=== PATIENT | female | born 1955 | race Caucasian/White ===

== ENCOUNTER 2020-09-25 12:38 | Emergency (ER) | payer OTHER, SELFPAY ==
--- NOTE | ~2020-09-25 | XR_ITS ---
EXAMINATION: XR foot LT min 3V DATE: 09/25/2020 13:08 INDICATION: Left foot pain TECHNIQUE: Dorsoplantar, lateral, and 2 oblique views of the left foot were obtained. COMPARISON: None. FINDINGS: There is soft tissue swelling of the foot overlying the distal metatarsals. There is a ques tionable nondisplaced fracture in the distal shaft of the fourth metatarsal. There is mild osteoarthr itis of multiple interphalangeal joints and moderate osteoarthritis at the first metatarsophalangeal joint. IMPRESSION: 1. Possible nondisplaced fracture at the distal shaft of the fourth metatarsal. Recommend correlation for tenderness at this site. Reviewed, dictated and finalized at location B.
[2020-09-25 12:52] VITALS: BP 143/70; PULSE 71; RESP 20; TEMP 36.8; O2SAT 98
--- NOTE | 2020-09-25 14:15 | ED.EXTPRO ---
HPI - Extremity Problem General Chief complaint: Extremity Problem,Nontraumatic Stated complaint: foot pain, non traumatic Time Seen by Provider: 09/25/20 14:01 Source: patient Mode of arrival: ambulatory Limitations: no limitations History of Present Illness HPI Narrative: Patient is a 65 year old female who presents with left foot pain and swelling x 1 day. Patient reports taking a step and feeling stabbing pain . She denies known injury. She denies history of dvt. Swelling noted to dorsal foot. She denies taking otc medication for pain, denies all other complaints at this time. Patient does have a history of gout, however, she takes allopurinol daily and has not had any recent flares. MD Complaint: extremity pain Related Data Allergies Allergy/AdvReac Type Severity Reaction Status Date / Time SHELLFISH Allergy Unknown Uncoded 09/11/18 12:46 Review of Systems Review of Systems: Narrative: CONSTITUTIONAL: Denies fever, chills, or sweats. EYES: Denies visual changes, redness, or discharge. ENT: Denies rhinorrhea, congestion, sore throat, or otalgia. CARDIOVASCULAR: Denies chest pain, palpitations, or edema. RESPIRATORY: Denies cough or dyspnea. GASTROINTESTINAL: Denies abdominal pain, nausea, vomiting, or diarrhea. GENITOURINARY: Denies dysuria or hematuria. SKIN: Denies rash or itching. MUSCULOSKELETAL: Reports left foot pain NEUROLOGIC: Denies headache, numbness, dizziness, or weakness. PSYCHIATRIC: Denies anxiety or depression. [facility] Past Medical History Medical History Diabetes Gout HTN (hypertension) Surgical History Surgical History H/O foot surgery History of hysterectomy Social History Social History (Updated 09/25/20 @ 14:21 by BRAYDON Zee) Smoking status: Never smoker Alcohol intake: never Substance use: never Occupation/Education: occupation Gender identity (if verbalized by the patient): Female Comments At the time of signature, I have reviewed and agree with nursing past medical, surgical, social, and family history unless otherwise noted. Please see nursing chart for further information. There is no relevant family history pertinent to the presenting complaint. Exam Narrative: Exam Narrative: GENERAL: Well-appearing, well-nourished, and in no acute distress. HEAD: Normocephalic, atraumatic. EYES: EOMI. No redness or drainage. Conjunctiva are normal. ENT: Mucous membranes pink and moist. CHEST: No respiratory distress. Clear to auscultation. HEART: Regular rate and rhythm. EXTREMITIES: Normal range of motion. Edema noted to left dorsal foot, tenderness with palpation along third/fourth metatarsal. Distal sensation intact, good capillary refill SKIN: Warm, dry, no rash. NEURO: No focal deficits. Alert and oriented x3. Gait steady. PSYCH: Normal affect. No signs of depression or anxiety. Course Vital Signs Vital signs: Vital Signs Temperature 36.8 C 09/25/20 12:52 Pulse Rate 71 09/25/20 12:52 Respiratory Rate 20 09/25/20 12:52 Blood Pressure 143/70 H 09/25/20 12:52 Pulse Oximetry 98 09/25/20 12:52 Temperature 36.8 C 09/25/20 12:52 Pulse Rate 79 09/25/20 14:29 Respiratory Rate 18 09/25/20 14:29 Blood Pressure 180/103 H 09/25/20 14:29 Pulse Oximetry 99 09/25/20 14:29 Reviewed-patient is informed that they may have pre-hypertension or hypertension based on a blood pressure reading. I recommend the patient call the primary care provider listed on their discharge instructions or a physician of their choice this week to arrange follow-up for further evaluation of possible pre-hypertension or hypertension. Procedures Orthopedic Splinting/Casting Injury #1: Splinting/Casting Date: 09/25/20 Splinting/Casting Time: 16:17 Side: left Lower Extremity Injury Location: foot Splint: customized in ED
[2020-09-25 14:29] VITALS: BP 180/103; PULSE 79; RESP 18; O2SAT 99
[2020-09-25 15:44] LABS: D Dimer 0.29 ug/mL (<0.48)
[2020-09-25 16:30] VITALS: BP 153/73; PULSE 74; RESP 16; O2SAT 98
[2020-09-25 16:59] VITALS: BP 149/70; PULSE 73; RESP 16; O2SAT 97
== END 2020-09-25 17:01 | disposition home or self-care (01) ==
PROVIDERS: Emergency Provider Nurse Practitioner; PCP Internal Medicine
DX: S92.345A Nondisplaced fracture of fourth metatarsal bone, left foot, initial encounter for closed fracture (principal); I10 Essential (primary) hypertension; M10.9 Gout, unspecified; E11.9 Type 2 diabetes mellitus without complications
CPT/HCPCS: 29515; 36415; 73630; 85380; 99284

== ENCOUNTER 2021-06-17 16:05 | Emergency (ER) | payer OTHER, SELFPAY ==
--- NOTE | ~2021-06-17 | XR_ITS ---
XR wrist LT min 3V DATE: 06/17/2021 16:47 INDICATION: Fall. Left wrist injury TECHNIQUE: 4 views COMPARISON: 09/07/2012 left wrist FINDINGS: There is prominent osteoarthritic change at the first carpometacarpal joint. There is osteo arthritis at the first metacarpophalangeal and interphalangeal joints. No fracture or dislocation, periosteal reaction or bone destruction is detected. Osteopenia. IMPRESSION: No recent fracture or dislocation Polyarticular osteoarthritis Osteopenia Reviewed, dictated and finalized at location A.
[2021-06-17 16:09] VITALS: BP 140/74; PULSE 89; RESP 15; O2SAT 98
--- NOTE | 2021-06-17 16:24 | PC.NURSE ---
Dr. Linda at bedside for pt assessment.
--- NOTE | 2021-06-17 16:45 | PC.NURSE ---
xray at bedside.
--- NOTE | 2021-06-17 17:34 | ED.UPPEXIN ---
HPI - Extremity Injury (Upper) General Chief Complaint: Extremity Injury, Upper Stated Complaint: right arm swelling Time Seen by Provider: 06/17/21 16:20 Source: RN notes reviewed History of Present Illness HPI narrative: Patient presents emergency room from home for left wrist pain. Patient states that she has pain in her left wrist that is worse with flexion extension of the wrist with some swelling over the ulnar aspect of the wrist. 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 and that gripping things and pulling the lever the pain worse she has pain is been ongoing for several weeks but is worsened over the past 2 days she also states that she has had numbness and tingling in her fourth and fifth digits of the left hand for approximately 2 months states she has had a cubital tunnel release on that left side but it was not effective she denies any direct trauma or injury states she took naproxen today Related Data Home Medications Medication Instructions Recorded Confirmed allopurinol 100 mg tablet 100 mg PO DAILY 09/30/20 01/11/21 atenolol 25 mg tablet 25 mg PO DAILY 09/30/20 01/11/21 furosemide 20 mg tablet 20 mg PO QAM 09/30/20 01/11/21 metformin 500 mg tablet 500 mg PO DAILY 09/30/20 01/11/21 sitagliptin 25 mg tablet 25 mg PO DAILY 09/30/20 01/11/21 Allergies Allergy/AdvReac Type Severity Reaction Status Date / Time SHELLFISH Allergy Unknown unknown Uncoded 06/17/21 16:20 Review of Systems Review of Systems: Gen.: Denies fevers or chills Musculoskeletal: See HPI Neuro: Reports numbness and tingling of left fourth and fifth digits Skin: Denies rash Endo: Denies DM PMFSH Past Medical History Medical History Diabetes Gout HTN (hypertension) Surgical History Surgical History H/O foot surgery History of hysterectomy Social History Social History Alcohol intake: never Substance use: never Gender identity (if verbalized by the patient): Female Exam Narrative: APPEARANCE: No acute distress, nontoxic, resting in bed Eyes: EOMI HEENT: Normocephalic, atraumatic, RESPIRATORY: No respiratory distress MUSCULOSKELETAl: Tender palpation diffusely over the left wrist mild swelling over the ulnar aspect with pain with flexion and extension of the wrist tenderness palpation over the carpal tunnel full flexion-extension of all 5 MCP and IP joints no tenderness of left elbow full range of motion radial pulse 2+ left extremity is neurovascular intact with five-point tactile discrimination down to 3 mm in the left fourth and fifth digits NEURO: Awake and alert. Following commands, speech normal, no focal deficits SKIN:: Warm, dry. Normal Color no rash or lesions Course Course Emergency Course: Discussed with patient results of workup and diagnosis. Discussed need for follow-up with primary care, proper use of medication, and reasons to return to the emergency department. Patient understands and agrees to current treatment plan discussed with patient wearing a cock-up wrist splint Vital Signs Vital signs: Vital Signs Pulse Rate 89 06/17/21 16:09 Respiratory Rate 15 06/17/21 16:09 Blood Pressure 140/74 06/17/21 16:09 Pulse Oximetry 98 06/17/21 16:09 Pulse Rate 89 06/17/21 16:09 Respiratory Rate 15 06/17/21 16:09 Blood Pressure 140/74 06/17/21 16:09 Pulse Oximetry 98 06/17/21 16:09 MDM - Extremity Injury (Upper) MDM Narrative Medical decision making narrative: Patient?s injury is consistent with muscular skeletal etiology. No signs of neurologic or vascular compromise to exam. Compartments are soft without signs of compartment syndrome. Pain is consistent with exam and injury. Suspect component of carpal tunnel outpatient follow-up with hand surgeon Imaging Data Radiologist's impress
== END 2021-06-17 17:50 | disposition home or self-care (01) ==
PROVIDERS: Emergency Provider Emergency Medicine; PCP Internal Medicine
DX: S63.502A Unspecified sprain of left wrist, initial encounter (principal); E11.9 Type 2 diabetes mellitus without complications; I10 Essential (primary) hypertension; M10.9 Gout, unspecified; M19.032 Primary osteoarthritis, left wrist; M85.832 Other specified disorders of bone density and structure, left forearm; Z79.84 Long term (current) use of oral hypoglycemic drugs; X50.9XXA Other and unspecified overexertion or strenuous movements or postures, initial encounter
CPT/HCPCS: 73110; 99283

== ENCOUNTER 2022-11-05 12:13 | Emergency (ER) | payer OTHER, SELFPAY ==
--- NOTE | ~2022-11-05 | XR_ITS ---
EXAMINATION: XR chest 2V DATE: 11/05/2022 13:30 INDICATION: Left chest pain TECHNIQUE: Frontal and lateral views of the chest are obtained COMPARISON: None available FINDINGS: There is an 8 mm nodule of the left upper lobe. No pleural effusion or pneumothorax. The ca rdiomediastinal silhouette is normal. There is moderate thoracic spondylosis. IMPRESSION: 1. No acute cardiopulmonary abnormality. 2. 8mm nodule of the left upper lobe. Follow-up nonemergent CT of the chest is recommended. Reviewed, dictated and finalized at location A.
--- NOTE | ~2022-11-05 | CT_ITS ---
EXAMINATION: CT abdomen pelvis wo con DATE: 11/05/2022 13:28 INDICATION: Left-sided abdominal pain TECHNIQUE: Computed tomography (CT) of the abdomen and pelvis was performed without intravenous contr ast. The dose-length product (DLP) was 1361.19 mGy-cm. Automated exposure control and iterative recon struction technique were employed. COMPARISON: None FINDINGS: The lung bases are clear. The heart size is normal. The liver, spleen, and right adrenal gl and are normal. There are punctate calcifications of the pancreas which could reflect chronic pancrea titis. There is mild gallbladder distention of unclear etiology or significance. There is a 1.6 cm lo w-density mass of the left adrenal gland, consistent with an adenoma. There is a 7 mm cyst of the rig ht kidney. The left kidney is unremarkable. No stones are identified in the kidneys, ureters, or blad lyndsay. No hydronephrosis or hydroureter. No pathologically enlarged abdominal or pelvic lymph nodes are identified. No free intraperitoneal gas or evidence of bowel obstruction. The appendix is normal. Co lonic diverticulosis is present without evidence of diverticulitis. There is severe lumbar spondylosi s at L4-5 and L5-S1. IMPRESSION: 1. No CT correlate for the patient's symptoms. Reviewed, dictated and finalized at location A.
[2022-11-05 12:17] VITALS: BP 142/63; PULSE 83; RESP 20; TEMP 36.4; O2SAT 99
[2022-11-05 12:36] LABS: Basophils Absolute Auto 0.1 K/mm3 (0.0-0.1); Basophils Percent Auto 0.6 % (0.2-1.2); Eosinophils Absolute Auto 0.3 K/mm3 (0-0.3); Eosinophils Percent Auto 4.2 % (0-4.4); Hematocrit 40.2 % (37.0-47.0); Hemoglobin 12.6 g/dL (12.0-15.0); Immature Granulocyte Absolute 0.01 K/mm3 (0.00-0.031); Immature Granulocyte Percent A 0.1 % (0-0.5); Lymphocytes Absolute Auto 2.81 K/mm3 (0.9-3.2); Lymphocytes Percent Auto 36.1 % (18.3-44.2); Mean Corpuscular HGB Conc 31.3 g/dl (32-36); Mean Corpuscular Volume 92.4 fl (80-100); Mean Platelet Volume 8.3 fl (7.4-10.4); Monocytes Absolute Auto 0.5 K/mm3 (0.1-0.6); Monocytes Percent Auto 6.8 % (2.6-8.5); Neutrophils Absolute Auto 4.1 K/mm3 (1.3-6.7); Neutrophils Percent Auto 52.2 % (45.5-73.1); Platelet Count Result 270 k/mm3 (150-375); Red Blood Count 4.35 M/mm3 (4.2-5.4); Red Cell Distribution Width 15.3 % (11.5-14.5); White Blood Count 7.8 K/mm3 (4.5-10.0)
[2022-11-05 12:46] LABS: Alanine Aminotransferase 26 U/L (6-35); Albumin Level 4.2 g/dL (3.5-5.1); Alkaline Phosphatase 84 U/L (38-126); Anion Gap 5 mmol/L (8-16); Aspartate Amino Transferase 30 U/L (14-36); Bilirubin,Total 0.4 mg/dL (0.2-1.3); Blood Urea Nitrogen 10 mg/dL (7-17); Calcium 9.2 mg/dL (8.4-10.2); Carbon Dioxide 30 mmol/L (22-30); Chloride 101 mmol/L (98-107); Estimated CRCL calculation 89 ml/min; Estimated Glomerular Filt Rate > 60; Glucose 118 mg/dL (65-110); Lipase 100 U/L (23-300); Potassium 4.7 mmol/L (3.4-5.0); Sodium 136 mmol/L (137-145)
--- NOTE | 2022-11-05 12:54 | ED.ABDPAIN ---
HPI - Abdominal Pain General Chief Complaint: Abdominal Pain Stated Complaint: L SIDED INT ABD PAIN X2 WKS Time Seen by Provider: 11/05/22 12:49 History of Present Illness HPI narrative: Patient is a 67-year-old female history of diabetes, hypertension here with multiple complaints including left-sided upper abdominal pain and rash. Patient notes that 2 weeks ago she noted some left flank/ upper abdominal pain. She notes it was sharp, present for several minutes during the middle of the night and self-resolved at that time after taking ibuprofen. She notes it began again last night around 2:00 a.m. in the morning. Pain has been present since that time, sharp in nature and she feels as though she may have a knot in the area that she can feel. The pain is worse with eating or drinking. She denies any associated hematuria, dysuria. She does have chronic urinary frequency issues due to her diabetes. She additionally has chronic nausea associated with her diabetic medication. no shortness of breath or cough. No chest pain. No associated diarrhea or constipation. No blood in her stool. Last colonoscopy was approximately 6 years ago, couple of polyps were seen at that time and she is advised repeat at 10 year daniel. She denies fever, has had some chills. Additionally, patient believes she has a spider bite on her right calf which occurred in August, it has been healing irregularly since that time, when it began she also noted a rash to her right wrist and lower arm. She has been using tea tree oil and coconut oil on the wounds with minimal help. She note a similar lesion present on her left neck which has been present for more than 1 month as well. No drainage from the wounds at this time. She has not seen her PCP or her implementation project coordinator for these skin lesions. Related Data Home Medications Medication Instructions Recorded Confirmed allopurinol 100 mg tablet 100 mg PO DAILY 09/30/20 01/11/21 atenolol 25 mg tablet 25 mg PO DAILY 09/30/20 01/11/21 furosemide 20 mg tablet 20 mg PO QAM 09/30/20 01/11/21 metformin 500 mg tablet 500 mg PO DAILY 09/30/20 01/11/21 sitagliptin phosphate 25 mg tablet 25 mg PO DAILY 09/30/20 01/11/21 (Januvia) Allergies Allergy/AdvReac Type Severity Reaction Status Date / Time SHELLFISH Allergy Unknown unknown Uncoded 06/17/21 16:20 Review of Systems Review of Systems: CONSTITUTIONAL: Has chills, Denies fever, sweats. EYES: Denies visual changes, redness, or discharge. ENT: Denies rhinorrhea, congestion, sore throat, or otalgia. CARDIOVASCULAR: Denies chest pain, palpitations, or edema. RESPIRATORY: Denies cough or dyspnea. GASTROINTESTINAL: abdominal pain, nausea, no vomiting, or diarrhea. GENITOURINARY: Denies dysuria or hematuria. SKIN: Rash MUSCULOSKELETAL: Denies back pain, joint pain, or myalgia. NEUROLOGIC: Denies headache, numbness, or weakness. [facility] Past Medical History Medical History Diabetes Gout HTN (hypertension) Surgical History Surgical History H/O foot surgery History of hysterectomy Social History Social History Alcohol intake: never Substance use: never Occupation/Education: occupation Gender identity (if verbalized by the patient): Female Exam Narrative: GENERAL: Well-appearing, well-nourished, and in no acute distress. HEAD: Normocephalic, atraumatic. EYES: PERRLA and EOMI. ENT: Nares clear. Mucous membranes moist. NECK: Supple. CHEST: Clear to auscultation. No respiratory distress. HEART: Regular rate and rhythm. Normal peripheral pulses. ABDOMEN: Soft, nondistended. Left CVA tenderness. No right CVA tenderness, no abdominal tenderness. EXTREMITIES: Normal range of motion. No edema. SKIN: Warm, dry, 3x3 mm circular lesion present on the right calf, no surrounding evidence of infectio
--- NOTE | 2022-11-05 13:07 | ECG_ITS ---
Measurements Intervals [place] Rate: 65 P: 34 GA: 145 QRS: 51 QRSD: 90 T: 54 QT: 406 QTc: 423 Interpretive Statements SINUS RHYTHM LOW QRS VOLTAGE IN PRECORDIAL LEADS BASELINE ARTIFACT- I, II, AVR BORDERLINE ECG NO PREVIOUS ECG AVAILABLE FOR COMPARISON Electronically Signed On 11-05-2022 15:57:26 CDT by Dawit Lopes D.O.
[2022-11-05 13:20] LABS: Appearance Urine Cloudy (Clear); Bacteria Urine 4+ /hpf; Bilirubin Urine Negative (Negative); Blood Urine Negative (Negative); Color Urine Yellow (Yellow); Glucose Urine UA Negative (Negative); Ketones Urine Negative (Negative); Leukocyte Esterase Ur 2+ LEU/UL (Negative); Nitrate Urine Negative (Negative); Protein Urine Negative (Negative); RBC Urine 0-2 /hpf (0-2); Specific Grav Ur 1.007 (1.001-1.035); Squamous Epithelial Cell Urine Occasional /hpf (Few); Urobilinogen Urine 0.2 mg/dL (<2.0); WBC Urine 21-50 /hpf; pH Urine 5.5 (5.0-9.0)
[2022-11-05 13:23] LABS: Lipase 98 U/L (23-300)
[2022-11-05 13:31] LABS: Add Urine Microscopic? YES
[2022-11-05 13:36] LABS: Troponin I < 0.012 ng/mL (0.000-0.034)
[2022-11-05 14:05] LABS: Glucose Point of Care 131 mg/dl (65-105)
[2022-11-05] MEDS: KETOROLAC 15 MG/ML VIAL (*BKC) IV PUSH (15:08)
[2022-11-05] MEDS: CEPHALEXIN 500 MG CAPSULE PO (15:12)
== END 2022-11-05 15:20 | disposition home or self-care (01) ==
PROVIDERS: Emergency Medicine; Emergency Provider Student in an Organized Health Care Education/Training Program; PCP Internal Medicine
DX: N39.0 Urinary tract infection, site not specified (principal); E11.9 Type 2 diabetes mellitus without complications; I10 Essential (primary) hypertension
CPT/HCPCS: 36415; 71046; 74176; 80053; 81001; 82948; 83690; 83735; 84484; 85025; 87077; 87086; 87186; 93005; 96374; 99284; A9270; J1885

== ENCOUNTER 2023-06-18 11:42 | Emergency (ER) | payer OTHER, SELFPAY ==
--- NOTE | ~2023-06-18 | XR_ITS ---
EXAMINATION: XR hip LT 2V w AP pelvis DATE: 06/18/2023 12:18 INDICATION: 3 days of sacroiliac and left hip pain with radiculopathy TECHNIQUE: Anteroposterior view of the pelvis and anteroposterior and frog-leg lateral views of the l eft hip were obtained. COMPARISON: CT dated 11/05/2022 FINDINGS: Bone alignment is normal. No fracture or suspected avascular necrosis. Bilateral hip joint spaces are normal. Mild osteoarthritis at the bilateral sacroiliac joints without evident erosions to suggest i nflammatory sacroiliitis. Enthesopathic ossification along the left greater trochanter. Severe lower lumbar spondylosis. IMPRESSION: 1. Severe lower lumbar spondylosis and mild bilateral sacroiliac osteoarthritis. Reviewed, dictated and finalized at location A. IMPRESSION: 1. Severe lower lumbar spondylosis and mild bilateral sacroiliac osteoarthritis .
[2023-06-18 11:44] VITALS: BP 172/63; PULSE 79; RESP 14; TEMP 36.5; O2SAT 96
--- NOTE | 2023-06-18 11:58 | ED.LOWEXIN ---
HPI - Extremity Injury (Lower) General Chief Complaint: Extremity Injury, Lower Stated Complaint: L leg pain Time Seen by Provider: 06/18/23 11:46 Source: patient Mode of arrival: ambulatory Limitations: no limitations History of Present Illness HPI Narrative: [place] is a 67-year-old female patient presenting to the clinic today with complaints left posterior hip/leg pain. She reports this has been going on for the past few days. Rates her pain 8/10 currently. States the pain is and posterior hip and radiating into the left leg. Does have history of diabetes with diabetic neuropathy. Denies any known injury. Denies any loss of bowel or bladder. Related Data Home Medications Medication Instructions Recorded Confirmed allopurinol 100 mg tablet 100 mg PO DAILY 09/30/20 01/11/21 atenolol 25 mg tablet 25 mg PO DAILY 09/30/20 01/11/21 furosemide 20 mg tablet 20 mg PO QAM 09/30/20 01/11/21 metformin 500 mg tablet 500 mg PO DAILY 09/30/20 01/11/21 sitagliptin phosphate 25 mg tablet 25 mg PO DAILY 09/30/20 01/11/21 (Januvia) Allergies Allergy/AdvReac Type Severity Reaction Status Date / Time SHELLFISH Allergy Unknown unknown Uncoded 06/17/21 16:20 Review of Systems Review of Systems: Pertinent positives per HPI. Patient denies any fever, chills, rash, headache, visual changes, dizziness, cough, runny nose, sore throat, shortness of breath, chest pain, palpitations, nausea, vomiting, diarrhea, constipation, abdominal pain, or any urinary issues. [facility] Past Medical History Medical History Diabetes Gout HTN (hypertension) Surgical History Surgical History H/O foot surgery History of hysterectomy Social History Social History Alcohol intake: never Substance use: never Occupation/Education: occupation Gender identity (if verbalized by the patient): Female Comments At the time of my signature, I reviewed and agree with the nursing past medical, surgical, social, and family history. There is no relevant family history pertinent to the patient complaint. Exam Narrative: General: Well-developed, well nourished, in no apparent distress Head: Normocephalic, atraumatic. Cardio: Regular rate and rhythm, s1 and s2 normal, no murmur appreciated. Resp: Clear to auscultation bilaterally, no rhonchi, rales, wheezing or rubs. Musculoskeletal: No deformity, tender to palpation over the left SI joint, pain with full flexion of hip and external rotation, grossly normal range of motion, negative foot drop, patellar reflexes 2+, muscle strength strong and equal, peripheral pulse strong, no edema, no cyanosis, normal gait and station Course Course Emergency Course: Portions of this record may have been created with voice recognition software. Vital Signs Vital signs: Vital Signs Temperature 36.5 C 06/18/23 11:44 Pulse Rate 79 06/18/23 11:44 Respiratory Rate 14 06/18/23 11:44 Blood Pressure 172/63 H 06/18/23 11:44 Pulse Oximetry 96 06/18/23 11:44 Oxygen Delivery Room Air 06/18/23 11:44 Temperature 36.5 C 06/18/23 11:44 Pulse Rate 79 06/18/23 11:44 Respiratory Rate 14 06/18/23 11:44 Blood Pressure 172/63 H 06/18/23 11:44 Pulse Oximetry 96 06/18/23 11:44 Oxygen Delivery Room Air 06/18/23 11:44 Vital signs reviewed MDM - Extremity Injury (Lower) MDM Narrative Medical decision making narrative: At the time of visit patient is resting comfortably on the exam table. Patient appears to be nontoxic. Diagnostics: X-ray of the left hip and pelvis shows severe lower lumbar spondylosis and mild bilateral sacroiliac osteoarthritis. Plan: Supportive measures were discussed with the patient and they voiced understanding discharge instructions and agrees to treatment plan. Return precauti
== END 2023-06-18 13:40 | disposition home or self-care (01) ==
PROVIDERS: Emergency Provider Nurse Practitioner Family; PCP Internal Medicine
DX: M46.1 Sacroiliitis, not elsewhere classified (principal); M47.816 Spondylosis without myelopathy or radiculopathy, lumbar region; I10 Essential (primary) hypertension; E11.40 Type 2 diabetes mellitus with diabetic neuropathy, unspecified; M10.9 Gout, unspecified; Z90.710 Acquired absence of both cervix and uterus; Z79.84 Long term (current) use of oral hypoglycemic drugs
CPT/HCPCS: 73502; 99283; A4565

== ENCOUNTER 2023-10-18 13:11 | Emergency (ER) | payer OTHER, SELFPAY ==
[2023-10-18 13:20] VITALS: BP 132/71; PULSE 92; RESP 16; TEMP 36.7; O2SAT 97
--- NOTE | 2023-10-18 13:30 | ED.SKABFB ---
HPI - Skin/Abscess/Foreign Bdy General Chief complaint: Skin/Abscess/Foreign Body Stated complaint: rash all over Time Seen by Provider: 10/18/23 13:13 Source: patient, RN notes reviewed and old records reviewed Mode of arrival: ambulatory Limitations: no limitations History of Present Illness HPI narrative: 68 year old female presents to [facility] care with complaints of red raised itchy rash for the past 3 days especially to her right arm, right leg and to lower face and around right eye likely poison nadya after outdoor activities. Patient has patch of red purplish tissue to right inner lower leg concern may be infected, no pustule formation or drainage noted. Patient reports that she has used Neosporin and peroxide to some of the areas.Reports no fevers. MD complaint: rash and other (red puplish area right inner lower leg) Onset (ago): day(s) (3) Severity: moderate Quality: pruritic Treatments prior to arrival: other (Neosporin and peroxide) Related Data Home Medications Medication Instructions Recorded Confirmed atenolol 25 mg tablet 25 mg PO DAILY 09/30/20 10/18/23 furosemide 20 mg tablet 20 mg PO QAM 09/30/20 10/18/23 sitagliptin phosphate 25 mg tablet 25 mg PO PRN 09/30/20 10/18/23 (Januvia) allopurinol 100 mg tablet 100 mg PO DAILY 10/18/23 10/18/23 citalopram 20 mg tablet 20 mg PO 10/18/23 tirzepatide 10 mg/0.5 mL See Rx Instructions .Route .COMPLEX 10/18/23 10/18/23 subcutaneous pen injector (Mounjaro) Allergies Allergy/AdvReac Type Severity Reaction Status Date / Time SHELLFISH Allergy Unknown unknown Uncoded 10/18/23 13:18 Review of Systems Review of Systems: CONSTITUTIONAL: Denies fever, chills, or sweats. CARDIOVASCULAR: Denies chest pain, palpitations, or edema. RESPIRATORY: Denies cough or dyspnea. SKIN: Reports red raised itchy rash to face, right arm and to right lower leg likely exposure to poison plant, has patch of red puplish patch left inner lower leg concerned for infection MUSCULOSKELETAL: Denies joint pain or myalgia. NEUROLOGIC: Denies headache, numbness, or weakness. All systems reviewed & are unremarkable except as noted in HPI and below PMFSH Past Medical History Medical History (Updated 10/20/23 @ 09:33 by Tennille Vargas NP) Diabetes Fracture of posterior malleolus of left tibia Gout HTN (hypertension) Surgical History Surgical History H/O foot surgery History of hysterectomy Social History Social History (Updated 10/20/23 @ 09:26 by Tennille Vargas NP) Smoking status: Never smoker Alcohol intake: never Substance use: never Occupation/Education: occupation Gender identity (if verbalized by the patient): Female Comments At time of signature, agree with nursing past medical, surgical, social and family history. There is no relevant family history pertinent to the presenting complaint Exam Narrative: GENERAL: Well-appearing, well-nourished, and in no acute distress.no fevers HEAD: Normocephalic, atraumatic. EYES: PERRLA, conjunctivae clear, and EOMI. ENT: Mucous membranes moist. Oropharynx without edema, erythema or lesions. NECK: Supple. No lymphadenopathy CHEST: Clear to auscultation. No respiratory distress.SAO2 97% on room air HEART: Regular rate and rhythm. SKIN: Warm, dry.? Patches of erythema raised rash to right arm right leg,lower face and around right eye which is itchy, area of red purplish tissue to right inner lower leg with no drainage or pustule formation 1cm X 2cm is size with voiced concern from patient about infection and some palpable tenderness NEURO:? Alert and oriented x3. PSYCH: Normal mood and affect Course Course Emergency Course: Patient is aware of diagnosis, understands and agrees to treatment plan.? Anticipatory guidance given.? Patient agrees to follow-up as directed and is aware of reasons to seek care at the emergency departme
[2023-10-18] MEDS: methylPREDNISolone ACETATE 80 MG/ML VIAL IM (13:59)
== END 2023-10-18 14:20 | disposition home or self-care (01) ==
PROVIDERS: Emergency Provider Registered Nurse; PCP Internal Medicine
DX: L02.415 Cutaneous abscess of right lower limb (principal); L25.5 Unspecified contact dermatitis due to plants, except food; E11.9 Type 2 diabetes mellitus without complications; M10.9 Gout, unspecified; I10 Essential (primary) hypertension
CPT/HCPCS: 96372; 99213; G0463; J1010

== ENCOUNTER 2024-03-08 10:51 | Emergency (ER) | payer OTHER, SELFPAY ==
[2024-03-08 10:56] VITALS: BP 115/67; PULSE 90; RESP 16; TEMP 36.1; O2SAT 97
--- NOTE | 2024-03-08 11:06 | ED.SKABFB ---
HPI - Skin/Abscess/Foreign Bdy General Chief complaint: Skin/Abscess/Foreign Body Stated complaint: boil on left arm/right leg Time Seen by Provider: 03/08/24 11:08 Source: patient Mode of arrival: ambulatory Limitations: no limitations History of Present Illness HPI narrative: 68 y/o female with hx DM presented for c/o a boil to the left upper arm x6 days, and reports concern for a skin lesion to right lower leg that 'was a boil' as well. (Per notes pt was seen 10/2023 for poison nadya to these areas). Endorses the left arm site started as a bump and has spread. States she has been applying alcohol and neosporin. Has noted clear drainage. Related Data Home Medications ?Medication ?Instructions ?Recorded ?Confirmed ?Last Taken ?Type atenolol 25 mg tablet 25 mg PO DAILY 09/30/20 03/08/24 Unknown History furosemide 20 mg tablet 20 mg PO QAM 09/30/20 03/08/24 Unknown History allopurinol 100 mg tablet 100 mg PO DAILY 10/18/23 03/08/24 Unknown History citalopram 20 mg tablet 20 mg PO 10/18/23 Unknown History tirzepatide 10 mg/0.5 mL See Rx Instructions .Route .COMPLEX 10/18/23 03/08/24 Unknown History subcutaneous pen injector (Mounjaro) cyclobenzaprine 10 mg tablet mg 03/08/24 Unknown History Allergies Allergy/AdvReac Type Severity Reaction Status Date / Time SHELLFISH Allergy Unknown unknown Uncoded 03/08/24 10:59 Review of Systems Review of Systems: CONSTITUTIONAL: Denies body aches, fever, chills, or sweats. EYES: Denies visual changes, redness, or discharge. ENT: Denies rhinorrhea, congestion CARDIOVASCULAR: Denies chest pain, palpitations, or edema. RESPIRATORY: Denies cough or dyspnea. GASTROINTESTINAL: Denies abdominal pain, nausea, vomiting, or diarrhea. SKIN: per HPI MUSCULOSKELETAL: Denies back pain, joint pain, or myalgia. NEUROLOGIC: Denies headache, numbness, tingling, or weakness. [facility] Past Medical History Medical History Fracture of posterior malleolus of left tibia Gout Diabetes HTN (hypertension) Surgical History Surgical History History of hysterectomy H/O foot surgery Social History Social History Smoking status: Never smoker Alcohol intake: never Substance use: never Occupation/Education: occupation Gender identity (if verbalized by the patient): Female Comments At time of signature, I have reviewed and agree with nursing past medical, surgical, social and family history unless otherwise noted. Please see nursing chart for further information. There is no relevant family history pertinent to the presenting complaint Exam Narrative: GENERAL: Well-appearing ENT: Mucous membranes moist. Oropharynx without edema, erythema or lesions. NECK: Supple. No lymphadenopathy CHEST: Clear to auscultation. HEART: Regular rate and rhythm. SKIN: Warm, dry. Left upper arm with 0.5cm firm raised red area and surrounding erythema of 3cm diameter. nontender no drainage or fluctuance. Skin appears excoriated and irritated from suspected picking. Right lower leg wound she refers to is scabbed, healed, no redness swelling or warmth. NEURO: Alert and oriented x3. Course Course Emergency Course: Patient is aware of diagnosis, understands and agrees to treatment plan. Anticipatory guidance given. Patient agrees to follow-up as directed and is aware of reasons to seek care at the emergency department. Portions of this record may have been created with voice recognition software Level of Care: Express Care Visit Vital Signs Vital signs: Vital Signs Temperature 97 F L 03/08/24 10:56 Pulse Rate 90 03/08/24 10:56 Respiratory Rate 16 03/08/24 10:56 Blood Pressure 115/67 03/08/24 10:56 Pulse Oximetry 97 03/08/24 10:56 Oxygen Delivery Room Air 03/08/24 10:56 Temperature 97 F L 03/08/24 10:56 Pulse Rate 90 03/08/24 10:56 Respiratory Rate 16 03/08/24 10:56 Blood Pressure 115/67 03/08/24 10:56 Pulse Oximetry 97 03/08/24 10:56 Oxygen Delivery Room Air 03/08/24 10:56 Reviewed MDM - Skin/Abscess/Foreign Bdy MDM Narrative Medical decision making narrative: Discussed physical exam findings, LUE with cellulitis likely 2/2 pt picking the sites. Reviewed Rx's. Pt is advised not to pick the sites. Advised supportive measures and signs/symptoms to go to the ER. Pt is appropriate for outpt treatment and f/u with pcp as scheduled in 3 days. Differential Diagnosis Differential diagnosis: Likely abscess of skin or subcutaneous tissue, urticaria, herpes zoster, cellulitis and contact dermatitis Discharge Plan Discharge Clinical Impression: Cellulitis Patient Disposition: Home, Self-Care Condition: Stable Instructions: Antibiotic Form, Cellulitis (ED) Additional Instructions: Keep the area clean and dry - cleanse with warm water and mild soap and allow to fully dry. apply the ointment as prescribed to the left arm site No additional treatment is needed for the leg wound, it is healing. Do not cleanse with hydrogen peroxide or alcohol Do not pick at the wounds. Keep it open to air (no bandages unless the site is draining) Watch for worsening symptoms including pain, redness, swelling, streaking, pus/drainage, fever. Go to the ER with any of these symptoms or concerns. Follow up with primary care provider next week as scheduled Patient Language: Malaysian Prescriptions: New cephalexin 500 mg capsule 500 mg PO Q8H 5 Days Qty: 15 0RF mupirocin 2 % ointment 1 applic topical BID 7 Days Qty: 22 0RF No Action Mounjaro 10 mg/0.5 mL pen injector See Rx Instructions .ROUTE .COMPLEX Rx Instructions: as prescribed allopurinol 100 mg tablet 100 mg PO DAILY citalopram 20 mg tablet 20 mg PO triamcinolone acetonide 0.1 % ointment 1 applic topical BID Qty: 80 0RF Rx Instructions: apply to rash twice daily never apply to face cyclobenzaprine 10 mg tablet atenolol 25 mg tablet 25 mg PO DAILY furosemide 20 mg tablet 20 mg PO QAM Follow-up/Referrals: Moncho,Danny Hoskins MD [Primary Care Provider] - Time of Disposition: 11:18
== END 2024-03-08 11:20 | disposition home or self-care (01) ==
PROVIDERS: Emergency Provider Nurse Practitioner Family; PCP Internal Medicine
DX: L03.114 Cellulitis of left upper limb (principal); E11.9 Type 2 diabetes mellitus without complications; I10 Essential (primary) hypertension; M10.9 Gout, unspecified
CPT/HCPCS: 99213; G0463

== ENCOUNTER 2024-04-06 13:50 | Emergency (ER) | payer OTHER, SELFPAY ==
--- OUTSIDE RECORDS SUMMARY | 2024-04-06 13:52 | XMS_ITS | CONTINUITY OF CARE DOCUMENT ---
Author Name panda mosqueda Address Unknown Organization [facility] Address [address] [place] [address] [address] [place] [address] Phone [phone] Care Team Providers Care Detective Investigator Name Role Phone panda mosqueda Unavailable Unavailable
--- OUTSIDE RECORDS SUMMARY | 2024-04-06 13:52 | XMS_ITS | Encounter Summary ---
Author Organization [facility] Address [address] [place] [address] Phone Care Team Providers Care Field Sales Manager Name Role Phone Danny Ivan MD Primary Care Provider [phone] Reason for Visit * Reason Comments Medication Refill Encounter Details Date Type Department Care Team (Late st Contact Info) Description 04/03/2022 Refill [facility] - Internal Medicine - [place] [address] [place] [address] Danny Ivan MD [address] [place] [address] Medication Refill Social History Tobacco Use Types Packs/Day Years Used Date Smoking Tobacco: Never Smokeless Tobacco: Never Alcohol Use Standard Drinks/Week Comments Not Currently 0 (1 standard drink = 0.6 oz pur e alcohol) PHQ-2 Answer Date Recorded Total Score - Questions 1-9 0 06/04 Sexually Active Control Partners Comments Not Currently Comments No Sex and Gender Information Value Date Recorded Sex Assigned at Not on file Legal Sex Female 8:42 PM CDT Gender Identity Not on file Sexual Orientation Not on file documented as of this encounter Miscellaneous Notes * Telephone Encounter - Brandy White RN - 04/04/2022 8:32 AM CST Medication failed the protocol, provider to review and approve the medication order if appropriate. Requested Prescriptions Pending Prescriptions Disp Refills furosemide (LASIX) 20 MG Tablet [Pharmacy Med Name: FUROSEMIDE TABS 20MG] 90 Tablet 3 Sig: TAKE 1 TABLET DAILY Diuretics Protocol Failed - 04/03/2022 11:41 PM Failed - Serum potassium on record in past 12 months No results found for: POTASSIUM, POCTK Failed - Serum sodium on record in past 12 months No results found for: SODIUM Failed - GFR on record in past 12 months No results found for: GFRNA Passed - Blood pressure on record in past 12 months Clinician-entered: BP Readings from Last 3 Encounters: 01/26/22 142/70 01/06/22 138/66 10/06/21 126/74 Patient-entered: No data recorded Passed - Visit with relevant provider in past 12 months or upcoming 90 days Recent Visits Date Type Provider Dept 01/26/22 Office Visit Danny Ivan MD [facility] 01/06/22 Office Visit Danny Ivan MD [facility] 10/06/21 Office Visit Danny Ivan MD [facility] [place] 07/08/21 Office Visit Kimmy Cameron, PAC [facility] 06/24/21 Office Visit Kimmy Cameron, PAC [facility] [place] 06/18/21 Office Visit Kimmy Cameron, PAC [facility] [place] 06/14/21 Office Visit Danny Ivan MD [facility] [place] Show[facility] recent visits within past 365 days and meeting all other requirements Future Appointments Date Type Provider Dept 04/14/22 Appointment Danny Ivan MD [facility] [place] [facility] future appointments within next 90 days and meeting all other requirements allopurinol (ZYLOPRIM) 100 MG Tablet [Pharmacy Med Name: ALLOPURINOL TABS 100MG] 90 Tablet 3 Sig: TAKE 1 TABLET DAILY Gout Agents Protocol Failed - 04/03/2022 11:41 PM Failed - Uric acid on record in past 12 months No results found for: URIC Failed - Serum creatinine on record in past 12 months No results found for: CREATININE Passed - Visit with relevant provider in past 12 months or upcoming 90 days Recent Visits Date Type Provider Dept 01/26/22 Office Visit Danny Ivan MD [facility] [place] 01/06/22 Office Visit Danny Ivan MD [facility] 10/06/21 Office Visit Danny Ivan MD [facility] 07/08/21 Office Visit RakeshLylaKimmydaniele Vuong, PAC [facility] [place] 06/24/21 Office Visit Rakesh, Kimmy Vuong, PAC [facility] [place] 06/18/21 Office Visit RakeshKimmy clayton, PAC [facility] [place] 06/14/21 Office Visit Danny Ivan MD [facility] [place] Show[facility] recent visits within past 365 days and meeting all other requirements Future Appointments Date Type Provider Dept 04/14/22 Appointment Danny Ivan MD [facility] [place] [facility] future appointments within next 90 days and meeting all other requirements [employer]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[employer] documented in this encounter Plan of Treatment Upcoming Encounters Date Type Department Care Team (Late st Contact Info) Description 06/10/2024 10:00 AM CDT Office Visit [facility] - Internal Medicine - [place] [address] [place] [address] Danny Iavn MD [address] [place] [address] documented as of this encounter Visit Diagnoses Not on filedocumented in this encounter Care Teams Field Sales Manager Relationship Specialty Start Date End Date Danny Ivan MD [address] [place] [address] PCP - General Internal Medicine 05/26/21 documented as of this encounter
--- OUTSIDE RECORDS SUMMARY | 2024-04-06 13:52 | XMS_ITS | Encounter Summary ---
Author Organization [facility] Address [address] [place] [address] Phone Care Team Providers Care Lawn Care Worker Name Role Phone Danny Ivan MD Primary Care Provider [phone] Reason for Visit * Reason Comments Medication Refill Encounter Details Date Type Department Care Team (Late st Contact Info) Description 05/20/2022 Refill [facility] - [facility] Medicine - [place] [address] [place] [address] Danny Ivan MD [address] [place] [address] Medication Refill Social History Tobacco [...] Telephone Encounter - Brandy White RN - 05/20/2022 9:20 AM CDT Medication failed the protocol, provider to review and approve the medication order if appropriate. Requested Prescriptions Pending Prescriptions Disp Refills naproxen (NAPROSYN) 250 MG Tablet [Pharmacy Med Name: NAPROXEN 250 MG TABLET] 60 Tablet 0 Sig: TAKE 1 TABLET BY MOUTH TWICE A DAY NSAIDs Protocol Failed - 05/20/2022 1:55 AM Failed - Normal serum creatinine in past 12 months No results found for: CREATININE Failed - No matching NSAID med order in past 45 days Matching medication order placed on 04/14/2022 8:38 AM Order [id number]: naproxen (NAPROSYN) 250 MG Tablet (For orders placed between 04/05/2022 9:20 AM and 05/20/2022 9:20 AM) Failed - AST less than 55 or ALT less than 90 in past 12 months No results found for: SGOTAST No results found for: SGPTALT Failed - HGB greater than 10 or HCT greater than 30 in past 12 months No results found for: HEMOGLOBIN, HEMATOCRIT Passed - Visit with relevant provider in past 12 months or upcoming 90 days Recent Visits Date Type Provider Dept 04/14/22 Office Visit Danny Ivan MD [facility] 01/26/22 Office Visit Danny Ivan MD [facility] 01/06/22 Office Visit Danny Ivan MD [facility] 10/06/21 Office Visit Danny Ivan MD [facility] 07/08/21 Office Visit Kimmy Cameron, PAC [facility] [place] 06/24/21 Office Visit Kimmy Cameron, [facility] [place] 06/18/21 Office Visit Kimmy Cameron, [facility] [place] 06/14/21 Office Visit Danny Ivan MD [facility] Showing recent visits within past 365 days and meeting all other requirements Future Appointments Date Type Provider Dept 07/14/22 Appointment Danny Ivan MD [facility] Show[facility] future appointments within next 90 days and meeting all other requirements documented in this encounter Plan of Treatment Upcoming Encounters Date Type Department Care Team (Late st Contact Info) Description 06/10/2024 10:00 AM CDT Office Visit [facility] - Internal Medicine [facility] [address] [place] [address] Danny Ivan MD [address] [address] documented as of this encounter Visit Diagnoses Not on filedocumented in this encounter Care Teams Lawn Care Worker Relationship Specialty Start Date End Date Danny Ivan MD [address] [place] [address] PCP - General Internal Medicine 05/26/21 documented as of this encounter
--- OUTSIDE RECORDS SUMMARY | 2024-04-06 13:52 | XMS_ITS | Encounter Summary ---
Author Organization [facility] Address [address] [place] [address] Phone Care Team Providers Care Public Health Engineer Name Role Phone Danny Ivan MD Primary Care Provider [phone] Reason for Visit * Reason Comments Medication Refill Encounter Details Date Type Department Care Team (Late st Contact Info) Description 05/22/2023 Refill [facility] - Internal Medicine - [place] [address] [place] [address] Danny Ivan MD [address] [facility] [place] [address] Medication Refill Social History Tobacco Use Types Packs/Day Years Used Date Smoking Tobacco: Never Passive Smoke Exposure: Never Smokeless Tobacco: Never Alcohol Use Standard Drinks/Week Comments Not Currently 0 (1 standard drink = 0.6 oz pur e alcohol) [facility] Utilities Answer Date Recorded In the past 12 months has [employer] gas, oil, or water [employer] threatened to shut off services in your home? No 05/22/2023 Social Connection and Isolation Panel [NHANES] A nswer Date Recorded In a typical week, how many times do you talk on the phone with family, friends, or neighbors? Patient declined 05/22/2023 How often do you get togethe r with friends or relatives? Patient declined 05/22/2023 How often do you attend jehovah's witness or gnosticist serv ices? Patient declined 05/22/2023 Do you belong to any clubs o r organizations such as jehovah's witness groups, unions, fraternal or athletic groups, or school groups? Patient declined 05/22/2023 How often do you attend meet ings of the clubs or organizations you belong to? Patient declined 05/22/2023 Are you , , di vorced, , never , or living with a partner? 05/22/2023 AUDIT-C Answer Date Recorded Q1: How often do you have a drink containing alcohol? Never 05/22/2023 Q2: How many drinks containi ng alcohol do you have on a typical day when you are drinking? Patient does not drink Q3: How often do you have si x or more drinks on one occasion? Never 05/22/2023 Overall Financial Resource Strain (CARDIA) Answe r Date Recorded How hard is it for you to pa y for the very basics like food, housing, medical care, and heating? Not hard at all 05/22/2023 PHQ-2 Answer Date Recorded Total Score - Questions 1-9 0 05/05 [facility] of Occupat ional [facility] - Occupational Stress Questionnaire Answer Date Recorded Do you feel stress - tense, restless, nervous, or anxious, or unable to sleep at night because your mind is troubled all the time - these days? Not at all 05/22/2023 Exercise Vital Sign Answer Date Recorde d On average, how many days pe r week do you engage in moderate to strenuous exercise (like a brisk walk)? Patient declined On average, how many minutes do you engage in exercise at this level? Patient declined 05/22/2023 Hunger Vital Sign Answer Date Recorded Within the past 12 months, y ou worried that your food would run out before you got the money to buy more. Never true 05/22/19 24 Within the past 12 months, t he food you bought just didn't last and you didn't have money to get more. Never true 05/22/2023 PRAPARE - Transportation Answer Date Re corded In the past 12 months, has l ack of transportation kept you from medical appointments or from getting medications? No 05/04 In the past 12 months, has l ack of transportation kept you from meetings, work, or from getting things needed for daily living? No 05/22/2023 Housing Stability Vital Sign Answer Travis e Recorded In the last 12 months, was t here a time when you were not able to pay the mortgage or rent on time? No 05/22/2023 Number of Places Lived in the Last Year Not on f ile 05/22/2023 In the last 12 months, was t here a time when you did not have a steady place to sleep or slept in a chcf (including now)? No 05/22/2023 Education Answer Date Recorded What is the highest level of school you have completed or the highest degree you have received? Associate degree: occupational, technical, or vocational program 07/09/2022 Sexually Active Control Partners Comments Not Currently Comments No Sex and Gender Information Value Date Recorded Sex Assigned at Not on file Legal Sex Female 8:42 PM CDT Gender Identity Not on file Sexual Orientation Not on file documented as of this encounter Functional Status * Audit-C Score Answer Date of Assessment Author 0 05/22/2023 5:26 PM CDT [facility] Background * Within the last year, have you been humiliated or emotionally abused in other ways by your partner or ex-partner? Answer Date of Assessment Author No 05/22/2023 5:26 PM CDT [facility], [facility] Background * Within the last year, have you been afraid of your partner or ex-partner? Answer Date of Assessment Author No 05/22/2023 5:26 PM CDT [facility] Background * Within the last year, have you been raped or forced to have any kind of sexual activity by your partner or ex-partner? Answer Date of Assessment Author No 05/22/2023 5:26 PM CDT [employer] Background * Within the last year, have you been kicked, hit, slapped, or otherwise physically hurt by your partner or ex-partner? Answer Date of Assessment Author No 05/22/2023 5:26 PM CDT [facility] Background * Q1: How often do you have a drink containing alcohol? Answer Date of Assessment Author Never 05/22/2023 5:26 PM CDT [facility] Background * Q2: How many drinks containing alcohol do you have on a typical day when you are drinking? Answer Date of Assessment Author Patient does not drink 05/22/2023 5:26 PM CDT My chart, System Background * Q3: How often do you have six or more drinks on one occasion? Answer Date of Assessment Author Never 05/22/2023 5:26 PM CDT Laci Miller Background * Question Answer Date of Assessment Author Little interest or pleasure in doing things Not at all 05/24/2023 10:53 AM CDT Patti Peña CMA Feeling down, depressed, or hopeless Not at all 05/24/2023 10:53 AM CDT Meli Peña CMA * Over the past 2 weeks, how often have you been bothered by any of the following problems? Question Answer Date of Assessment Author Patient Health Questionnaire -2 Score 0 05/24/2023 10:53 AM CDT Meli Peña CMA documented as of this encounter Miscellaneous Notes * Telephone Encounter - Brandy White RN - 05/22/2023 9:43 AM CDT Medication failed the protocol, provider to review and approve the medication order if appropriate. Requested Prescriptions Pending Prescriptions Disp Refills citalopram (CeleXA) 10 MG Tablet [Pharmacy Med Name: CITALOPRAM HBR 10 MG TABLET] 90 Tablet 1 Sig: TAKE 1 TABLET BY MOUTH EVERY DAY Citalopram (Celexa) (6 Month Refill Only) Protocol Failed - 05/22/2023 12:01 AM Failed - Patient has established therapy with Citalopram for at least 6 months Failed - Has an encounter in the past 6 months with a depression, anxiety, adjustment disorder, OCD, or PTSD visit diagnosis Passed - Citalopram dose is less than or equal to 40mg / day Passed - Visit with relevant provider in past 6 months or upcoming 90 days Recent Visits Date Type Provider Dept 02/22/23 Office Visit Danny Ivan MD [facility] 11/23/22 Office Visit Danny Ivan MD [facility] Showing recent visits within past 182 days and meeting all other requirements Future Appointments Date Type Provider Dept 05/24/23 Appointment Danny Ivan MD [facility] Showing future appointments within next 90 days and meeting all other requirements documented in this encounter Plan of Treatment Upcoming Encounters Date Type Department Care Team (Late st Contact Info) Description 06/10/2024 10:00 AM CDT Office Visit [facility] - Internal Medicine - [place] [address] [place] [address] Danny Ivan MD [address] [place] [address] documented as of this encounter Visit Diagnoses Not on filedocumented in this encounter Care Teams Public Health Engineer Relationship Specialty Start Date End Date Danny Ivan MD [address] [place] [address] PCP - General Internal Medicine 05/26/21 documented as of this encounter
--- OUTSIDE RECORDS SUMMARY | 2024-04-06 13:52 | XMS_ITS | Encounter Summary ---
Author Organization [facility] Address [address] [facility] [place] [address] Phone Care Team Providers Care General Education Professor Name Role Phone Danny Ivan MD Primary Care Provider [phone] Encounter Details Date Type Department Care Team (Late st Contact Info) Description 03/13/2024 Results Follow-Up [facility] - Internal Medicine - [place] [address] [place] [address] Danny Ivan MD [address] [place] [address] Social History Tobacco Use Types Packs/Day Years Used Date Smoking Tobacco: Never Passive Smoke Exposure: Never Smokeless Tobacco: Never Alcohol Use Standard Drinks/Week Comments Not Currently 0 (1 standard drink = 0.6 oz pur e alcohol) [facility] Utilities Answer Date Recorded In the past 12 months has [employer], gas, oil, or water [employer] threatened to shut off services in your home? No 03/10/2024 Social Connection and Isolat ion Panel [NHANES] Answer Date Recorded In a typical week, how many times do you talk on the phone with family, friends, or neighbors? More than three times a week 03/10/2024 How often do you get togethe r with friends or relatives? Once a week 03/10/2024 How often do you attend chur ch or yazidi services? Never 03/10/2024 Do you belong to any clubs o r organizations such as samaritan groups, unions, fraternal or athletic groups, or school groups? Yes 03/10/2024 How often do you attend meet ings of the clubs or organizations you belong to? 1 to 4 times per year 03/10/2024 Are you , , di vorced, , never , or living with a partner? 03/10/2024 AUDIT-C Answer Date Recorded Q1: How often do you have a drink containing alc ohol? Monthly or less 03/10/2024 Q2: How many drinks containi ng alcohol do you have on a typical day when you are drinking? 1 or 2 03/10/2024 Q3: How often do you have si x or more drinks on one occasion? Never 03/10/2024 Overall Financial Resource Strain (CARDIA) Answe r Date Recorded How hard is it for you to pa y for the very basics like food, housing, medical care, and heating? Not hard at all 03/10/2024 PHQ-2 Answer Date Recorded Total Score - Questions 1-9 0 09/2024 [facility] of Occupat ional [facility] - Occupational Stress Questionnaire Answer Date Recorded Do you feel stress - tense, restless, nervous, or anxious, or unable to sleep at night because your mind is troubled all the time - these days? Not at all 03/10/2024 Exercise Vital Sign Answer Date Recorde d On average, how many days pe r week do you engage in moderate to strenuous exercise (like a brisk walk)? 3 days 03/10/2024 On average, how many minutes do you engage in exercise at this level? 20 min 03/10/2024 Hunger Vital Sign Answer Date Recorded Within the past 12 months, y ou worried that your food would run out before you got the money to buy more. Never true 03/10/19 25 Within the past 12 months, t he food you bought just didn't last and you didn't have money to get more. Never true 03/10/2024 PRAPARE - Transportation Answer Date Re corded In the past 12 months, has l ack of transportation kept you from medical appointments or from getting medications? No 07/2024 In the past 12 months, has l ack of transportation kept you from meetings, work, or from getting things needed for daily living? No 03/10/2024 Housing Stability Vital Sign Answer Travis e [...] place to sleep or slept in a alf (including now)? No 05/22/2023 Housing Stability Vital Sign Answer Travis e Recorded In the last 12 months, was t here a time when you were not able to pay the mortgage or rent on time? No 03/10/2024 Number of Times Moved in the Last Year Not on fi le 03/10/2024 At any time in the past 12 m ont, were you homeless or living in a alf (including now)? No 03/10/2024 Education Answer Date Recorded What is the [...] on file documented as of this encounter Plan of Treatment Upcoming Encounters Date Type Department Care Team (Late st Contact Info) Description 06/10/2024 10:00 AM CDT Office Visit [facility] - Internal Medicine [place] [address] [place] [address] Danny Ivan MD [address] [place] [address] documented as of this encounter Visit Diagnoses Not on filedocumented in this encounter Additional Health Concerns Assessment Noted Time PHQ-9 Depression Total Score: 0 03/12/19 25 10:14 AM [employer] documented as of this encounter Care Teams General Education Professor Relationship Specialty Start Date End Date Danny Ivan MD [address] [place] [address] PCP - General Internal Medicine 05/26/21 documented as of this encounter
--- OUTSIDE RECORDS SUMMARY | 2024-04-06 13:52 | XMS_ITS | Encounter Summary ---
Author Organization [facility] Address [address] [facility] [place] [address] Phone Care Team Providers Care Pathology Secretary Name Role Phone Danny Ivan MD Primary Care Provider [phone] Reason for Visit * Reason Comments Medication Refill Encounter Details Date Type Department Care Team (Late st Contact Info) Description 08/22/2023 Refill [facility] - Internal Medicine - [place] [address] [place] [address] Danny Ivan MD [address] [facility] [place] [address] Medication Refill Social History Tobacco Use Types Packs/Day Years Used Date Smoking Tobacco: Never Passive Smoke Exposure: Never Smokeless Tobacco: Never Alcohol Use Standard Drinks/Week Comments Not Currently 0 (1 standard drink = 0.6 oz pur e alcohol) [facility] Utilities Answer Date Recorded In the past 12 months has [employer] [facility] [employer] gas, oil, or water [employer] threatened to shut off services in your home? No 05/22/2023 Social Connection and Isolation Panel [NHANES] A nswer Date Recorded In a typical week, how many times do you talk on the phone with family, friends, or neighbors? Patient declined 05/22/2023 How often do you get togethe r with friends or relatives? Patient declined 05/22/2023 How often do you attend anglican or mormonism serv ices? Patient declined 05/22/2023 Do you belong to any clubs o r organizations such as anglican groups, unions, fraternal or athletic groups, or [...] Total Score - Questions 1-9 0 05/05 [facility] of Occupat ional [facility] - Occupational Stress Questionnaire Answer Date [...] place to sleep or slept in a usp (including now)? No 05/22/2023 Education Answer Date [...] Telephone Encounter - Brandy White RN - 08/22/2023 10:13 AM CDT Medication failed the protocol, provider to review and approve the medication order if appropriate. Requested Prescriptions Pending Prescriptions Disp Refills furosemide (LASIX) 20 MG Tablet [Pharmacy Med Name: FUROSEMIDE 20MG TABS] 90 Tablet 1 Sig: Take 1 Tablet by mouth daily. Diuretics Protocol Failed - 08/22/2023 9:58 AM Failed - Serum potassium on record in past 12 months No results found for: POTASSIUM , POCTK Failed - Serum sodium on record in past 12 months No results found for: SODIUM Failed - GFR on record in past 12 months No results found for: GFRNA Passed - Blood pressure on record in past 12 months Clinician-entered: BP Readings from Last 3 Encounters: 05/24/23 138/68 02/22/23 124/58 11/23/22 (!) 128/98 Patient-entered: No data recorded Passed - Visit with relevant provider in past 12 months or upcoming 90 days Recent Visits Date Type Provider Dept 05/24/23 Office Visit Danny Ivan MD [facility] 02/22/23 Office Visit Danny Ivan MD [facility] 11/23/22 Office Visit Danny Ivan MD [facility] Showing recent visits within past 365 days and meeting all other requirements Future Appointments Date Type Provider Dept 09/05/23 Appointment [facility] [place] Showing future appointments within next 90 days and meeting all other requirements documented in this encounter Plan of Treatment Upcoming Encounters Date Type Department Care Team (Late st Contact Info) Description 06/10/2024 10:00 AM CDT Office Visit [facility] - Internal Medicine - [place] [address] [place] [address] Danny Ivan MD [address] [place] [address] documented as of this encounter Visit Diagnoses Not on filedocumented in this encounter Additional Health Concerns Assessment Noted Time PHQ-9 Depression Total Score: 0 05/24/19 10:53 AM CDT documented as of this encounter Care Teams Pathology Secretary Relationship Specialty Start Date End Date Danny Ivan MD [address] [place] [address] PCP - General Internal Medicine 05/26/21 documented as of this encounter
--- OUTSIDE RECORDS SUMMARY | 2024-04-06 13:52 | XMS_ITS | Encounter Summary ---
Author Organization [facility] Address [address] [place] [address] Phone Care Team Providers Care Game And Fish Protector Name Role Phone Danny Ivan MD Primary Care Provider [phone] Reason for Visit * Reason Comments Medication Refill Encounter Details Date Type Department Care Team (Late st Contact Info) Description 07/28/2023 Refill [facility] - Internal Medicine - [place] [address] [place] [address] Danny Ivan MD [address] [facility] [address] Medication Refill Social History Tobacco Use Types Packs/Day Years Used Date Smoking Tobacco: Never Passive Smoke Exposure: Never Smokeless Tobacco: Never Alcohol Use Standard Drinks/Week Comments Not Currently 0 (1 standard drink = 0.6 oz pur e alcohol) [facility] Utilities Answer Date Recorded In the past 12 months has [employer] gas, oil, or water [employer] threatened to shut off services in your home? No 05/22/2023 Social Connection and Isolation Panel [NHANES] A nswer Date Recorded In a typical week, how many times do you talk on the phone with family, friends, or neighbors? Patient declined 05/22/2023 How often do you get togethe r with friends or relatives? Patient declined 05/22/2023 How often do you attend yarsani or restoration serv ices? Patient declined 05/22/2023 Do you belong to any clubs o r organizations such as yarsani groups, unions, fraternal or athletic groups, or [...] Total Score - Questions 1-9 0 05/05 [facility] of Occupat ional [facility] - Occupational Stress Questionnaire Answer Date [...] place to sleep or slept in a residential (including now)? No 05/22/2023 Education Answer Date [...] Telephone Encounter - Brandy White RN - 07/28/2023 10:45 AM CDT Medication failed the protocol, provider to review and approve the medication order if appropriate. Requested Prescriptions Pending Prescriptions Disp Refills cyclobenzaprine (FLEXERIL) 10 MG Tablet [Pharmacy Med Name: CYCLOBENZAPRINE 10 MG TABLET] 42 Tablet0 Sig: TAKE 1 TABLET BY MOUTH EVERY 8 HOURS NEEDED FOR MUSCLE SPASM Not Delegated - Muscle Relaxants Protocol Failed - 07/28/2023 9:55 AM Failed - This refill cannot be delegated Failed - Not delegated, patient not between 1 and 65 years of age Passed - Visit with relevant provider in past 12 months or upcoming 90 days Recent Visits Date Type Provider Dept 05/24/23 Office Visit Danny Ivan MD [facility] 02/22/23 Office Visit Danny Ivan MD [facility] 11/23/22 Office Visit Danny Ivan MD [facility] Showing recent visits within past 365 days and meeting all other requirements Future Appointments Date Type Provider Dept 09/05/23 Appointment Danny Ivan MD [facility] Showing future appointments within next 90 days and meeting all other requirements documented in this encounter Plan of Treatment Upcoming Encounters Date Type Department Care Team (Late st Contact Info) Description 06/10/2024 10:00 AM CDT Office Visit [facility] - Internal Medicine [place] [address] [place] [address] Danny Ivan MD [address] [place] [address] documented as of this encounter Visit Diagnoses Not on filedocumented in this encounter Additional Health Concerns Assessment Noted Time PHQ-9 Depression Total Score: 0 05/24/19 10:53 AM CDT documented as of this encounter Care Teams Game And Fish Protector Relationship Specialty Start Date End Date Danny Ivan MD [address] [place] [address] PCP - General Internal Medicine 05/26/21 documented as of this encounter
--- OUTSIDE RECORDS SUMMARY | 2024-04-06 13:52 | XMS_ITS | Clinical Summary ---
Author Organization [facility] Address [address] [address] Phone Care Team Providers Care Casting Operator Helper Name Role Phone Danny Ivan MD Primary Care Provider Allergies Active Allergy Reactions Criticality Noted Date Comments Atorvastatin Other (see Comments) 06/14/2021 Hyperglycemia Glimepiride Hives 06/18/2021 Glipizide Other (see Comments) 06/14/2021 weakness Metformin Nausea 09/05/2023 Nsaids Other (see Comments) 06/14/2021 BP elevation with Meloxicam/ Oral Diclofenac Medications Assure Comfort Lancets 28G Misc USE ONE LANCET TWICE A DAY DIRECTED 100 Each 10/19/19 23 Active Glucose Blood (Prodigy No Coding Blood Gluc) Strip Use as directed 100 Strip 10/19/19 23 Active ciclopirox (PENLAC) 8 % Solution Apply to affected nails once a day as directed 6.6 mL 5 09/05/19 24 Active triamcinolone (KENALOG) 0.1 % Ointment Apply 2 times daily. 10/18/19 24 Active allopurinol (ZYLOPRIM) 100 MG Tablet Take 1 Tablet by mouth daily. 90 Tablet 1 01/23/20 24 Active atenolol (TENORMIN) 25 MG Tablet Take 1 Tablet by mouth daily. 90 Tablet 1 01/23/20 24 Active citalopram (CeleXA) 20 MG Tablet Take 1 Tablet by mouth daily. 90 Tablet 1 01/23/20 24 Active furosemide (LASIX) 20 MG Tablet Take 1 Tablet by mouth daily. 90 Tablet 1 01/23/20 24 Active hydrOXYzine (ATARAX) 25 MG Tablet Take 1 Tablet by mouth nightly as needed for Anxiety. 90 Tablet 01/23/20 24 Active cephALEXin (KEFLEX) 500 MG Capsule Take 500 mg by mouth 3 times daily. 03/08/19 25 Active mupirocin (BACTROBAN) 2 % Ointment Apply 2 times daily. 03/08/19 25 Active cyclobenzapri ne (FLEXERIL) 10 MG Tablet Take 1 Tablet by mouth 3 times daily as needed for Muscle spasms. 42 Tablet 03/12/19 25 Active Tirzepatide (Mounjaro) 12.5 MG/0.5ML Solution Auto-injector 12.5 mg by Subcutaneous route once a week. 2 mL 5 03/12/19 25 Active cyclobenzapri ne (FLEXERIL) 10 MG Tablet TAKE 1 TABLET BY MOUTH EVERY 8 HOURS NEEDED FOR MUSCLE SPASMS 42 Tablet 02/07/20 24 025 Discontinued(R eorder) Tirzepatide (Mounjaro) 10 MG/0.5ML Solution Auto-injector 10 mg by Subcutaneous route once a week. 2 mL 5 02/29/20 24 025 Discontinued(D ose adjustment) Tirzepatide (Mounjaro) 12.5 MG/0.5ML Solution Auto-injector 12.5 mg by Subcutaneous route once a week. 2 mL 5 03/12/19 25 025 Discontinued Active Problems Problem Noted Date Diagnosed Date History of colon polyps 03/12/2024 Generalized anxiety disorder 05/24/2023 Chronic pain of left ankle 05/24/2023 Nodule of left lung 02/22/2023 Onychomadesis of toenail 07/14/2022 Hyperuricemia 07/14/2022 Type 2 diabetes mellitus wit hout complication, without long-term current use of insulin 10/06/2021 Essential hypertension, benign 10/06/2021 Mixed hyperlipidemia 10/06/2021 Osteoarthritis, generalized 10/06/2021 Resolved Problems Problem Noted Date Diagnosed Date Resolved Date Transaminasemia 10/06/2021 09/05/2023 Encounters Date Type Department Care Team Description 03/18/2024 Telephone [facility] [place] [address] [place] [address] Danny Ivan MD Prior Authorization 03/13/2024 Results Follow-Up [facility] [address] [place] [address] Danny Ivan MD 03/12/2024 10:00 AM SUPERVISOR REMELT Office Visit [address] [facility] [place] [address] Danny Ivan MD Type 2 diabetes mellitus without complication, without long-term current use of insulin (HCC) (Primary Dx); Essential hypertension, benign; Mixed hyperlipidemia; Skin ulcer of upper arm, limited to breakdown of skin (HCC); History of colon polyps Discharge Disposition: Discharged to home or Selfcare 03/10/2024 Travel 02/27/2024 Refill [facility] [address] [place] [address] Kimmy Cameron, PAC Medication Refill 02/06/[address] [place] [address] Kimmy Cameron, PAC Medication Refill 01/23/[address] [place] [address] Danny Ivan MD from Last 3 Months Immunizations Immunization Administration Dates Next Due Pneumococcal conjugate PCV20 , polysaccharide [id number] conjugate, adjuvant, PF 10/06/2021 Family History Medical History Relation Name Comments No Known Problems Brother Relation Name Status Comments Brother Alive Father Mother Sister Social History Tobacco Use Types Packs/Day Years Used Date Smoking Tobacco: Never Passive Smoke Exposure: Never Smokeless Tobacco: Never Tobacco Cessation:Counseling Given: No Alcohol Use Standard Drinks/Week Comments Not Currently 0 (1 standard drink = 0.6 oz pur e alcohol) [facility] Utilities Answer Date Recorded In the past 12 months has e electric, gas, oil, or water company threatened to shut off services in your [...] often do you attend chur ch or sikh services? Never 03/10/2024 Do you belong to any clubs o r organizations such as evangelical groups, unions, fraternal or athletic groups, or [...] Total Score - Questions 1-9 0 09/2024 [facility] Occup[facility] ional Health - Occupational Stress Questionnaire Answer Date Recorded [...] place to sleep or slept in a halfway (including now)? No 05/22/2023 Housing Stability Vital Sign Answer Travis e Recorded In the last 12 months, was t here a time when you were not able to pay the mortgage or rent on time? No 03/10/2024 Number of Times Moved in the Last Year Not on fi le 03/10/2024 At any time in the past 12 m [facility], were you homeless or living in a halfway (including now)? No 03/10/2024 Education Answer Date [...] on file Sexual Orientation Not on file Last Filed Vital Signs Vital Sign Reading Time Taken Comments Blood Pressure 128/72 03/12/2024 10:11 AM SUPERVISOR REMELT Pulse 94 03/12/2024 10:11 AM SUPERVISOR REMELT Temperature 36.7 ??C (98 ??F) 03/12/2024 10:11 AM SUPERVISOR REMELT Respiratory Rate 12 12/07/2023 10:19 AM CDT Oxygen Saturation 98% 03/12/2024 10:11 AM SUPERVISOR REMELT Inhaled Oxygen Concentration - - Weight 107 kg (236 lb) 03/12/2024 10:11 AM SUPERVISOR REMELT Height 170.2 cm (5' 7 ) 03/12/2024 10:11 AM SUPERVISOR REMELT Body Mass Index 36.96 03/12/2024 10:11 AM SUPERVISOR REMELT Plan of Treatment Upcoming Encounters Date Type Department Care Team (Late st Contact Info) Description 06/10/2024 10:00 AM CDT Office Visit [facility] [place] [address] [place] [address] Danny Ivan MD [address] [place] [address] Health Maintenance Due Date Last Done Comments DEXA Bone Density 1955 Hepatitis C Virus (HCV) Screening 1955 Cologuard 2006 Immunochemical Fecal Occult Blood 2006 Zoster Immunization (1 of 2) 2006 Diabetes: Foot Exam 07/15/2023 07/14/2022 SARS-COV-2 Immunization ( season) 2023 02/19/2021, 01/29/2021 Diabetes: Eye Exam 12/16/2023 12/15/2022, 12/12/2022 Colonoscopy 01/21/2024 Colorectal Cancer Screening 01/21/2024 Diabetes: Hemoglobin A1c 09/05/2024 025, 12/07/2023, 09/05/2023, Additional history exists Mammogram 12/21/2024 12/21/2022, 04/19/2021 Diabetes: Nephropathy Screening 03/08/2025 03/08/2024, 02/21/2023, 11/05/2022, Additional history exists Respiratory Syncytial Virus (RSV) Immunization (Adult) (1 - 1-dose 75+ series) 07/23/2031 TdaP Immunization Completed 11/19/2014 DTaP/Tdap/Td Immunization Discontinued 11/22/2014, Pneumococcal Immunization (50+ years) Completed 10/06/2021 Pneumococcal Immunization Combined Discontinued 10/06/2021 Hepatitis B Immunization Aged Out No longer eligible based on patient's age to complete this topic Influenza Immunization Discontinued Meningococcal Immunization (ACWY) Aged Out No longer eligible based on patient's age to complete this topic Rotavirus Immunization Aged Out No lo nger eligible based on patient's age to complete this topic Procedures Procedure Name Priority Date/Time Associated Diagnosis Comments VITAMIN B12 Routine 03/09/2024 Mixed hyperlipidemia THYROXINE (T4) FREE Routine 03/08/2024 Chronic fatigue THYROID STIMULATING HORMONE (TSH) Routine 03/08/2024 Chronic fatigue COMPLETE BLOOD COUNT (CBC) WITH DIFF Routine 03/08/2024 Chronic fatigue HEMOGLOBIN A1C W/ ESTIMATED GLUCOSE Routine 03/08/2024 Type 2 diabetes mellitus without complication, without long-term current use of insulin (HCC) CMP (COMPREHENSIVE METABOLIC PANEL) Routine 03/08/2024 Type 2 diabetes mellitus without complication, without long-term current use of insulin (HCC) Mixed hyperlipidemia LIPID PANEL Routine 03/08/2024 Type 2 diabetes mellitus without complication, without long-term current use of insulin (HCC) Mixed hyperlipidemia LATISHA SCREENING BILATERAL DIGITAL W CAD W SHERI Routine 12/21/2022 1:25 PM CDT Encounter for screening mammogram for malignant neoplasm of breast HM DILATED EYE EXAM 12/15/2022 1 2:00 AM CDT from Last 3 Months or Most Recently Relevant to Health Maintenance Results * VITAMIN B12 (03/09/2024) Blood 03/09/2024 us Danny vIan MD CHEMISTRY ORDERABLES Final Result SCAN * HEMOGLOBIN A1C W/ ESTIMATED GLUCOSE (03/08/2024) HGB-A1C 7.5 SCAN Blood 03/08/2024 Result [facility] us Danny Ivan MD CHEMISTRY ORDERABLES Final Result Performing Organization Address City/[facility]/ZIP Co de Phone Number SCAN * THYROXINE (T4) FREE (03/08/2024) Blood 03/08/2024 Result [facility] us Danny Ivan MD CHEMISTRY ORDERABLES Final Result Performing Organization Address City/[facility] Co de Phone Number SCAN * THYROID STIMULATING HORMONE (TSH) (03/08/2024) Blood 03/08/2024 Result [facility] us Danny Ivan MD CHEMISTRY ORDERABLES Final Result Performing Organization Address [facility] Co de Phone Number SCAN * LIPID PANEL (03/08/2024) CHOLESTEROL 214 SCAN HDL CHOLESTEROL 40 SCAN LDL 138 SCAN Blood 03/08/2024 Result Hadley Ivan MD CHEMISTRY ORDERABLES Final Result Performing Organization Address [facility] Co de Phone Number SCAN * CMP (COMPREHENSIVE METABOLIC PANEL) (03/08/2024) Blood 03/08/2024 Result [facility] us Danny Ivan MD CHEMISTRY ORDERABLES Final Result Performing Organization Address City/State/[facility] Co de Phone Number SCAN * COMPLETE BLOOD COUNT (CBC) WITH DIFF (03/08/2024) Blood 03/08/2024 Result Hadley Ivan MD HEMATOLOGY ORDERABLES Final Result Performing Organization Address City/[facility]/ZIP Co de Phone Number SCAN * LATISHA SCREENING BILATERAL DIGITAL W CAD W SHERI (12/21/2022 1:25 PM CDT) Anatomical Region Laterality Modality breast Bilateral Mammography 12/21/2022 1:52 PM CDT Narrative 12/30/2022 7:54 AM CDT - LATISHA SCREENING BILATERAL DIGITAL W CAD W SHERI BILATERAL DIGITAL SCREENING MAMMOGRAM 3D/2D WITH CAD WITH MEDIOLATERAL OBLIQUE CRANIOCAUDAL: 12/21/2022 The study was acquired using digital technology and interpreted from soft copy. Current study was also evaluated with ICAD version 7.2. 2D digital mammographic views, as well as 3D digital tomosynthesis were performed in the CC and MLO projections. ?? CLINICAL: Routine screening. Patient has no complaints. No personal history of cancer. Sister and maternal aunt with breast cancer. ?? COMPARISONS: Comparison is made to exams dated: ??12/06/2018, 05/03/2021, and 05/14/2021 [facility]. ?? BREAST TISSUE:There are scattered fibroglandular densities in both breasts. ?? FINDINGS: No significant masses, calcifications, or other findings are seen in either breast. ?? There has been no significant interval change. IMPRESSION: BI-RAD 1 NEGATIVE There is no mammographic evidence of malignancy. A 1 year screening mammogram is recommended. ?? A letter will be sent to the patient with these results. The patient will be entered into a reminder system with a target due date of 1 year for her next screening exam. Electronically signed by: Sam Maciel M.D. ? denver/penmarlen:12/29/2022 23:02:35 ?? Carpenter Railcar(s): Nilam ?? RT Stephen(Stephanie)(M), [facility] letter sent: Normal Exam ?? Reading location: [facility] BI-RADS: 1 Negative Procedure Note Sam Maciel MD - 12/30/2022 - LATISAH SCREENING BILATERAL DIGITAL W CAD W SHERI BILATERAL DIGITAL SCREENING MAMMOGRAM 3D/2D WITH CAD WITH MEDIOLATERAL OBLIQUE CRANIOCAUDAL: 12/21/2022 The study was acquired using digital technology and interpreted from soft copy. Current study was also evaluated with ICAD version 7.2. 2D digital mammographic views, as well as 3D digital tomosynthesis were performed in the CC and MLO projections. CLINICAL: Routine screening. Patient has no complaints. No personal history of cancer. Sister and maternal aunt with breast cancer. COMPARISONS: Comparison is made to exams dated: 12/06/2018, 05/03/2021, and 05/14/2021 [facility]. BREAST TISSUE:There are scattered fibroglandular densities in both breasts. FINDINGS: No significant masses, calcifications, or other findings are seen in either breast. There has been no significant interval change. IMPRESSION: BI-RAD 1 NEGATIVE There is no mammographic evidence of malignancy. A 1 year screening mammogram is recommended. A letter will be sent to the patient with these results. The patient will be entered into a reminder system with a target due date of 1 year for her next screening exam. Electronically signed by: Sam goff/prabhu:12/29/2022 23:02:35 Carpenter Railcar(s): RT Marixa(R)(M), [facility] letter sent: Normal Exam Reading location: [place] BI-RADS: 1 Negative Kimmy Cameron PAC IMG MAMMO ORDERAB LES Final Result * DILATED EYE EXAM (12/15/2022 12:00 AM CDT) 12/15/2022 us Provider Scan PROCEDURE/MINOR SURGICAL ORDERAB LES Final Result SCAN from Last 3 Months or Most Recently Relevant to Health Maintenance Insurance MEDICARE Care Teams Casting Operator Helper Relationship Specialty Start Date End Date Danny Ivan MD [address] [place] [address] PCP - General Internal Medicine 05/26/21
--- OUTSIDE RECORDS SUMMARY | 2024-04-06 13:52 | XMS_ITS | Encounter Summary ---
Author Organization [facility] Address [address] [place] [address] Phone Care Team Providers Care Airport Electrician Name Role Phone Danny Ivan MD Primary Care Provider [phone] Reason for Visit * Reason Comments Medication Refill Encounter Details Date Type Department Care Team (Late st Contact Info) Description 07/03/2022 Refill [facility] [place] [address] [place] [address] Danny Ivan MD [address] [place] [address] Medication Refill Social History Tobacco [...] Telephone Encounter - Brandy White RN - 07/04/2022 8:12 AM CDT Medication failed the protocol, provider to review and approve the medication order if appropriate. Requested Prescriptions Pending Prescriptions Disp Refills allopurinol (ZYLOPRIM) 100 MG Tablet [Pharmacy Med Name: ALLOPURINOL TABS 100MG] 90 Tablet 3 Sig: TAKE 1 TABLET DAILY Gout Agents Protocol Failed - 07/03/2022 11:39 PM Failed - Uric acid on record in past 12 months No results found for: URIC Failed - Serum creatinine on record in past 12 months No results found for: CREATININE Passed - Visit with relevant provider in past 12 months or upcoming 90 days Recent Visits Date Type Provider Dept 04/14/22 Office Visit Danny Ivan MD [facility] [place] 01/26/22 Office Visit Danny Ivan MD [facility] [place] 01/06/22 Office Visit Danny Ivan MD [facility] [place] 10/06/21 Office Visit Danny Ivan MD [facility] [place] [place] 07/08/21 Office Visit Kimmy Cameron PAC [facility] [place] Showing recent visits within past 365 days and meeting all other requirements Future Appointments Date Type Provider Dept 07/14/22 Appointment Danny Ivan MD [facility] [place] [place] Showing future appointments within next 90 days and meeting all other requirements furosemide (LASIX) 20 MG Tablet [Pharmacy Med Name: FUROSEMIDE TABS 20MG] 90 Tablet 3 Sig: TAKE 1 TABLET DAILY Diuretics Protocol Failed - 07/03/2022 11:39 PM Failed - Serum potassium on record in past 12 months No results found for: POTASSIUM, POCTK Failed - Serum sodium on record in past 12 months No results found for: SODIUM Failed - GFR on record in past 12 months No results found for: GFRNA Passed - Blood pressure on record in past 12 months Clinician-entered: BP Readings from Last 3 Encounters: 04/14/22 136/78 01/26/22 142/70 01/06/22 138/66 Patient-entered: No data recorded Passed - Visit with relevant provider in past 12 months or upcoming 90 days Recent Visits Date Type Provider Dept 04/14/22 Office Visit Danny Ivan MD [facility] 01/26/22 Office Visit Danny Ivan MD [facility] [place] 01/06/22 Office Visit Danny Ivan MD [facility] [place] [place] 10/06/21 Office Visit Danny Ivan MD [facility] [place] 07/08/21 Office [facility] Cameron [facility] [place] Showing recent visits within past 365 days and meeting all other requirements Future Appointments Date Type Provider Dept 07/14/22 Appointment Danny Ivan MD [facility] Showing future appointments within next 90 days and meeting all other requirements documented in this encounter Plan of Treatment Upcoming Encounters Date Type Department Care Team (Late st Contact Info) Description 06/10/2024 10:00 AM CDT Office Visit [facility] [place] [address] [place] [address] Danny Ivan MD [address] [place] [address] documented as of this encounter Visit Diagnoses Not on filedocumented in this encounter Care Teams Airport Electrician Relationship Specialty Start Date End Date Danny Ivan MD [address] [place] [address] PCP - General Internal Medicine 05/26/21 documented as of this encounter
--- OUTSIDE RECORDS SUMMARY | 2024-04-06 13:52 | XMS_ITS | Encounter Summary ---
Author Organization [facility] Address [address] [place] [address] Phone Care Team Providers Care Paint Line Supervisor Name Role Phone Danny Ivan MD Primary Care Provider [phone] Reason for Visit * Reason Comments Medication Refill Encounter Details Date Type Department Care Team (Late st Contact Info) Description 08/22/2023 Refill [facility] [place] [address] [place] [id number] Kimmy Cameron, [facility] [address] [place] [address] Medication Refill Social History Tobacco Use Types Packs/Day Years Used Date Smoking Tobacco: Never Passive Smoke Exposure: Never Smokeless Tobacco: Never Alcohol Use Standard Drinks/Week Comments Not Currently 0 (1 standard drink = 0.6 oz pur e alcohol) [facility] Utilities Answer Date Recorded In the past 12 months has [employer], gas, oil, or water [employer] threatened to shut off services in your home? No 05/22/2023 Social Connection and Isolation Panel [NHANES] A nswer Date Recorded In a typical week, how many times do you talk on the phone with family, friends, or neighbors? Patient declined 05/22/2023 How often do you get togethe r with friends or relatives? Patient declined 05/22/2023 How often do you attend adventist or jewish serv ices? Patient declined 05/22/2023 Do you belong to any clubs o r organizations such as adventist groups, unions, fraternal or athletic groups, or [...] Total Score - Questions 1-9 0 05/05 [facility] of Occupat ional Health - Occupational Stress [...] place to sleep or slept in a senior living (including now)? No 05/22/2023 Education Answer Date [...] Encounter - Brandy White RN - 08/22/2023 11:46 AM CDT Medication failed the protocol, provider to review and approve the medication order if appropriate. Requested Prescriptions Pending Prescriptions Disp Refills metFORMIN (GLUCOPHAGE) 1000 MG Tablet [Pharmacy Med Name: METFORMIN HCL 1000MG TABS] 180 Tablet 0 Sig: TAKE 1 TABLET TWICE A DAY WITH MEALS Biguanides Protocol Failed - 08/22/2023 9:58 AM Failed - Active on medication list Failed - GFR on record in past 6 months No results found for: GFRNA Passed - Visit with relevant provider in past 6 months or upcoming 90 days Recent Visits Date Type Provider Dept 05/24/23 Office Visit Danny Ivan MD [facility] 02/22/23 Office Visit Danny Ivan MD [facility] Showing recent visits within past 182 days and meeting all other requirements Future Appointments Date Type Provider Dept 09/05/23 Appointment Danny Ivan MD [facility] Showing future appointments within next 90 days and meeting all other requirements Passed - HgA1C on record in past 6 months HGB-A1C Date Value Ref Range Status 05/24/2023 7.5 (A) 4 - 6 % Final documented in this encounter Plan of Treatment Upcoming Encounters Date Type Department Care Team (Late st Contact Info) Description 06/10/2024 10:00 AM CDT Office Visit [facility] [place] [address] [place] [address] Danny Ivan MD [address] [place] [address] documented as of this encounter Visit Diagnoses Not on filedocumented in this encounter Additional Health Concerns Assessment Noted Time PHQ-9 Depression Total Score: 0 05/24/19 24 10:53 AM CDT documented as of this encounter Care Teams Paint Line Supervisor Relationship Specialty Start Date End Date Danny Ivan MD [address] [place] [address] PCP - General Internal Medicine 05/26/21 documented as of this encounter
--- OUTSIDE RECORDS SUMMARY | 2024-04-06 13:53 | XMS_ITS | Clinical Summary ---
Author Organization [facility] Address [address] [place] [address] Care Team Providers Care Seo Strategist Name Role Phone Radha Padron MD Primary Care Provider [phone] Source Comments [facility],non-owned Affiliates and Associated Physician Practices is amultiple site organization consisting of ambulatory clinics and hospital sitesin [place], [place], [place] and [place]. This disclosure is being madepursuant to the Care Everywhere program and may not contain all information available regarding this patient. Last updated 17.[facility] [employer] Social History Tobacco Use Types Packs/Day Years Used Date Smoking Tobacco: Never Assessed Sex and Gender Information Value Date Recorded Sex Assigned at Not on file Gender Identity Not on file Sexual Orientation Not on file Plan of Treatment Health Maintenance Due Date Last Done Comments BONE DENSITY TESTING 1955 COLOGUARD (AGES 45-75) - COL ON CA SCREENING 1955 COLON MONITORING 1956 COLONOSCOPY - COLON CA SCREENING 1956 CT COLONOGRAPHY - COLON CA SCREENING 1955 Colorectal Cancer Screening 1955 FIT - COLON CA SCREENING 1955 FLEX SIG - COLON CA SCREENING 1955 LIPID TESTING 1955 MAMMOGRAM 1955 HEPATITIS C SCREENING 07/18/1974 DTAP/TDAP/TD VACCINES (1 - Tdap) 07/23/1975 PNEUMOCOCCAL VACCINE 50+ (1 of 1 - PCV) 2006 ZOSTER VACCINE (1 of 2) 2006 COVID-19 VACCINE ( - 2023-2 5 season) 2023 INFLUENZA VACCINE (#1) 2023 DEPRESSION SCREENING 03/06/2024 Respiratory Syncytial Virus (RSV) Vaccine Pt: or over 60 yrs (1 - 1-dose 75+ series) 07/23/2031 HEPATITIS B VACCINE Aged Out No longe r eligible based on patient's age to complete this topic HIB VACCINE Aged Out No longer eligi ble based on patient's age to complete this topic HPV VACCINE Aged Out No longer eligi ble based on patient's age to complete this topic MENINGOCOCCAL (Group B) VACCINE Aged Out No longer eligible based on patient's age to complete this topic MENINGOCOCCAL VACCINE Aged Out No mark se eligible based on patient's age to complete this topic Care Teams Seo Strategist Relationship Specialty [place] [id number] [address] PCP - General 04/20/08
--- OUTSIDE RECORDS SUMMARY | 2024-04-06 13:53 | XMS_ITS | Encounter Summary ---
Author Organization [employer] Address [address] [place] [address] Care Team Providers Care Rod Filler Name Role Phone Unavailable Primary Care Provider Unavailabl e Encounter Details Date Type Department Care Team (Late st Contact Info) Description 04/19/2008 Outpatient Historical [facility], Authorized P NO ADDRESS ON FILE Alena Vernon MD NO ADDRESS ON FILE Unspecified Psychosis (CMS/HCC); Hypopotassemia; DM w/o Complication Type II (CMS/HCC); Unspecified Essential Hypertension; Other and Unspecified Disc Disorder of Unspecified Region; Acquired Absence of Organ, Genital Organs; Personal History of Tobacco Use, Presenting Hazards to Health Social History Tobacco Use Types Packs/Day Years Used Date Smoking Tobacco: Never Assessed Comments Unknown Sex and Gender Information Value Date Recorded Sex Assigned at Not on file Legal Sex Female 4:51 AM DROSS SKIMMER Gender Identity Not on file Sexual Orientation Not on file documented as of this encounter Plan of Treatment Not on file documented as of this encounter Procedures Procedure Name Priority Date/Time Associated Diagnosis Comments XR CHEST PA OR AP 1 VW Routine 9 7:[address] HEAD WO CONTRAST Routine 04/19/2008 6 :28 PM DROSS SKIMMER DRUG SCREEN, URINE Stat 04/19/2008 6: 05 PM DROSS SKIMMER URINALYSIS W/REFLEX MICROSCOPIC Stat 04/19/2008 6:05 PM DROSS SKIMMER TSH REFLEXIVE Stat 04/19/2008 5:35 PM DROSS SKIMMER TROPONIN (W/REFLEX CKMB/CK) Stat 04/19/2008 5:35 PM DROSS SKIMMER COMPREHENSIVE METABOLIC PANEL Stat 04/19/2008 5:35 PM DROSS SKIMMER ED HOLD Stat 04/19/2008 4:40 PM DROSS SKIMMER CBC WITH DIFFERENTIAL Stat 04/19/2008 4:40 PM DROSS SKIMMER documented in this encounter Results * XR CHEST PA OR AP (04/19/2008 7:20 PM DROSS SKIMMER) Anatomical Region Laterality Modality Chest Other 04/19/2008 7:20 PM DROSS SKIMMER Narrative 04/19/2008 7:43 PM DROSS SKIMMER ? [facility] ? [address] ?. [place], [place] ??[address] ?Admit Date: 04/19/2008 ?NGA BALDERAS ?Sex: F ?Admit Prov: ER, AUTHORIZED P ? Date: 1955 ?Primary Care Prov: ANNETTE ELLIS ? CMRN: [id number] ?Room: ER-A ? SSN: [id number] ? IMAGING SERVICES ?Ordering Prov: N/A ? Accession Number: [id number] ?Interpretation ? Exam: Portable chest. Examination April 19, 2008 at 1930 hours. ? History: Confusion. Shortness of breath. ? Heart and mediastinum are unremarkable. Lungs are clear. ? Impression: Negative portable chest. ? . ? Dictated by: ??EMMANUELLE CM ?04/19/2008 19:42 ? Electronically signed by: ??EMMANUELLE CM ?04/19/2008 19:42 Procedure Note Emmanuelle Cm - 04/19/[address] [address] Admit Date: 04/19/2008 NGA BALDERAS Sex: F Admit Prov: MANAN CERDA Date: 1955 Primary Care Prov: ANNETTE ELLIS CMRN: [id number] [facility] SSN: [id number] IMAGING SERVICES Ordering Prov: N/A Interpretation Exam: Portable chest. Examination April 19, 2008 at 1930 hours. History: Confusion. Shortness of breath. Heart and mediastinum are unremarkable. Lungs are clear. Impression: Negative portable chest. . Dictated by: EMMANUELLE CM 04/19/2008 19:42 Electronically signed by: EMMANUELLE CM 04/19/2008 19:42 us Alena Saulo MD DIAGNOSTIC IMAGING ORDERABLES Fi nal Result * CT HEAD WO CONTRAST (04/19/2008 6:28 PM DROSS SKIMMER) Anatomical Region Laterality Modality Head Other 04/19/2008 6:28 PM DROSS SKIMMER Narrative 04/19/2008 6:54 PM DROSS SKIMMER ? [facility] ? [address] ?[place], [place] ??[address] ?Admit Date: 04/19/2008 ?TRAUMA, SKYLARK ?Sex: F ?Admit Prov: ER, AUTHORIZED P ? Date: ?Primary Care Prov: PCP, UNKNOWN ?CMRN: [id number] ?Room: ER-A ? SSN: ? IMAGING SERVICES ?Ordering Prov: N/A ? Accession Number: [id number] ?Interpretation ? Exam: CT the head without contrast. ? History: Patient fell. Patient hit head. Patient with confusion. ? Technique: CT of the head was performed without intravenous contrast. ? Continuous spiral imaging was performed through the head from above the ? vertex through the skull base. Images of the brain were reconstructed in ? the axial plane at 5 mm intervals. Bone and soft tissue windows were ? reviewed. ? Findings: The brain and ventricles are within normal limits. There is no ? hemorrhage, midline shift, mass-effect, or extra-axial fluid collection. ? Review of bone windows shows no depressed or displaced skull fracture. ? There is no aggressive bone lesion of the skull. Paranasal sinuses and ? mastoid air cells are clear. ? Impression: Negative unenhanced CT of the brain. ? . ? Dictated by: ??EMMANUELLE CM ?04/19/2008 18:51 ? Electronically signed by: ??EMMANUELLE CM ?04/19/2008 18:52 Procedure Note Emmanuelle Cm - 04/19/2008 [facility] [address] [place], [place] [address] Admit Date: 04/19/2008 TRAUMA, MATTYLJULIA Sex: F Admit Prov: ER, AUTHORIZED P Date: Primary Care Prov: PCP, UNKNOWN CMRN: [id number] Room: [facility] SSN: IMAGING SERVICES Ordering Prov: N/A Interpretation Exam: CT the head without contrast. History: Patient fell. Patient hit head. Patient with confusion. Technique: CT of the head was performed without intravenouscontrast. Continuous spiral imaging was performed through the head from abovethe vertex through the skull base. Images of the brain were reconstructedin the axial plane at 5 mm intervals. Bone and soft tissue windowswere reviewed. Findings: The brain and ventricles are within normal limits. There isno hemorrhage, midline shift, mass-effect, or extra-axial fluidcollection. Review of bone windows shows no depressed or displaced skullfracture. There is no aggressive bone lesion of the skull. Paranasal sinusesand mastoid air cells are clear. Impression: Negative unenhanced CT of the brain. . Dictated by: EMMANEULLE CM 04/19/2008 18:51 Electronically signed by: EMMANUELLE CM 04/19/2008 18:52 us Alena Vernon MD CT ORDERABLES Final Result * (ABNORMAL) URINALYSIS (04/19/2008 6:05 PM DROSS SKIMMER) HYALINE CAST 1 0 - 2 /LPF [facility] LEUKOCYTE ESTERASE UA Negative Negative [facility] RBC UA 2 0 - 4 /HPF [facility] SPECIFIC GRAVITY UA 1.013 1.001 - 1.035 [facility] GLUCOSE UA Negative Negative [facility] BLOOD UA Negative Negative [facility] COLOR UA Yellow [facility] NITRITE UA Negative Negative [facility] EPITHELIAL CELLS, URINE 0-2 /HPF [facility] UROBILINOGEN UA <1 <=1 mg/dL [facility] PH UA 5.5 5.0 - 8.0 [facility] WBC UA 1 0 - 5 /HPF [facility] KETONES UA 2+(A) Negative [facility] CLARITY UA Clear Clear [facility] BILIRUBIN UA Negative Negative [facility] PROTEIN UA 1+(A) Negative [facility] Urine specimen (specimen) 04/19/2008 6:05 PM DROSS SKIMMER 04/19/2008 7:06 PM DROSS SKIMMER us Alena Vernon MD URINE ORDERABLES Final Result INTERFACE SYSTEM Refer to clinic/hospital department [facility] CLIA# [id number] [address] [place] [address] * DRUG SCREEN, URINE (04/19/2008 6:05 PM DROSS SKIMMER) COMMENT, TOXICOLOGY See Separate Comment [facility] Comment: Urine sample was not handled as a legal specimen and was received without a chain of custody. ??The result should be used only for medical purposes. False positive and erroneous results can occur due to cross-reacting substances and other factors. Depending on the clinical context, confirmation of all presumptive positive results by a more specific alternate method is recommended. ??A negative result indicates the analyte, if present, is below the screening threshold. Drug ? Ref. Range ?Screening Threshold Amphetamines ?Negative ? 1000 ng/mL Barbiturates ?Negative ?200 ng/mL Benzodiazepines ? Negative ?300 ng/mL Cannabinoids ?Negative ? 50 ng/mL Cocaine Metabolites ?? Negative ?300 ng/mL Opiates ? Negative ?300 ng/mL Phencyclidine ? Negative ? 25 ng/mL The cut-off threshold, known cross-reactive compounds, drugs,and specificity information for each of the urine drugs of abuse are available on the [facility] Intranet at: [email or web address] Select: Lab Policies & Procedures Select: Drugs of Abuse-[facility] To inquire about any potential cross-reactivity of a specific drug not listed at this site, please contact the Chemistry Lab at . AMPHETAMINE QUAL, URINE Negative Negative [facility] BARBITURATE QUAL, URINE Negative Negative [facility] BENZODIAZEPINE QUAL, URINE Negative Negative [facility] CANNABINOIDS QUAL, URINE Presumptive Positive Negative [facility] COCAINE QUAL URINE Negative Negative [facility] OPIATE QUAL, URINE Negative Negative [facility] PCP QUAL, URINE Negative Negative [facility] Urine specimen (specimen) 04/19/2008 6:05 PM DROSS SKIMMER 04/19/2008 7:06 PM DROSS SKIMMER Alena Vernon MD URINE ORDERABLES Edited Performing Organization Address City/[facility] Co de Phone Number INTERFACE SYSTEM Refer to clinic/hospital department [facility] CLIA# [id number] [address] [place] [address] * TROPONIN (W/REFLEX CKMB/CK) (04/19/2008 5:35 PM DROSS SKIMMER) TROPONIN T <0.01 <=0.03 ng/mL [facility] TROPONIN T INTERP Negative [facility] Blood specimen (specimen) 04/19/2008 5:35 PM DROSS SKIMMER 04/19/2008 5:45 PM DROSS SKIMMER Alena Vernon MD CHEMISTRY ORDERABLES Edited Performing Organization Address City/[facility]/ZIP Co de Phone Number INTERFACE SYSTEM Refer to clinic/hospital department [facility] CLIA# [id number] [address] [place] [address] * TSH REFLEXIVE (04/19/2008 5:35 PM DROSS SKIMMER) Pathologist [facility] TSH 1.17 0.27 - 4.20 uU/mL [facility] Blood specimen (specimen) 04/19/2008 5:35 PM DROSS SKIMMER 04/19/2008 5:45 PM DROSS SKIMMER us Alena Vernon MD CHEMISTRY ORDERABLES Final Resul t INTERFACE SYSTEM Refer to clinic/hospital department [facility] CLIA# [id number] [address] [place] [address] * (ABNORMAL) COMPREHENSIVE METABOLIC PANEL (04/19/2008 5:35 PM DROSS SKIMMER) Pathologist [facility] CALCIUM 10.1 8.6 - 10.2 mg/dL [facility] CHLORIDE 97 96 - 108 mmol/L [facility] ALBUMIN 5.1(H) 3.4 - 4.8 g/dL [facility] CREATININE 0.71 0.51 - 0.95 mg/dL [facility] SODIUM 137 135 - 145 mmol/L [facility] ALT 60(H) 0 - 31 U/L [facility] ALKALINE PHOSPHATASE 98 35 - 104 U/L [facility] BILIRUBIN TOTAL 0.3 0.2 - 1.0 mg/dL [facility] CO2 23 22 - 30 mmol/L [facility] TOTAL PROTEIN 8.6 6.3 - 8.6 g/dL [facility] POTASSIUM 3.0(L) 3.5 - 4.9 mmol/L [facility] GLUCOSE 134(H) 65 - 99 mg/dL [facility] AST 38(H) 12 - 32 U/L [facility] BUN 12 6 - 20 mg/dL [facility] GFR, >60 >=60 mL/min/1. 7 sq meter [facility] GFR >60 >=60 mL/min/1. 7 sq meter [facility] Comment: Modification of Diet in Renal Disease (MDRD) study formula. Estimated GFR rate interpretative information for both Americans and non- Americans is available on the [facility] Intranet at: [email or web address] Select: Lab Policies and Procedures Select: Reference Ranges - GFR Blood specimen (specimen) 04/19/2008 5:35 PM DROSS SKIMMER 04/19/2008 5:45 PM DROSS SKIMMER us Alena Vernon MD CHEMISTRY ORDERABLES Edited INTERFACE SYSTEM Refer to clinic/hospital department [facility] CLIA# [id number] [address] [place] [address] * (ABNORMAL) CBC WITH DIFFERENTIAL (04/19/2008 4:40 PM DROSS SKIMMER) HEMOGLOBIN 14.8 11.8 - 14.8 g/dL [facility] RDW 14.3 11.5 - 14.5 % [facility] WBC 9.8 4.0 - 9.8 K/uL [facility] MCH 29.6 27.2 - 32.6 pg [facility] MPV 9.3 9.3 - 12.4 fL [facility] HEMATOCRIT 44.3(H) 35.5 - 44.0 % [facility] RDW-STDEV 46.2 37.1 - 48.7 fL [facility] RBC 5.00(H) 3.90 - 4.90 M/uL [facility] MCHC 33.4 31.5 - 35.5 % [facility] MCV 88.6 82.0 - 99.0 fL [facility] PLATELETS 354(H) 140 - 350 K/uL [facility] LYMPHOCYTES 20 16 - 45 % [facility] LYMPHOCYTE ABSOLUTE 1.96 0.70 - 4.50 K/uL [facility] BASOPHILS 0 0 - 2 % [facility] BASOPHILS ABSOLUTE 0.02 0.00 - 0.20 K/uL [facility] MONOCYTES 7 3 - 13 % [facility] MONOCYTE ABSOLUTE 0.68 0.10 - 1.30 K/uL [facility] NEUTROPHILS 72(H) 45 - 70 % [facility] NEUTROPHIL ABSOLUTE 7.06(H) 1.90 - 7.00 K/uL [facility] EOSINOPHILS 1 0 - 7 % [facility] EOSINOPHIL ABSOLUTE 0.05 0.00 - 0.70 K/uL [facility] Blood specimen (specimen) 04/19/2008 4:40 PM DROSS SKIMMER 04/19/2008 5:43 PM DROSS SKIMMER us Alena Vernon MD HEMATOLOGY ORDERABLES Edited Performing Organization Address City/[facility] de Phone Number INTERFACE SYSTEM Refer to clinic/hospital department [facility] CLIA# [id number] [address] [place] [address] * ED HOLD (04/19/2008 4:40 PM DROSS SKIMMER) SPECIMEN HOLD, BLOOD 7 days [facility] Specimen of unknown material (specimen) 04/19/2008 4:40 PM DROSS SKIMMER 04/19/2008 5:21 PM DROSS SKIMMER us Authorized P Er CHEMISTRY ORDERABLES Final Resul t Performing Organization Address City/[facility] de Phone Number INTERFACE SYSTEM Refer to clinic/hospital department [facility] CLIA# [id number] [address] [place] [address] documented in this encounter Visit Diagnoses Diagnosis Unspecified psychosis (CMS/HCC) Unspecified psychosis Hypopotassemia Type II or unspecified type diabetes mellitus without mention of complication, not stated as uncontrolled (CMS/HCC) Type II or unspecified type diabetes mellitus without mention of complication, not stated as uncontrolled Unspecified essential hypertension Other and unspecified disc disorder of unspecified region Acquired absence of organ, genital organs Personal history of tobacco use, presenting hazards to health documented in this encounter
--- OUTSIDE RECORDS SUMMARY | 2024-04-06 13:53 | XMS_ITS | Encounter Summary ---
Author Organization [facility] Address [address] [place] [address] Phone Care Team Providers Care Television Mechanic Name Role Phone Danny Ivan MD Primary Care Provider [phone] Reason for Visit * Reason Comments Medication Refill Encounter Details Date Type Department Care Team (Late st Contact Info) Description 09/01/2022 Refill [facility] - Internal Medicine - [place] [address] [place] [address] Danny Ivan MD [address] [facility] [place] [address] Medication Refill Social History Tobacco Use Types Packs/Day Years Used Date Smoking Tobacco: Never Passive Smoke Exposure: Never Smokeless Tobacco: Never Alcohol Use Standard Drinks/Week Comments Not Currently 0 (1 standard drink = 0.6 oz pur e alcohol) PHQ-2 Answer Date Recorded Total Score - Questions 1-9 0 06/04 Education Answer Date Recorded What is the [...] Telephone Encounter - Brandy White RN - 09/02/2022 8:51 AM CDT Medication failed the protocol, provider to review and approve the medication order if appropriate. Requested Prescriptions Pending Prescriptions Disp Refills metFORMIN (GLUCOPHAGE) 1000 MG Tablet [Pharmacy Med Name: METFORMIN HCL TABS 1000MG] 120 Tablet 5 Sig: TAKE 1 TABLET TWICE A DAY WITH MEALS Biguanides Protocol Failed - 09/01/2022 11:28 PM Failed - GFR on record in past 6 months No results found for: GFRNA Passed - Visit with relevant provider in past 6 months or upcoming 90 days Recent Visits Date Type Provider Dept 07/14/22 Office Visit Danny Ivan MD [facility] 04/14/22 Office Visit Danny Ivan MD [facility] [place] Showing recent visits within past 182 days and meeting all other requirements Future Appointments Date Type Provider Dept 10/17/22 Appointment Danny Ivan MD [facility] Showing future appointments within next 90 days and meeting all other requirements Passed - HgA1C on record in past 6 months HGB-A1C Date Value Ref Range Status 04/14/2022 8.4 (A) 4 - 6 Final documented in this encounter Plan of Treatment Upcoming Encounters Date Type Department Care Team (Late st Contact Info) Description 06/10/2024 10:00 AM CDT Office Visit [facility] [place] [address] [place] [id number] Danny Ivan MD [address] [place] [address] documented as of this encounter Visit Diagnoses Not on filedocumented in this encounter Care Teams Television Mechanic Relationship Specialty Start Date End Date Danny Ivan MD [address] [place] [address] PCP - General Internal Medicine 05/26/21 documented as of this encounter
--- OUTSIDE RECORDS SUMMARY | 2024-04-06 13:53 | XMS_ITS | Referral Summary ---
Author Organization [address] Address [address] [place] [address] Care Team Providers Care Test Analyst Name Role Phone Danny Ivan MD Primary Care Provider [phone] Allergies Active Allergy Reactions Criticality Noted Date Comments Atorvastatin Other (See comments) Low 06/14/2021 Hyperglycemia Glimepiride Hives Medium 06/18/2021 Glipizide Other (See comments) Low 06/14/2021 weakness Nsaids (Non-Steroidal Anti-Inflammatory Drug) Other (See comments) Low 06/14/2021 BP elevation with Meloxicam/ Oral Diclofenac Medications atenoloL (TENORMIN) 25 mg tablet 2 Active furosemide (LASIX) 20 mg tablet 2 Active allopurinoL (ZYLOPRIM) 100 mg tablet 2 Active blood glucose diagnostic (Prodigy No Coding) strip Prodigy No Coding strips USE ONE STRIP TWICE A DAY Active lancets (Prodigy Twist Top Lancet) 28 gauge misc Prodigy Twist Top Lancet 28 gauge USE ONE LANCET TWICE A DAY DIRECTED Active Trulicity 3 mg/0.5 mL pen injector INJECT 3MG UNDER THE SKIN ONCE WEEKLY Active ciclopirox (PENLAC) 8 % solution Apply to affected nails once a day as directed 3 Active ibuprofen (ADVIL,MOTRIN) 400 mg tablet Take 1 tablet (400 mg total) by mouth every 6 (six) hours as needed for pain 400-600 PRN Active fluticasone propionate (FLONASE) 50 mcg/actuation nasal spray Administer 2 sprays into each nostril daily Mostly only the left side Active citalopram (CeleXA) 10 mg tablet Take 1 tablet (10 mg total) by mouth daily 3 Active hydrOXYzine (ATARAX) 25 mg tablet 3 Active Mounjaro 10 mg/0.5 mL pen injector INJECT 10 MG BY SUBCUTANEOUS ROUTE ONCE A WEEK. 4 Active triamcinolone (KENALOG) 0.1 % ointment Apply topically 2 (two) times a day 4 Active mupirocin (BACTROBAN) 2 % ointment APPLY TO AFFECTED AREAS OF RIGHT LOWER LEG TWICE A DAY 4 Active cyclobenzaprine (FLEXERIL) 10 mg tablet TAKE 1 TABLET BY MOUTH EVERY 8 HOURS NEEDED FOR MUSCLE SPASM 4 Active cephalexin (KEFLEX) 500 mg capsule TAKE 1 CAPSULE BY MOUTH EVERY 8 HOURS 4 Active Active Problems Problem Noted Date Diagnosed Date Pulmonary nodule 12/18/2022 Closed fracture of ankle 08/27/2021 Diabetes mellitus 08/27/2021 Essential hypertension 08/27/2021 Fracture of lower leg 08/27/2021 Gout 08/27/2021 Hyperlipidemia 08/27/2021 Mild anxiety 08/27/2021 Obesity 08/27/2021 Other synovitis and tenosynovitis, unspecified h and 08/27/2021 Tendinitis of wrist 08/27/2021 Sleep apnea 05/21/2018 Hypertriglyceridemia 04/17/2017 Polyp of colon 04/17/2017 Immunizations Name Administration Dates Next Due Pneumococcal Conjugate Pcv20 10/06/2021 Td, adsorbed 11/22/2014 Tdap 11/19/2014 Social History Tobacco Use Types Packs/Day Years Used Date Smoking Tobacco: Never Smokeless Tobacco: Never AUDIT-C Answer Date Recorded Q1: How often do you have a drink containing alc ohol? Monthly or less 01/16/2023 Q2: How many drinks containi ng alcohol do you have on a typical day when you are drinking? 1 or 2 01/16/2023 Q3: How often do you have si x or more drinks on one occasion? Never 01/16/2023 Personal Safety Answer Date Recorded Have you ever been in or are you currently in a harmful physical or emotional relationship or is someone making you feel afraid or unsafe? Denies 01/16/2023 Comments Unknown Sex and Gender Information Value Date Recorded Sex Assigned at Not on file Legal Sex Female 12:29 AM JAVA J2EE TECHNICAL LEAD Gender Identity Not on file Sexual Orientation Not on file Last Filed Vital Signs Vital Sign Reading Time Taken Comments Blood Pressure 153/78 12/04/2023 9:33 AM CDT Pulse 78 12/04/2023 9:33 AM CDT Temperature 36.6 ??C (97.8 ??F) 12/04/2023 9:33 AM CD T Respiratory Rate 18 12/04/2023 9:33 AM CDT Oxygen Saturation 100% 12/04/2023 9:33 AM CDT Inhaled Oxygen Concentration - - Weight 107.4 kg (236 lb 12.8 oz) 12/04/2023 9:33 AM CDT Height 165.1 cm (5' 5 ) 12/04/2023 9:33 AM CDT Body Mass Index 39.41 12/04/2023 9:33 AM CDT Plan of Treatment Not on file Procedures Procedure Name Priority Date/Time Associated Diagnosis Comments CT VIRTUAL COLONOSCOPY DIAGNOSTIC WO CONTRAST Schedule Routine, Read Routine (OP Routine) 01/10/2019 10:37 AM JAVA J2EE TECHNICAL LEAD Other specified congenital malformations of intestine from Last 3 Months or Most Recently Relevant to Health Maintenance Results * CT Colonoscopy Diagnostic WO Contrast (01/10/2019 10:37 AM JAVA J2EE TECHNICAL LEAD) Anatomical Region Laterality Modality Body N/A Computed Tomogra phy 01/10/2019 1:05 PM JAVA J2EE TECHNICAL LEAD Impressions 01/10/2019 2:41 PM JAVA J2EE TECHNICAL LEAD C1: Normal colon or benign lesion, continue routine screening. E4: Potentially important finding Dictated by: Vidal Escalante IV, M.D. The radiology attending physician has personally reviewed this study, and had reviewed and/or edited this written report and agrees with it. Electronically signed by: Pramod Abad M.D. Narrative 01/10/2019 2:41 PM JAVA J2EE TECHNICAL LEAD EXAMINATION: ?? CT colonography without intravenous contrast HISTORY: Other specified congenital malformation of the intestine, redundant colon TECHNIQUE: Transaxial computed tomographic images through the abdomen and pelvis were obtained without intravenous contrast after insufflation of the colon with CO2 through a rectal catheter. Images were obtained in the supine and right lateral decubitus positions. COMPARISON: None FINDINGS: The following findings are reported according to the CT Colonography Reporting and Data System (C-RADS) from Radiology 2005; 236:3-9. Colonic preparation and distention: adequate. All six segments of the colon are adequately distended on both supine and right lateral decubitus views. ??There is gas within the distal small bowel likely related to an incompetent ileocecal valve. Colonic findings: There is colonic diverticulosis No polyps greater than 5 mm are detected. Extracolonic findings: This CT examination is performed without intravenous contrast and with a low dose technique optimized for evaluation of the colon. ??The liver is enlarged and has diffuse hepatic steatosis. ??Otherwise, within the limits of this technique, no significant extracolonic findings are present. Procedure Note Pramod Abad MD - 01/10/2019 EXAMINATION: CT colonography without intravenous contrast HISTORY: Other specified congenital malformation of the intestine, redundant colon TECHNIQUE: Transaxial computed tomographic images through the abdomen and pelvis were obtained without intravenous contrast after insufflation of the colon with CO2 through a rectal catheter. Images were obtained in the supine and right lateral decubitus positions. COMPARISON: None FINDINGS: The following findings are reported according to the CT Colonography Reporting and Data System (C-RADS) from Radiology 2005; 236:3-9. Colonic preparation and distention: adequate. All six segments of the colon are adequately distended on both supine and right lateral decubitus views. There is gas within the distal small bowel likely related to an incompetent ileocecal valve. Colonic findings: There is colonic diverticulosis No polyps greater than 5 mm are detected. Extracolonic findings: This CT examination is performed without intravenous contrast and with a low dose technique optimized for evaluation of the colon. The liver is enlarged and has diffuse hepatic steatosis. Otherwise, within the limits of this technique, no significant extracolonic findings are present. IMPRESSION: C1: Normal colon or benign lesion, continue routine screening. E4: Potentially important finding Dictated by: Vidal Escalante IV, M.D. The radiology attending physician has personally reviewed this study, and had reviewed and/or edited this written report and agrees with it. Electronically signed by: Pramod Abad M.D. Nando Phillips MD IMG CT PROCEDURES Final Result from Last 3 Months or Most Recently Relevant to Health Maintenance Insurance [id number] [place] [address] [id number] [place] [address] [id number] [place] [address] MEDICARE Care Teams Test Analyst Relationship Specialty Start Date End Date Danny Ivan MD [address] [place] [address] PCP - General Internal Medicine 08/27/21
--- OUTSIDE RECORDS SUMMARY | 2024-04-06 13:53 | XMS_ITS | Referral Summary ---
Author Organization [facility] Address [address] [place] [address] Care Team Providers Care Silk Top Hat Body Maker Name Role Phone Radha Padron MD Primary Care Provider [phone] Source Comments [facility],non-[facility] Affiliates and Associated Physician Practices is amultiple site organization consisting of ambulatory clinics and hospital sitesin [place], [place], [place] and [place]. This disclosure is being madepursuant to the Care Everywhere program and may not contain all information available regarding this patient. Last updated 17.[facility] Social History Tobacco Use Types Packs/Day Years Used Date Smoking Tobacco: Never Assessed Sex and Gender Information Value Date Recorded Sex Assigned at Not on file Gender Identity Not on file Sexual Orientation Not on file Plan of Treatment Not on file Care Teams Silk Top Hat Body Maker Relationship Specialty Start Date End Date Radha Padron MD [id number] [place] [id number] PCP - General 04/20/08
--- OUTSIDE RECORDS SUMMARY | 2024-04-06 13:53 | XMS_ITS | Encounter Summary ---
Author Organization [facility] Address [address] [place] [address] Phone Care Team Providers Care Sales Operations Assistant Name Role Phone Danny Ivan MD Primary Care Provider [phone] Reason for Visit * Reason Comments Medication Refill Encounter Details Date Type Department Care Team (Late st Contact Info) Description 12/29/2022 Refill [facility] - Internal Medicine - [place] [address] [place] [address] Danny Ivan MD [address] [place] [address] Medication Refill Social History Tobacco [...] on file Sexual Orientation Not on file COVID-19 Exposure Response Date Recorded In the last 10 days, have yo u been in contact with someone who was confirmed or suspected to have Coronavirus/COVID-19? No / Unsure 12/21/2022 12:48 PM CDT documented as of this encounter Miscellaneous Notes * Telephone Encounter - Brandy White RN - 12/30/2022 8:05 AM CDT Medication failed the protocol, provider to review and approve the medication order if appropriate. Requested Prescriptions Pending Prescriptions Disp Refills furosemide (LASIX) 20 MG Tablet [Pharmacy Med Name: FUROSEMIDE TABS 20MG] 90 Tablet 3 Sig: TAKE 1 TABLET DAILY Diuretics Protocol Failed - 12/29/2022 11:29 PM Failed - Serum potassium on record in past 12 months No results found for: POTASSIUM, POCTK Failed - Serum sodium on record in past 12 months No results found for: SODIUM Failed - GFR on record in past 12 months No results found for: GFRNA Passed - Blood pressure on record in past 12 months Clinician-entered: BP Readings from Last 3 Encounters: 11/23/22 (!) 128/98 07/14/22 128/66 04/14/22 136/78 Patient-entered: No data recorded Passed - Visit with relevant provider in past 12 months or upcoming 90 days Recent Visits Date Type Provider Dept 11/23/22 Office Visit Danny Ivan MD [facility] [place] 07/14/22 Office Visit Danny Ivan MD [facility] [place] 04/14/22 Office Visit Danny Ivan MD [facility] [place] 01/26/22 Office Visit Danny Ivan MD [facility] [place] 01/06/22 Office Visit Danny Ivan MD [facility] [place] Showing recent visits within past 365 days and meeting all other requirements Future Appointments Date Type Provider Dept 02/22/23 Appointment Danny Ivan MD [facility] [place] Showing future appointments within next 90 days and meeting all other requirements allopurinol (ZYLOPRIM) 100 MG Tablet [Pharmacy Med Name: ALLOPURINOL TABS 100MG] 90 Tablet 3 Sig: TAKE 1 TABLET DAILY Gout Agents Protocol Failed - 12/29/2022 11:29 PM Failed - Uric acid on record in past 12 months No results found for: URIC Failed - Serum creatinine on record in past 12 months No results found for: CREATININE Passed - Visit with relevant provider in past 12 months or upcoming 90 days Recent Visits Date Type Provider Dept 11/23/22 Office Visit Danny Ivan MD [facility] [place] 07/14/22 Office Visit Danny Ivan MD [facility] [place] 04/14/22 Office Visit Danny Ivan MD [facility] [place] 01/26/22 Office Visit Danny Ivan MD [facility] [place] 01/06/22 Office Visit Danny Ivan MD [facility] [place] Showing recent visits within past 365 days and meeting all other requirements Future Appointments Date Type Provider Dept 02/22/23 Appointment Danny Ivan MD [facility] [place] Showing future appointments within next 90 days and meeting all other requirements documented in this encounter Plan of Treatment Upcoming Encounters Date Type Department Care Team (Late st Contact Info) Description 06/10/2024 10:00 AM CDT Office Visit [facility] - Internal Medicine - [place] [address] [place] [address] Danny Ivan MD [address] [place] [address] documented as of this encounter Visit Diagnoses Not on filedocumented in this encounter Care Teams Sales Operations Assistant Relationship Specialty Start Date End Date Danny Ivan MD [address] [place] [address] PCP - General Internal Medicine 05/26/21 documented as of this encounter
--- OUTSIDE RECORDS SUMMARY | 2024-04-06 13:53 | XMS_ITS | Patient Health Summary ---
Author Organization [facility] Address [address] [place] [address] Care Team Providers Care Chief Security And Safety Officer Name Role Phone Radha Padron MD Primary Care Provider [phone] Note from [facility],non-owned Affiliates and Associated Physician Practices is amultiple site organization consisting of ambulatory clinics and hospital sitesin [place], [place], [place] and [place]. This disclosure is being madepursuant to the Care Everywhere program and may not contain all information available regarding this patient. Last updated 17.[facility] Social History Tobacco Use Types Packs/Day Years Used Date Smoking Tobacco: Never Assessed Sex and Gender Information Value Date Recorded Sex Assigned at Not on file Gender Identity Not on file Sexual Orientation Not on file Procedures * BASIC METABOLIC PANEL (CALCIUM TOTAL)(Performed 04/26/2008) * LITHIUM LEVEL(Performed 04/26/2008) * LITHIUM LEVEL(Performed 04/24/2008) * DRUG SCREEN URINE ABUSE INHOUSE(Performed 04/21/2008) * CULTURE WOUND(Performed 04/21/2008) * TSH(Performed 04/21/2008) * BASIC METABOLIC PANEL (CALCIUM TOTAL)(Performed 04/21/2008) Results * (ABNORMAL) BASIC METABOLIC PANEL (CALCIUM TOTAL) (04/26/2008 7:30 AM WELT DRAWER) Only the most recent of2 resultswithin the time period is included. BUN 11 7.0 - 17.0 mg/dl [facility] Sodium 139 137 - 145 mEq/L [facility] Potassium 4.2 3.6 - 5.0 mEq/L [facility] Chloride 102 98.0 - 107.0 mEq/L [facility] CO2 25 22.0 - 30.0 mEq/L [facility] Anion Gap 12.6 [facility] Glucose 175(H) 75 - 110 mg/dl [facility] Creatinine 1.0 0.7 - 1.2 mg/dl [facility] Calcium 10.0 8.4 - 10.2 mg/dl [facility] eGFR by MDRD 62.1 ml/min/1.73 m2 [facility] BLOOD SPECIMEN / Unknown 04/26/2008 7:30 AM WELT DRAWER Radha Padron MD LAB - CHEMISTRY [place] HAGEN [facility] * LITHIUM LEVEL (04/26/2008 7:30 AM WELT DRAWER) Only the most recent of2 resultswithin the time period is included. [place] 1.0 0.6 - 1.2 mEq/L [facility] BLOOD SPECIMEN / Unknown 04/26/2008 7:30 AM WELT DRAWER Radha Padron MD LAB - CHEMISTRY [place] Performing Organization Address City/[facility]/ZIP Co de Phone Number [facility] * (ABNORMAL) DRUG SCREEN URINE ABUSE INHOUSE (04/21/2008 5:30 PM WELT DRAWER) Amphetamines Screen Urine Negative Negative [facility] Barbiturates Screen Urine Negative Negative [facility] Benzodiazepines Screen Urine Negative Negative [facility] Cocaine Screen Urine Negative Negative [facility] Cannabinoids Screen Urine Positive(A) Negative [facility] Opiate Screen Urine Positive(A) Negative [facility] Phencyclidine Screen Urine Negative Negative [facility] Methadone Screen Urine Negative Negative [facility] Legal Disclaimer [facility] Comment: This drug screen is designed for MEDICAL purposes only. It is not to be used for legal purposes including but not limited to workman's comp, police investigations, occupational issues, child custody, etc. Any positive result is only presumptive and must be confirmed with a separate confirmatory test. URINE / Unknown 04/21/2008 5 :30 PM WELT DRAWER M Alin Padron MD LAB - URINE CHEMISTR Y ORDERABLES [facility] * CULTURE WOUND (04/21/2008 7:45 AM WELT DRAWER) Result [facility] Comment: Final ACCN COMMENT - Left ankle ?? wound c/s GRAM STAIN No WBC's seen Heavy gram positive cocci ?? CULTURE STAPHYLOCOCCUS AUREUS ??Heavy ??Organism is presumed resistant ? to Clindamycin based on ? detection of ??inducible clindamycin ? resistance ??Cefazolin ? MARYCRUZ ?Sensitive ?<=8 ?? ug/ml ??Ciprofloxacin ? MARYCRUZ ?Sensitive ?<=0.5 ?? ug/ml ??Clindamycin ? MARYCRUZ ?Resistant ?>=8 ?? ug/ml ??Erythromycin ?MARYCRUZ ?Resistant ?8 ?? ug/ml ??Gentamicin ?MARYCRUZ ?Sensitive ?<=2 ?? ug/ml ??Oxacillin ? MARYCRUZ ?Sensitive ?0.5 ?? ug/ml ??Penicillin G ?MARYCRUZ ?Resistant ? >=16 ?? ug/ml ??Trimethoprim/Sulfame ??MARYCRUZ ?Sensitive ? <=10 ?? ug/ml ??Vancomycin ?MARYCRUZ ?Sensitive ?<=0.5 ?? ug/ml ENTIRE ANKLE REGION / Unknown 04/21/2008 7:45 AM WELT DRAWER 04/21/2008 8:01 AM WELT DRAWER Narrative Resulting Agency Comment Performed By [facility] ? [address] ? [place] [address] Norberto Goodrich MD LAB - MICROBIOLOGY O RDERABLES Performing Organization Address City/[facility] Co de Phone Number [facility] * TSH (04/21/2008 7:00 AM WELT DRAWER) TSH 2.355 0.35 - 5.50 uIU/ml [facility] BLOOD SPECIMEN / Unknown 04/21/2008 7:00 AM WELT DRAWER Narrative Resulting Agency Comment Performed By [facility] ? [address] ? [place] [address] Norberto Goodrich MD LAB - CHEMISTRY ORDJason HAGEN Performing Organization Address City/[facility] Co de Phone Number [facility] Care Teams Chief Security And Safety Officer Relationship Specialty [place] [address] [phone] PCP - General 04/20/08
--- OUTSIDE RECORDS SUMMARY | 2024-04-06 13:53 | XMS_ITS | Encounter Summary ---
Author Organization [facility] Address [address] [place] [address] Care Team Providers Care Costumer Name Role Phone Unavailable Primary Care Provider Unavailabl e Encounter Details Date Type Department Care Team (Latest Contact Info) Description 06/20/2007 Outpatient Historical [facility] [place] [address] [facility] [address] [place] [address] Essential Hypertension, Benign Social History Tobacco Use Types Packs/Day Years Used Date Smoking Tobacco: Never Assessed Comments Unknown Sex and Gender Information Value Date Recorded Sex Assigned at Not on file Legal Sex Female 4:51 AM SUPERINTENDENT COMPRESSOR STATIONS Gender Identity Not on file Sexual Orientation Not on file documented as of this encounter Plan of Treatment Not on file documented as of this encounter Procedures Procedure Name Priority Date/Time Associated Diagnosis Comments XR CHEST PA AND LATERAL 2 VW Routine 06/20/2007 12:38 PM CDT CBC WITH DIFFERENTIAL Routine 06/20/2007 12:20 PM CDT BASIC METABOLIC PANEL Routine 06/20/2007 12:20 PM CDT documented in this encounter Results * XR CHEST PA AND LATERAL (06/20/2007 12:38 PM CDT) Anatomical Region Laterality Modality Chest Other 06/20/2007 12:3 8 PM CDT Narrative 06/20/2007 4:37 PM CDT ? [facility] ? [address] ?[place], [place] ??[address] ?Admit Date: 06/20/2007 ?SHERRIE, SUSU ?Sex: F ?Admit Prov: MARCO KEITH ? Date: 1955 ?Primary Care Prov: ANNETTE ELLIS ? CMRN: [id number] ?Room: MDB-A ?SSN: [id number] ? IMAGING SERVICES ?Ordering Prov: N/A ? Accession Number: [id number] ?Interpretation ? CHEST 2 VIEWS, 06/20/2007 ? Clinical History: Hypertension and respiratory symptoms. ? PA and lateral views of the chest on 06/20/2007 without prior films for ? comparison demonstrates the cardiomediastinal silhouette and pulmonary ? vasculature to be within normal limits. Lungs are clear of acute processes. ? No effusions or pneumothoraces are evident. ? Impression: ? No acute disease. ? . ? Dictated by: ??ROSEANN SLAUGHTER ?06/20/2007 12:47 ? Electronically signed by: ??ROSEANN SLAUGHTER06/20/2007 16:37 ? Transcribed: ??06/20/2007 16:36 ?SMM Procedure Note Roseann Slaughter MD - 06/20/[address] [address] Admit Date: 06/20/2007 SUSU BALDERAS Sex: F Admit Prov: MARCO KEITH Date: 1955 Primary Care Prov: ANNETTE ELLIS CMRN: [id number] Room: [facility] SSN: [id number] IMAGING SERVICES Ordering Prov: N/A Interpretation CHEST 2 VIEWS, 06/20/2007 Clinical History: Hypertension and respiratory symptoms. PA and lateral views of the chest on 06/20/2007 without prior filmsfor comparison demonstrates the cardiomediastinal silhouette andpulmonary vasculature to be within normal limits. Lungs are clear of acuteprocesses. No effusions or pneumothoraces are evident. Impression: No acute disease. . Dictated by: ROSEANN SLAUGHTER 06/20/2007 12:47 Electronically signed by: ROSEANN SLAUGHTER06/20/2007 16:37 Transcribed: 06/20/2007 16:36 SMM us Marco Keith MD DIAGNOSTIC IMAGING ORDERABLES Final Result * BASIC METABOLIC PANEL (06/20/2007 12:20 PM CDT) BUN 11 6 - 20 mg/dL [facility] CHLORIDE 98 96 - 108 mmol/L [facility] GLUCOSE 86 65 - 99 mg/dL [facility] SODIUM 137 135 - 145 mmol/L [facility] CALCIUM 9.2 8.4 - 10.2 mg/dL [facility] CO2 26 22 - 30 mmol/L [facility] CREATININE 0.77 0.51 - 0.95 mg/dL [facility] POTASSIUM 4.0 3.5 - 4.9 mmol/L [facility] GFR, >60 >=60 mL/min/1.7 sq meter [facility] GFR >60 >=60 mL/min/1.7 sq meter [facility] Comment: Estimated GFR rate interpretative information for both Americans and non- Americans is available on the [facility] Intranet at: [email or web address] Select: Lab Policies and Procedures Select: Reference Ranges - GFR Blood specimen (specimen) 06/20/2007 12:20 PM CDT 06/20/2007 1:13 PM CDT us Marco Keith MD CHEMISTRY ORDERABLES Edited [facility] [address] [facility] [address] [place] [address] * (ABNORMAL) CBC WITH DIFFERENTIAL (06/20/2007 12:20 PM CDT) HEMATOCRIT 41.3 35.5 - 44.0 % [facility] RDW-STDEV 48.0 37.1 - 48.7 fL [facility] RBC 4.37 3.90 - 4.90 M/uL [facility] MCHC 32.0 31.5 - 35.5 % [facility] MCV 94.5 82.0 - 99.0 fL [facility] PLATELETS 354(H) 140 - 350 K/uL [facility] HEMOGLOBIN 13.2 11.8 - 14.8 g/dL [facility] RDW 13.9 11.5 - 14.5 % [facility] WBC 10.0(H) 4.0 - 9.8 K/uL [facility] MCH 30.2 27.2 - 32.6 pg [facility] MPV 9.3 9.3 - 12.4 fL [facility] MONOCYTES 6 3 - 13 % [facility] MONOCYTE ABSOLUTE 0.64 0.10 - 1.30 K/uL [facility] NEUTROPHILS 58 45 - 70 % [facility] NEUTROPHIL ABSOLUTE 5.83 1.90 - 7.00 K/uL [facility] EOSINOPHILS 2 0 - 7 % [facility] EOSINOPHIL ABSOLUTE 0.24 0.00 - 0.70 K/uL [facility] LYMPHOCYTES 33 16 - 45 % [facility] LYMPHOCYTE ABSOLUTE 3.26 0.70 - 4.50 K/uL [facility] BASOPHILS 0 0 - 2 % [facility] BASOPHILS ABSOLUTE 0.04 0.00 - 0.20 K/uL [facility] Blood specimen (specimen) 06/20/2007 12:20 PM CDT 06/20/2007 1:25 PM CDT us Marco Keith MD HEMATOLOGY ORDERABLES Edited INTERFACE SYSTEM Refer to clinic/hospital department [facility] [address] [place] [address] documented in this encounter Visit Diagnoses Diagnosis Essential hypertension, benign documented in this encounter
--- OUTSIDE RECORDS SUMMARY | 2024-04-06 13:53 | XMS_ITS | Encounter Summary ---
Author Organization [facility] Address [address] [facility] [place] [address] Phone Care Team Providers Care Syrup Mixer Assistant Name Role Phone Danny Ivan MD Primary Care Provider [phone] Reason for Visit * Reason Comments Medication Refill Encounter Details Date Type Department Care Team (Late st Contact Info) Description 09/08/2022 Refill [facility] [place] [address] [place] [address] Danny Ivan MD [address] [facility] [address] Medication Refill Social History Tobacco [...] Telephone Encounter - Brandy White RN - 09/08/2022 10:48 AM CDT Medication failed the protocol, provider to review and approve the medication order if appropriate. Requested Prescriptions Pending Prescriptions Disp Refills Trulicity 3 MG/0.5ML Solution Pen-injector [Pharmacy Med Name: TRULICITY 3 MG/0.5 ML PEN] 2 mL 5 Sig: INJECT 3MG UNDER THE SKIN ONCE WEEKLY GLP-1 Agonists Protocol Failed - 09/08/2022 9:21 AM Failed - Lipid panel result on file in past 12 months LDL Date Value Ref Range Status 04/14/2022 127 0 - 130 mg/dL Final Failed - GFR on record in past 6 months No results found for: GFRNA Passed - Visit with relevant provider in past 6 months or upcoming 90 days Recent Visits Date Type Provider Dept 07/14/22 Office Visit Danny Ivan MD [facility] 04/14/22 Office Visit Danny Ivan MD [facility] Showing recent visits within past 182 days and meeting all other requirements Future Appointments Date Type Provider Dept 10/17/22 Appointment Danny Ivan MD [facility] Showing future appointments within next 90 days and meeting all other requirements Passed - HgA1C result on record in past 6 months HGB-A1C Date Value Ref Range Status 04/14/2022 8.4 (A) 4 - 6 Final documented in this encounter Plan of Treatment Upcoming Encounters Date Type Department Care Team (Late st Contact Info) Description 06/10/2024 10:00 AM CDT Office Visit [facility] - Internal [facility] - [place] [address] [place] [address] Danny Ivan MD [address] [place] [address] documented as of this encounter Visit Diagnoses Not on filedocumented in this encounter Care Teams Syrup Mixer Assistant Relationship Specialty Start Date End Date Danny Ivan MD [address] [place] [address] PCP - General Internal Medicine 05/26/21 documented as of this encounter
--- OUTSIDE RECORDS SUMMARY | 2024-04-06 13:53 | XMS_ITS | Encounter Summary ---
Author Organization [employer] Address 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 CHIEF Gender Identity Not on file Sexual Orientation Not on file documented as of this encounter Plan of Treatment Not on file documented as of this encounter Procedures Procedure Name Priority Date/Time Associated Diagnosis Comments HEMOGLOBIN AND HEMATOCRIT Routine 06/24/2005 4:21 AM CDT HEMOGLOBIN AND HEMATOCRIT Routine 06/23/2005 4:04 AM CDT CBC WITH DIFFERENTIAL Routine 06/22/2005 5:20 AM CDT CBC WITH DIFFERENTIAL Routine 06/22/2005 5:20 AM CDT POC , URINE Routine 06/21/2005 7:04 AM CDT HEMOGLOBIN AND HEMATOCRIT Routine 06/17/2005 10:10 AM CDT BASIC METABOLIC PANEL Routine 06/17/2005 10:10 AM CDT documented in this encounter Results * (ABNORMAL) HEMOGLOBIN AND HEMATOCRIT (06/24/2005 4:21 AM CDT) HEMOGLOBIN 7.9(AA) 11.8 - 14.8 g/dL INTERFACE SYSTEM Comment:Persistent abnormal result HEMATOCRIT 24.1(L) 35.5 - 44.0 % INTERFACE SYSTEM 06/24/2005 4:21 AM CDT James Monroe MD HEMATOLOGY ORDERABLES Final Re sult Performing Organization Address [facility] de Phone Number INTERFACE SYSTEM Refer to clinic/hospital department * (ABNORMAL) HEMOGLOBIN AND HEMATOCRIT (06/23/2005 4:04 AM CDT) HEMOGLOBIN 7.7(AA) 11.8 - 14.8 g/dL INTERFACE SYSTEM Comment: Results called to Starr at 06/23/2005 6:40 AM and read back verified. Verified by repeat analysis. t=1 HEMATOCRIT 24.0(L) 35.5 - 44.0 % INTERFACE SYSTEM 06/23/2005 4:04 AM CDT Patricia Perdue MD HEMATOLOGY ORDERA BLES Final Result Performing Organization Address [facility] de Phone Number INTERFACE SYSTEM Refer to clinic/hospital department * (ABNORMAL) CBC WITH DIFFERENTIAL (06/22/2005 5:20 AM CDT) NEUTROPHILS 83(H) 45 - 70 % INTERFAC E SYSTEM LYMPHOCYTES 11(L) 16 - 45 % INTERFAC E SYSTEM MONOCYTES 6 3 - 13 % INTERFACE SYSTEM EOSINOPHILS 0 0 - 7 % INTERFAC E SYSTEM BASOPHILS 0 0 - 2 % INTERFACE SYSTEM NEUTROPHIL ABSOLUTE 10.80(H) 1.90 - 7.00 K/uL INTERFACE SYSTEM LYMPHOCYTE ABSOLUTE 1.45 0.70 - 4.50 K/uL INTERFACE SYSTEM MONOCYTE ABSOLUTE 0.84 0.10 - 1.30 K/uL INTERFACE SYSTEM EOSINOPHIL ABSOLUTE 0.00 0.00 - 0.70 K/uL INTERFACE SYSTEM BASOPHILS ABSOLUTE 0.00 0.00 - 0.20 K/uL INTERFACE SYSTEM 06/22/2005 5:20 AM CDT James Monroe MD HEMATOLOGY ORDERABLES Final Re sult Performing Organization Address [facility] Phone Number INTERFACE SYSTEM Refer to clinic/hospital department * (ABNORMAL) CBC WITH DIFFERENTIAL (06/22/2005 5:20 AM CDT) WBC 13.1(H) 4.0 - 9.8 K/uL INTERFACE SYSTEM RBC 2.62(L) 3.90 - 4.90 M/uL INTERFACE SYSTEM HEMOGLOBIN 8.0(L) 11.8 - 14.8 g/dL INTERFACE SYSTEM HEMATOCRIT 24.3(L) 35.5 - 44.0 % INTERFACE SYSTEM MCV 92.7 82.0 - 99.0 fL INTERFACE SYSTEM MCH 30.5 27.2 - 32.6 pg INTERFACE SYSTEM MCHC 32.9 31.5 - 35.5 % INTERFACE SYSTEM RDW 14.2 11.5 - 14.5 % INTERFACE SYSTEM RDW-STDEV 48.2 37.1 - 48.7 fL INTERFACE SYSTEM PLATELETS 237 140 - 350 K/uL INTERFACE SYSTEM MPV 9.0(L) 9.3 - 12.4 fL INTERFACE SYSTEM 06/22/2005 5:20 AM CDT us James Monroe MD HEMATOLOGY ORDERABLES Final Re sult Performing Organization Address [facility] Phone Number INTERFACE SYSTEM Refer to clinic/hospital department * POC , URINE (06/21/2005 7:04 AM CDT) HCG QUAL URINE Negative Negative INTER FACE SYSTEM SPECIFIC GRAVITY UA 1.020 1.001 - 1.035 INTERFACE SYSTEM 06/21/2005 7:04 AM CDT us James Monroe MD POINT OF CARE TESTING Final Re sult Performing Organization Address [facility] Phone Number INTERFACE SYSTEM Refer to clinic/hospital department * BASIC METABOLIC PANEL (06/17/2005 10:10 AM CDT) GLUCOSE 107 65 - 109 mg/dL INTERFACE SYSTEM CREATININE 0.7 0.4 - 1.2 mg/dL INTERFACE SYSTEM CALCIUM 9.5 8.6 - 10.2 mg/dL INTERFACE SYSTEM BUN 11 6 - 20 mg/dL INTERFACE SYSTEM SODIUM 137 135 - 145 mmol/L INTERFACE SYSTEM POTASSIUM 3.8 3.5 - 4.9 mmol/L INTERFACE SYSTEM CHLORIDE 98 96 - 108 mmol/L INTERFACE SYSTEM CO2 29 22 - 30 mmol/L INTERFACE SYSTEM 06/17/2005 10:1 0 AM CDT us James Monroe MD CHEMISTRY ORDERABLES Final Res ult Performing Organization Address [facility] Phone Number INTERFACE SYSTEM Refer to clinic/hospital department * HEMOGLOBIN AND HEMATOCRIT (06/17/2005 10:10 AM CDT) HEMOGLOBIN 12.9 11.8 - 14.8 g/dL INTERFACE SYSTEM HEMATOCRIT 39.3 35.5 - 44.0 % INTERFACE SYSTEM 06/17/2005 10:1 0 AM CDT us James Monroe MD HEMATOLOGY ORDERABLES Final Re sult Performing Organization Address [facility] Co de Phone Number INTERFACE SYSTEM Refer to clinic/hospital department documented in this encounter Visit Diagnoses Diagnosis Intramural leiomyoma of uterus- Primary documented in this encounter
--- OUTSIDE RECORDS SUMMARY | 2024-04-06 13:53 | XMS_ITS | Encounter Summary ---
Author Organization [facility] Address [address] [facility] [place] [address] Phone Care Team Providers Care Bulk Gas Specialist Name Role Phone Danny Ivan MD Primary Care Provider [phone] Reason for Visit * Reason Comments Medication Refill Encounter Details Date Type Department Care Team (Late st Contact Info) Description 01/06/2022 Refill [facility] - Internal Medicine - [place] [address] [place] [address] Danny Ivan MD [address] [facility] [place] [address] Medication Refill Social History Tobacco [...] suspected to have Coronavirus/COVID-19? No / Unsure 01/06/2022 9:58 AM CDT documented as of this encounter Miscellaneous Notes * Telephone Encounter - Geetha Arteaga RN - 01/07/2022 6:36 AM CDT Medication failed the protocol, provider to review and approve the medication order if appropriate. Requested Prescriptions Pending Prescriptions Disp Refills naproxen (NAPROSYN) 250 MG Tablet [Pharmacy Med Name: NAPROXEN 250 MG TABLET] 60 Tablet 0 Sig: TAKE 1 TABLET BY MOUTH TWICE A DAY NSAIDs Protocol Failed - 01/06/2022 8:54 PM Failed - Normal serum creatinine in past 12 months No results found for: CREATININE Failed - No matching NSAID med order in past 45 days Matching medication order placed on 12/29/2021 9:42 AM Order [id number]: naproxen (NAPROSYN) 250 MG Tablet (For orders placed between 11/23/2021 6:36 AM and 01/07/2022 6:36 AM) Failed - AST less than 55 [...] days Recent Visits Date Type Provider Dept 01/06/22 Office Visit [facility] [place] 10/06/21 Office Visit Danny Ivan MD [facility] [place] 07/08/21 Office Visit Kimmy Cameron, [facility] 06/24/21 Office Visit Kimmy Cameron, [facility] [place] 06/18/21 Office Visit Kimmy Cameron, [facility] [place] 06/14/21 Office Visit Danny Ivan MD [facility] [place] Showing recent visits within past 365 days and meeting all other requirements Future Appointments No visits were found meeting these conditions. Showing future appointments within next 90 days and meeting all other requirements Trulicity 0.75 MG/0.5ML Solution Pen-injector [Pharmacy Med Name: TRULICITY 0.75 MG/0.5 ML PEN] 2 mL 1 Sig: INJECT 0.5 ML UNDER THE SKIN ONCE WEEKLY GLP-1 Agonists Protocol Failed - 01/06/2022 8:54 PM Failed - Lipid panel result on file in past 12 months LDL Date Value Ref Range Status 10/01/2021 124 0 - 130 mg/dL Final Failed - GFR on record in past 6 months No results found for: GFRNA Passed - Visit with relevant provider in past 6 months or upcoming 90 days Recent Visits Date Type Provider Dept 01/06/22 Office Visit Danny Ivan MD [facility] 10/06/21 Office Visit Danny Ivan MD [facility] Showing recent visits within past 182 days and meeting all other requirements Future Appointments No visits were found meeting these conditions. Showing future appointments within next 90 days and meeting all other requirements Passed - HgA1C result on record in past 6 months HGB-A1C Date Value Ref Range Status 01/03/2022 7.0 % Final documented in this encounter Plan of Treatment Upcoming Encounters Date Type Department Care Team (Late st Contact Info) Description 06/10/2024 10:00 AM CDT Office Visit [facility] - Internal Medicine - [place] [address] [place] [address] Danny Ivan MD [address] [place] [address] documented as of this encounter Visit Diagnoses Not on filedocumented in this encounter Care Teams Bulk Gas Specialist Relationship Specialty Start Date End Date Danny Ivan MD [address] [place] [address] PCP - General Internal Medicine 05/26/21 documented as of this encounter
--- OUTSIDE RECORDS SUMMARY | 2024-04-06 13:53 | XMS_ITS | Encounter Summary ---
Author Organization [employer] Address [address] [place] [address] Care Team Providers Care Monitor Worker Name Role Phone Unavailable Primary Care Provider Unavailabl e Encounter Details Date Type Department Care Team (Late st Contact Info) Description 06/17/2005 Outpatient Historical [facility] [address] 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
--- OUTSIDE RECORDS SUMMARY | 2024-04-06 13:53 | XMS_ITS | Clinical Summary ---
Author Organization [address] Address [address] [place] [address] Care Team Providers Care Community Service Director Name Role Phone Danny Ivan MD Primary Care Provider [phone] Allergies Active Allergy Reactions Criticality Noted Date [...] Pcv20 10/06/2021 Td, adsorbed 11/22/2014 Tdap 11/19/2014 Surgical History Surgery Date Site/Laterality Comments CARPAL TUNNEL RELEASE ANKLE SURGERY 03/06/2005 - 03/05/2006 ELBOW SURGERY 03/06/2005 - 03/05/2006 HYSTERECTOMY 03/06/2005 - 03/05/2006 Medical History Medical History Date Comments Arthritis Diabetes mellitus (HCC) Gout Hypertension Motion sickness 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, 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 Family History Medical History Relation Name Comments Scoliosis Daughter Hypertension Father Lung disease Father Diabetes Mother Hypertension Mother Cancer Sister Scoliosis Sister Relation Name Status Comments Daughter Father Mother Sister Social History Tobacco Use [...] on file Legal Sex Female 12:29 AM PROPERTY 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 Gender Identity Not on file Sexual Orientation Not on file Obstetrics History Last Filed Vital Signs Vital Sign Reading [...] 12/04/2023 9:33 AM CDT Plan of Treatment Health Maintenance Due Date Last Done Comments Albumin Creatinine Ratio, Urine 1955 Depression Screening 1955 Hemoglobin A1C 1955 Hepatitis C Screening 1955 Osteoporosis Screening-Bone Density Scan 1955 eGFR 1955 Dilated Eye Exam 1955 Foot Exam 1955 Lipid Panel 1955 Hepatitis B Screening 1974 Zoster Vaccine (1 of 2) 2006 Well Visit 65+ 2021 Influenza Vaccine (#1) 2023 Breast Cancer Screening-Mammogram 12/22/2023 023, 12/21/2022 Fall Risk Assessment 01/17/2024 01/16/2023 DTaP/Tdap/Td Vaccine (3 - Td or Tdap) 11/22/2024, 11/19/2014 Colon Cancer Screening-Colonoscopy 01/10/20292018 Colon Cancer Screening-CT Colonography Discontinued Colon Cancer Screening-DNA Stool Discontinued 01/11/20 Colon Cancer Screening-FIT Discontinued 01/10/2019 Colon Cancer Screening-Sigmoidoscopy Discontinued 09/2018 Pneumococcal vaccine 65+ Completed 10/06/2021 Procedures Procedure Name Priority Date/Time Associated Diagnosis Comments CT VIRTUAL COLONOSCOPY DIAGNOSTIC WO CONTRAST Schedule Routine, Read Routine (OP Routine) 01/10/2019 10:37 AM PROPERTY MANAGEMENT ACCOUNTANT Other specified congenital malformations of intestine from Last 3 Months or Most Recently Relevant to Health Maintenance Results * CT Colonoscopy Diagnostic WO Contrast (01/10/2019 10:37 AM PROPERTY MANAGEMENT ACCOUNTANT) Anatomical Region Laterality Modality Body N/A Computed Tomogra phy 01/10/2019 1:05 PM PROPERTY MANAGEMENT ACCOUNTANT Impressions 01/10/2019 2:41 PM PROPERTY MANAGEMENT ACCOUNTANT C1: Normal colon or benign lesion, continue routine screening. E4: Potentially important finding Dictated by: Vidal Escalante IV, M.D. The radiology attending physician has personally reviewed this study, and had reviewed and/or edited this written report and agrees with it. Electronically signed by: Pramod Abad M.D. Narrative 01/10/2019 2:41 PM PROPERTY MANAGEMENT ACCOUNTANT EXAMINATION: ?? CT colonography without intravenous contrast [...] it. Electronically signed by: Pramod Abad M.D. aNndo Phillips MD IMG CT PROCEDURES Final Result from Last 3 Months or Most Recently Relevant to Health Maintenance Insurance [id number] [place] [address] [id number] [place] [address] MEDICARE [place] [address] MEDICARE Care Teams Community Service Director Relationship Specialty Start Date End Date Danny Ivan MD [address] [place] [address] PCP - General Internal Medicine 08/27/21
--- OUTSIDE RECORDS SUMMARY | 2024-04-06 13:57 | XMS_ITS | CONTINUITY OF CARE DOCUMENT ---
Author Name panda mosqueda Address Unknown Organization [facility] Address [address] [place] [address] [address] [place] [address] Phone [phone] Care Team Providers Care Director Food Safety Name Role Phone panda mosqueda Unavailable Unavailable
--- OUTSIDE RECORDS SUMMARY | 2024-04-06 13:58 | XMS_ITS | Clinical Summary ---
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 Gender Identity Not on file Sexual Orientation Not on file Plan of Treatment Health Maintenance Due Date Last Done Comments DTAP/TDAP/TD VACCINES (1 - Tdap) 07/23/1975 BREAST CANCER SCREENING 1996 COLORECTAL SCREENING 2001 Colorectal Cancer Screening 2001 FIT-DNA Q 3 years 2001 FIT/FOBT Q 1 year 2001 Flex Sig/CT Colonography Q 5 years 2001 PNEUMOCOCCAL VACCINE 65+ YEARS (1 of 1 - PCV) 07/23/19 07 ZOSTER VACCINE (1 of 2) 2006 OSTEOPOROSIS SCREENING 2021 INFLUENZA VACCINE (#1) 2023 RSV VACCINE (60+ or ) (1 - 1-dose 75+ series) 07/23/2031 Insurance [facility] [id number] [facility] Address: [facility] [address] [place] [address]
[2024-04-06 14:13] VITALS: BP 128/72; PULSE 92; RESP 20; TEMP 36.3; O2SAT 97
--- NOTE | 2024-04-06 14:38 | ED.SKABFB ---
HPI - Skin/Abscess/Foreign Bdy General Chief complaint: Skin/Abscess/Foreign Body Stated complaint: Rash Time Seen by Provider: 04/06/24 14:38 Source: patient, RN notes reviewed and old records reviewed Mode of arrival: ambulatory Limitations: no limitations History of Present Illness HPI narrative: 68 year old female presents to [facility] with complaints of red raised itchy bumps over arms, upper chest, legs and back and on the buttocks for the past 2 weeks. Patient reports that she has been taking Benadryl and applying Neosporin ointment to her skin. Patient has noted scratch munoz in areas of rash with no pustule formation noted,no drainage noted, not linear but diffuse pattern and itchy. Patient reports no one else in family has rash. Patient wonders if she could be allergic to her Mounjaro but has been taking since June of 2023. Patient was treated early in March for furuncle to left upper arm which has healed with remaining scaly patch of skin noted.. MD complaint: rash Onset (ago): week(s) (2) Location: generalized Severity: moderate Quality: pruritic Treatments prior to arrival: Benadryl and other (Neosporin) Related Data Home Medications ?Medication ?Instructions ?Recorded ?Confirmed ?Last Taken ?Type atenolol 25 mg tablet 25 mg PO DAILY 09/30/20 03/08/24 Unknown History furosemide 20 mg tablet 20 mg PO QAM 09/30/20 03/08/24 Unknown History allopurinol 100 mg tablet 100 mg PO DAILY 10/18/23 03/08/24 Unknown History tirzepatide 10 mg/0.5 mL See Rx Instructions .Route .COMPLEX 10/18/23 04/06/24 Unknown History subcutaneous pen injector (Mounjaro) tirzepatide 12.5 mg/0.5 mL mg subcut 04/06/24 Unknown History subcutaneous pen injector (Mounjaro) Allergies Allergy/AdvReac Type Severity Reaction Status Date / Time SHELLFISH Allergy Unknown unknown Uncoded 04/06/24 14:30 Review of Systems Review of Systems: CONSTITUTIONAL: Denies fever, chills, or sweats. CARDIOVASCULAR: Denies chest pain, palpitations, or edema. RESPIRATORY: Denies cough or dyspnea. SKIN: Reports small red raised itchy lesions on arms, legs, upper chest back and on buttocks for 2 weeks duration MUSCULOSKELETAL: Denies joint pain or myalgia. NEUROLOGIC: Denies headache, numbness, or weakness. All systems reviewed & are unremarkable except as noted in HPI and below PMFSH Past Medical History Medical History Fracture of posterior malleolus of left tibia Gout Diabetes HTN (hypertension) Surgical History Surgical History History of hysterectomy H/O foot surgery Social History Social History Smoking status: Never smoker Alcohol intake: never Substance use: never Occupation/Education: occupation Gender identity (if verbalized by the patient): Female Comments At time of signature, agree with nursing past medical, surgical, social and family history. There is no relevant family history pertinent to the presenting complaint Exam Narrative: GENERAL: Well-appearing, well-nourished, obese, and in no acute distress. HEAD: Normocephalic, atraumatic. EYES: PERRLA, conjunctivae clear, and EOMI. ENT: Mucous membranes moist. Oropharynx without edema, erythema or lesions. NECK: Supple. No lymphadenopathy CHEST: Clear to auscultation. No respiratory distress.SAO2 97% on room air HEART: Regular rate and rhythm. SKIN: Warm, dry.? diffuse areas of small red raised red lesions on arms, legs, upper chest back and on buttocks which is itch, scratch daniel on skin from patient itching. no drainage.or pustule formation NEURO:? Alert and oriented x3. PSYCH: Normal mood and affect Course Course Emergency Course: Patient is aware of diagnosis, understands and agrees to treatment plan.? Anticipatory guidance given.? Patient agrees to follow-up as directed and is aware of reasons to seek care at the emergency department. Portions of this record may have been created with voice recognition software Level of Care: Express Care Visit Vital Signs Vital signs: Vital Signs Temperature 36.3 C L 04/06/24 14:13 Pulse Rate 92 04/06/24 14:13 Respiratory Rate 20 04/06/24 14:13 Blood Pressure 128/72 04/06/24 14:13 Pulse Oximetry 97 04/06/24 14:13 Oxygen Delivery Room Air 04/06/24 14:13 Temperature 36.3 C L 04/06/24 14:13 Pulse Rate 92 04/06/24 14:13 Respiratory Rate 20 04/06/24 14:13 Blood Pressure 128/72 04/06/24 14:13 Pulse Oximetry 97 04/06/24 14:13 Oxygen Delivery Room Air 04/06/24 14:13 Reviewed MDM - Skin/Abscess/Foreign Bdy MDM Narrative Medical decision making narrative: Does not appear at this time to be erythema multiforme, bullous, SJS, TEN; no evidence at this time to suggest RMSF, endocarditis or Lyme disease; patient looks well, nontoxic and is tolerating oral intake; no neurologic signs or symptoms; no headache, photophobia or neck pain; afebrile; appropriate for initial outpatient treatment; discussed the importance of follow-up, patient agrees; question, viral exanthema, contact dermatitis, allergic dermatitis, eczema, urticaria. No soft palate or uvula edema, no tongue, lip edema or other mucosal involvement, no respiratory compromise, no stridor, no wheezing, no history of syncope, no hypotension, no nausea, vomiting, or diarrhea.? Instructed patient to go to nearest ER immediately for any worsening symptoms including but not limited to: fever, spreading rash, pain, sore throat, headache, dizziness, chest pain, trouble breathing, or any symptoms concerning to the patient. Differential Diagnosis Differential diagnosis: Likely dermatophytosis, cellulitis, eczema and contact dermatitis Medical Records Attestation: I reviewed the patient's medical records. Critical Care Time Critical Care Time Critical Care Time: No Discharge Plan Discharge Clinical Impression: Contact dermatitis and eczema Patient Disposition: Home, Self-Care Condition: Stable Instructions: Antibiotic Form, Contact Dermatitis (ED) Additional Instructions: Cleanse skin daily using liquid Dial soap, may apply triamcinolone ointment to rash watch for any increasing infection--redness, swelling, drainage Tylenol or ibuprofen for any fever pain Prednisone taper take as prescribed take with food watch dietary intake follow up with PCP in 7-10 days for a wound check recheck if develop fever, chills, increasing symptom Go to the ER if your symptoms become worse of if ANY new symptoms develop If your symptoms persist, change or worsen significantly before you can contact your personal physician then please, without delay, go to the emergency department for further evaluation. Follow-up with PCP in 7-10 days or sooner if needed Follow up with PCP soon in regards to your blood pressure which is elevated above threshold for referral. Blood pressure above 120/80 may indicate pre-hypertension. 128/72 Recommend follow-up with Dermatology [facility] at [phone] MARQUES Patient Language: Luxembourger Prescriptions: New prednisone 10 mg tablet 10 mg PO DIRECTED Qty: 21 0RF Rx Instructions: see taper instructions 6 tabs day 1, 5 tabs day 2, 4 tabs day 3, 3 tabs day 4, 2 tabs day 5, 1 tab day 6, take with food triamcinolone acetonide 0.1 % ointment 1 applic topical BID Qty: 80 0RF Rx Instructions: never apply to face cephalexin 500 mg capsule 500 mg PO Q8H Qty: 30 0RF No Action Mounjaro 10 mg/0.5 mL pen injector See Rx Instructions .ROUTE .COMPLEX Rx Instructions: as prescribed allopurinol 100 mg tablet 100 mg PO DAILY triamcinolone acetonide 0.1 % ointment 1 applic topical BID Qty: 80 0RF Rx Instructions: apply to rash twice daily never apply to face mupirocin 2 % ointment 1 applic topical BID 7 Days Qty: 22 0RF Mounjaro 12.5 mg/0.5 mL pen injector SUBCUT atenolol 25 mg tablet 25 mg PO DAILY furosemide 20 mg tablet 20 mg PO QAM Follow-up/Referrals: Moncho,Danny Hoskins MD [Primary Care Provider] - Time of Disposition: 15:13 Quality Huyen Coma Scale Eyes: Open Verbal: Oriented and Alert Motor: Follows Commands Huyen Coma Total Score: 15
== END 2024-04-06 15:15 | disposition home or self-care (01) ==
PROVIDERS: Emergency Provider Registered Nurse; PCP Internal Medicine
DX: L25.9 Unspecified contact dermatitis, unspecified cause (principal); E11.9 Type 2 diabetes mellitus without complications; I10 Essential (primary) hypertension; M10.9 Gout, unspecified
CPT/HCPCS: 99213; G0463

== ENCOUNTER 2024-10-29 09:50 | Emergency (ER) | payer OTHER, SELFPAY ==
--- OUTSIDE RECORDS SUMMARY | 2022-01-01 03:00 | XMS_ITS | Continuity of Care Document ---
Author Organization [facility] [place] Address [address] [place] [address] Phone Care Team Providers Care Juice Weigher Name Role Phone Shoaib OD, Denis Unavailable Unavailable Allergies, Adverse Reactions, Alerts Substance Reaction Status Criticality morphine fever/rash(mild) Active Low Medications Medication Instructions Dosage Effective Dates (start - stop) Status Comments lisinopril 5 mg tablet take 1 tablet by oral route every day 5 MG - Active Synthroid 100 mcg tablet take 1 tablet by oral route every day 100 MCG - Active Eliquis 5 mg tablet take 1 tablet by ora l route 2 times every day 5 MG - Active Procedures Procedure Date REFRACTION EYE EXAM ESTABLISHED PATIENT REFRACTION EYE EXAM, NEW PATIENT EYE EXAM, EXISTING PATIENT VISION REFRACTION OPTIONAL UPDATE EYE EXAM, NEW PATIENT VISION REFRACTION UPDATE Advance Directives Directive Yes / No Effective Date File Name No Information Encounters Encounter Description Practice Location Reason(s) For Visit Diagnoses Date Provider Providers Copied on Encounter [facility], [facility], [address], [place], [id number] , [place] tel:[phone] [facility] vision exam (chief complaint) Hypermetropia, bilateralRegular astigmatism, bilateralPresbyop iaAge-related nuclear cataract, bilateral Dec- 2 Shoaib Barrios. [address] [place] [address], [id number], [place]. [phone] Referring Provider: Denis Gomez, [address] [place] [address], [id number]. tel:[phone] [facility], [address] [place] [address], [id number] , tel:[phone] [facility] blurry vision (chief complaint) Hypermetropia, bilateralRegular astigmatism, bilateralPresbyop iaAge-related nuclear cataract, bilateral 1 Shoaib Barrios. [address] [place] [address], [id number], . tel:[phone] [facility], [address] [place] [address], [id number] , tel: [phone] [facility] no problems with vision and no complaints (chief complaint) PresbyopiaAge-rel ated nuclear cataract, bilateral 0- 7 Grady Ralph. [address] [place] [address], [id number], [place]. tel:[phone] [facility], [address] [place] [address], [id number] , tel:[phone] [facility] no problems with vision and no complaints (chief complaint) PresbyopiaAge-rel ated nuclear cataract, bilateral Jan-0 4-201 6 Grady Ralph. [address] [place] [address], [id number], [place]. [phone] Family History Family Member Type Diagnosis Age At Onset Problem (finding) No family history of Gl aucoma Sister Problem hypertension Sister Problem Diabetes mellitus Mother Problem (finding) cataract Problem (finding) No family hist ory of Macular degeneration Payers Payer name Insurance type Covered libertarian ID Authoriza tion(s) [employer] CI 00 Social History Type Description Quantity Date Captured Comments Alcohol Use Details Unknown Caffeine Use Details Unknown Tobacco Use Status Current non-smoker Smoking Status Never smoker Sex Female Chief Complaint And Reason For Visit From encounter dated '01/01/2022 08:00'. vision exam (chief complaint). Description: The 66 year old patient presents for vision exam OU andf/u CAT OU. Pt states VA is good and stable and constant D & N c gls since last exam. Patient denies: pain or discomfort/ glares or halos. Pt states that she is allergic to a lot of eye drops, does not use AT or eye meds. Reason For Referral Reason For Referral No Information History Of Present Illness Encounter Date Complaint History Of Prese nt Illness vision exam The 66 year old patient presents for vision exam OU and f/u CAT OU. Pt states VA is good and stable and constant D & N c gls since last exam. Patient denies: pain or discomfort/ glares or halos. Pt states that she is allergic to a lot of eye drops, does not use AT or eye meds. blurry vision The 65 Year old female presents for follow up of Refractive Error OU and Cataract OU. Pt complains of blurry vision in the right eye and left eye. It started about 1 year(s) ago. It affects both near and far vision. Pt reports trouble seeing the guide on the TV. Pt reports glare. The patient denies pain or discomfort and COVID-19 symptoms - temperature normal. No eye meds or OTC AT. no problems with vis ion and no complaints The 61 Year old female presents for followup Presbyopia OU and Cataracts OU. Pt reports of no problems with vision and no complaints in the right eye and left eye since last exam. It affects Vision good, stable and constant D & N c gls.. The patient denies pain or discomfort. Pt not using eye meds or art tears OU. no problems with vis ion and no complaints The 60 Year old female presents with no problems with vision and no complaints in the right and left eye since last exam (elsewhere) 1 yr ago. Vision good, stable and constant D & N c gls. The patient denies pain or discomfort, but does report of some glare. Pt using no eye meds. Functional Status Date Functional Assessmen t No Information Instructions Date Instruction Additional Infor harish Impression/Plan Impression/Plan Impression/Plan - Ey es look healthy. No signs of glaucoma or ARMD. Pt has mild cataracts and can consider surgical options if they become bothersome over time. Updated gls Rx available. Follow up - Return i n 1 year with [facility] for Refract T & D. Impression/Plan - Ey es are healthy. IOP's are high end of normal, but optic nerves look perfect. Just recommends exams once a year to check IOP's. No glaucoma and no macular degeneration in either eye. There are mild cataracts, will watch until bothers vision. Rx available today. Can check yearly unless problems. Follow up - Return i n 1 year with [facility] for Refract T & D. Assessments Type Assessment Date assessment Hypermetropia, bilateral 2021 assessment Regular astigmatism, bilateral O assessment Presbyopia assessment Age-related nuclear cataract, bi lateral Patient Care Teams Name Effective Dates (start - stop) Status Members No Information
[2024-10-29 10:06] VITALS: BP 129/70; PULSE 87; RESP 18; TEMP 36.6; O2SAT 99
--- OUTSIDE RECORDS SUMMARY | 2024-10-29 10:11 | XMS_ITS | Encounter Summary ---
Author Organization [facility] Address [address] [place] [address] Phone Care Team Providers Care Home Economics Extension Worker Name Role Phone Danny Ivan MD Primary Care Provider [phone] Reason for Visit * Reason Comments Medication Refill Encounter Details Date Type Department Care Team (Late st Contact Info) Description 08/22/2023 [facility]ill [facility] - [place] [address] [place] [address] Danny Ivan MD [address] [place] [address] Medication Refill Social History Tobacco Use Types Packs/Day Years Used Date Smoking Tobacco: Never Passive Smoke Exposure: Never Smokeless Tobacco: Never Alcohol Use Standard Drinks/Week Comments Not Currently 0 (1 standard drink = 0.6 oz pur e alcohol) [facility] Utilities Answer Date Recorded In the past 12 months has [employer], gas, oil, or water [employer] threatened to shut off services in your home? No 05/22/2023 Social Connection and Isolation Panel Answer Date Recorded In a typical week, how many times do you talk on the phone with family, friends, or neighbors? Patient declined 05/22/2023 How often do you get togethe r with friends or relatives? Patient declined 05/22/2023 How often do you attend gnosticist or faith serv ices? Patient declined 05/22/2023 Do you belong to any clubs o r organizations such as gnosticist groups, unions, fraternal or athletic groups, or [...] Total Score - Questions 1-9 0 05/05 [facility] - Occupational Stress Questionnaire Answer Date Recorded [...] place to sleep or slept in a mcfp (including now)? No 05/22/2023 Education Answer Date [...] 05/24/23 Office Visit Danny Ivan MD [facility] [place] 02/22/23 Office Visit Danny Ivan MD [facility] [place] 11/23/22 Office Visit Danny Ivan MD [facility] Showing recent visits within past 365 days and meeting all other requirements Future Appointments Date Type Provider Dept 09/05/23 Appointment [facility] Show[facility] future appointments within next 90 days and meeting all other requirements documented in this encounter Plan of Treatment Upcoming Encounters Date Type Department Care Team (Late st Contact Info) Description 12/11/2024 9:40 AM CDT Office Visit [facility] - Primary Care - [place] [address] [place] [address] Danny Ivan MD [address] [place] [address] documented as of this encounter Visit Diagnoses Not on filedocumented in this encounter Additional Health Concerns Assessment Noted Time PHQ-9 Depression Total Score: 0 05/24/19 10:53 AM CDT documented as of this encounter Care Teams Home Economics Extension Worker Relationship Specialty Start Date End Date Danny Ivan MD PCP - General Internal Medicine 05/26/21 documented as of this encounter
--- OUTSIDE RECORDS SUMMARY | 2024-10-29 10:11 | XMS_ITS | Encounter Summary ---
Author Organization [facility] Address [address] [place] [address] Phone Care Team Providers Care Press Setter Name Role Phone Danny Ivan MD Primary Care Provider [phone] Reason for Visit * Reason Comments Medication Refill Encounter Details Date Type Department Care Team (Late st Contact Info) Description 08/22/2023 Refill [facility] - [place] [address] [place] [id number] Kimmy Cameron, [facility] [address] [place] [address] Medication Refill Social History Tobacco Use Types Packs/Day Years Used Date Smoking Tobacco: Never Passive Smoke Exposure: Never Smokeless Tobacco: Never Alcohol Use Standard Drinks/Week Comments Not Currently 0 (1 standard drink = 0.6 oz pur e alcohol) [facility] Utilities Answer Date Recorded In the past 12 months has [employer], gas, oil, or water [employer] threatened to shut off services in your home? No 05/22/2023 Social Connection and Isolation Panel Answer Date Recorded In a typical week, how many times do you talk on the phone with family, friends, or neighbors? Patient declined 05/22/2023 How often do you get togethe r with friends or relatives? Patient declined 05/22/2023 How often do you attend jain or sikhism serv ices? Patient declined 05/22/2023 Do you belong to any clubs o r organizations such as jain groups, unions, fraternal or athletic groups, or [...] Total Score - Questions 1-9 0 05/05 [facility] - Occupational Stress Questionnaire Answer Date [...] place to sleep or slept in a long term (including now)? No 05/22/2023 Education Answer Date [...] Type Provider Dept 05/24/23 Office Visit Danny vIan MD [facility] 02/22/23 Office Visit [...] Description 12/11/2024 9:40 AM CDT Office Visit [facility] - Primary Care - [place] [address] [place] [address] Danny Ivan MD [address] [place] [address] documented as of this encounter Visit Diagnoses Not on filedocumented in this encounter Additional Health Concerns Assessment Noted Time PHQ-9 Depression Total Score: 0 05/24/19 24 10:53 AM CDT documented as of this encounter Care Teams Press Setter Relationship Specialty Start Date End Date Danny Ivan MD PCP - General Internal Medicine 05/26/21 documented as of this encounter
--- OUTSIDE RECORDS SUMMARY | 2024-10-29 10:11 | XMS_ITS | Clinical Summary ---
Author Organization [facility] Address [address] [place] [address] Care Team Providers Care Conference Manager Name Role Phone Radha Padron MD Primary Care Provider [phone] Source Comments [facility],non-owned Affiliates and Associated Physician Practices is amultiple site organization consisting of ambulatory clinics and hospital sitesin [place], [place], [place] and [place]. This disclosure is being madepursuant to the Care Everywhere program and may not contain all information available regarding this patient. 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 Gender Identity Not on file Sexual Orientation [...] VACCINE ( - 2023-2 5 season) 2023 DEPRESSION SCREENING 03/06/2024 INFLUENZA VACCINE (#1) 2024 Respiratory Syncytial Virus (RSV) Vaccine Pt: or [...] to complete this topic MENINGOCOCCAL (Group B) VACC INE SHARED DECISION-MAKING Aged Out No longer eligibl e based on patient's age to complete this topic MENINGOCOCCAL GROUPS A/C/Y/W VACCINE Aged Out No longer eligible b ased on patient's age to complete this topic Insurance [employer] Care Teams Conference Manager Relationship Specialty [place] [id number] [address] PCP - General 04/20/08
--- OUTSIDE RECORDS SUMMARY | 2024-10-29 10:11 | XMS_ITS | Encounter Summary ---
Author Organization [facility] Address [address] [place] [address] Phone Care Team Providers Care Jukebox Route Driver Name Role Phone Danny Ivan MD Primary Care Provider [phone] Reason for Visit * Reason Comments Medication Refill Encounter Details Date Type Department Care Team (Late st Contact Info) Description 07/03/2022 Refill [facility] - [place] [address] [place] [address] Danny Ivan MD [address] [place] [address] Medication Refill Social History Tobacco [...] Dept 04/14/22 Office Visit Danny Ivan MD [facility] [place] 01/26/22 Office Visit Danny Ivan MD [facility] 01/06/22 Office Visit Danny Ivan MD [facility] [place] 10/06/21 Office Visit Danny Ivan MD [facility] 07/08/21 Office Visit Kimmy Cameron PAC [facility] Showing recent visits within past 365 days and meeting all other requirements Future Appointments Date Type Provider Dept 07/14/22 Appointment Danny Ivan MD [facility] Showing future appointments within next 90 days [...] Office Visit Danny Ivan MD [facility] [place] 01/26/22 Office Visit Danny Ivan MD [facility] [place] 01/06/22 Office Visit Danny Ivan MD [facility] [place] 10/06/21 [facility] [place] 07/08/21 Office Visit Kimmy Cameron [facility] [place] Showing recent visits within past 365 days and meeting all other requirements Future Appointments Date Type Provider Dept 07/14/22 Appointment Danny Ivan MD [facility] [place] Showing future appointments within next 90 days and meeting all other requirements documented in this encounter Plan of Treatment Upcoming Encounters Date Type Department Care Team (Late st Contact Info) Description 12/11/2024 9:40 AM CDT [facility] - [place] [address] [place] [address] Danny Ivan MD [address] [place] [address] documented as of this encounter Visit Diagnoses Not on filedocumented in this encounter Care Teams Jukebox Route Driver Relationship Specialty Start Date End Date Danny Ivan MD PCP - General Internal Medicine 05/26/21 documented as of this encounter
--- OUTSIDE RECORDS SUMMARY | 2024-10-29 10:11 | XMS_ITS | Encounter Summary ---
Author Organization [facility] Address [address] [place] [address] Phone Care Team Providers Care Waste/Materials Exchange Specialist Name Role Phone Danny Ivan MD Primary Care Provider [phone] Reason for Visit * Reason Comments Medication Refill Encounter Details Date Type Department Care Team (Late st Contact Info) Description 04/03/2022 Refill [facility] - [place] [address] [place] [address] Danny Ivan MD [address] [place] [address] Medication Refill Social History Tobacco [...] Dept 01/26/22 Office Visit Danny Ivan MD [facility] [place] 01/06/22 Office Visit Danny Ivan MD [facility] [place] 10/06/21 Office Visit Danny Ivan MD [facility] [place] 07/08/21 Office Visit Kimmy Cameron, PAC [facility] [place] 06/24/21 Office Visit Kimmy Cameron, PAC [facility] [place] 06/18/21 Office Visit Kimmy Cameron, PAC [facility] [place] 06/14/21 Office Visit Danny Ivan MD [facility] [place] Showing recent visits within past 365 days and meeting all other requirements Future Appointments Date Type Provider Dept 04/14/22 Appointment Danny Ivan MD [facility] [place] Show[facility] future appointments within next 90 days [...] Office Visit Danny Ivan MD [facility] [place] 01/06/22 Office Visit Danny Ivan MD [facility] [place] 10/06/21 Office Visit Danny Ivan MD [facility] [place] 07/08/21 Office Visit Rakesh Kimmydaniele Vuong, PAC [facility] [place] 06/24/21 Office Visit Rakesh, Kimmy Carolann, PAC [facility] [place] 06/18/21 Office Visit Kimmy Cameron, PAC [facility] [place] 06/14/21 Office Visit Danny Ivan MD [facility] [place] Showing recent visits within past 365 days and meeting all other requirements Future Appointments Date Type Provider Dept 04/14/22 Appointment Danny Ivan MD [facility] [place] [facility] future appointments within next 90 days and meeting all other requirements [employer] DEAN documented in this encounter Plan of Treatment Upcoming Encounters Date Type Department Care Team (Late st Contact Info) Description 12/11/2024 9:40 AM CDT Office Visit [facility] - Primary Care - [place] [address] [place] [address] Danny Ivan MD [address] [place] [address] documented as of this encounter Visit Diagnoses Not on filedocumented in this encounter Care Teams Waste/Materials Exchange Specialist Relationship Specialty Start Date End Date Danny Ivan MD PCP - General Internal Medicine 05/26/21 documented as of this encounter
--- OUTSIDE RECORDS SUMMARY | 2024-10-29 10:11 | XMS_ITS | Encounter Summary ---
Author Organization [facility] Address [address] [place] [address] Phone Care Team Providers Care Quality Assurance Consultant Name Role Phone Danny Ivan MD Primary Care Provider [phone] Reason for Visit * Reason Comments Medication Refill Encounter Details Date Type Department Care Team (Late st Contact Info) Description 05/20/2022 Refill [facility] - [place] [address] [place] [address] Danny Ivan MD [address] [place] [address] Medication Refill Social History Tobacco [...] order placed on 04/14/2022 8:38 AM Order [id number]: naproxen (NAPROSYN) 250 MG Tablet (For orders [...] Office Visit Danny Ivan MD [facility] [place] 01/26/22 Office Visit Danny Ivan MD [facility] [place] 01/06/22 Office Visit Danny Ivan MD [facility] [place] 10/06/21 Office Visit Danny Ivan MD [facility] [place] 07/08/21 Office Visit Kimmy Cameron, [facility] [place] 06/24/21 Office Visit Kimmy Cameron, [facility] [place] 06/18/21 Office Visit Kimmy Cameron, [facility] [place] 06/14/21 Office Visit Danny Ivan MD [facility] [place] Showing recent visits within past 365 days and meeting all other requirements Future Appointments Date Type Provider Dept 07/14/22 Appointment Danny Ivan MD [facility] [place] Showing future appointments within next 90 days and meeting all other requirements documented in this encounter Plan of Treatment Upcoming Encounters Date Type Department Care Team (Late st Contact Info) Description 12/11/2024 9:40 AM CDT Office Visit [facility] - Primary Care - [place] [address] [place] [phone] Danny Ivan MD [address] [place] [address] documented as of this encounter Visit Diagnoses Not on filedocumented in this encounter Care Teams Quality Assurance Consultant Relationship Specialty Start Date End Date Danny Ivan MD PCP - General Internal Medicine 05/26/21 documented as of this encounter
--- OUTSIDE RECORDS SUMMARY | 2024-10-29 10:11 | XMS_ITS | Encounter Summary ---
Author Organization [facility] Address [address] [place] [address] Phone Care Team Providers Care Gas Welder Apprentice Name Role Phone Danny Ivan MD Primary Care Provider [phone] Reason for Visit * Reason Comments Medication Refill Encounter Details Date Type Department Care Team (Late st Contact Info) Description 12/29/2022 [facility]ill [facility] - [place] [address] [place] [address] Danny Ivan MD [address] [place] [address] Medication Refill Social History Tobacco [...] 11/23/22 Office Visit Danny Ivan MD [facility] [place] 07/14/22 Office Visit Danny Ivan MD [facility] [place] 04/14/22 Office Visit Danny Ivan MD [facility] [place] 01/26/22 Office Visit Danny Ivan MD [facility] [place] 01/06/22 Office Visit Danny Ivan MD [facility] [place] Showing recent visits within past 365 days and meeting all other requirements Future Appointments Date Type Provider Dept 02/22/23 Appointment Danny Ivan MD [facility] [place] Showing future appointments within next 90 days [...] 11/23/22 Office Visit Danny Ivan MD [facility] [place] 07/14/22 Office Visit Danny Ivan MD [facility] [place] 04/14/22 Office Visit Danny Ivan MD [facility] [place] 01/26/22 Office Visit Danny Ivan MD [facility] [place] 01/06/22 Office Visit Danny Ivan MD [facility] [place] Showing recent visits within past 365 days and meeting all other requirements Future Appointments Date Type Provider Dept 02/22/23 Appointment Danny Ivan MD [facility] [place] Showing future appointments within next 90 days and meeting all other requirements documented in this encounter Plan of Treatment Upcoming Encounters Date Type Department Care Team (Late st Contact Info) Description 12/11/2024 9:40 AM CDT Office Visit [facility] - Primary Care - [place] [address] [place] [address] Danny Ivan MD [address] [place] [address] documented as of this encounter Visit Diagnoses Not on filedocumented in this encounter Care Teams Gas Welder Apprentice Relationship Specialty Start Date End Date Danny Ivan MD PCP - General Internal Medicine 05/26/21 documented as of this encounter
--- OUTSIDE RECORDS SUMMARY | 2024-10-29 10:11 | XMS_ITS | Encounter Summary ---
Author Organization [facility] Address [address] [facility] [place] [place] [address] Phone Care Team Providers Care Road Oiler Name Role Phone Danny Ivan MD Primary Care Provider [phone] Reason for Visit * Reason Comments Medication Refill Encounter Details Date Type Department Care Team (Late st Contact Info) Description 05/22/2023 Refill [facility] - Internal Medicine - [place] [address] [place] [address] Danny Ivan MD [address] [place] [address] Medication Refill Social History Tobacco Use Types Packs/Day Years Used Date Smoking Tobacco: Never Passive Smoke Exposure: Never Smokeless Tobacco: Never Alcohol Use Standard Drinks/Week Comments Not Currently 0 (1 standard drink = 0.6 oz pur e alcohol) [facility] Utilities Answer Date Recorded In the past 12 months has [employer], gas, oil, or water [employer] threatened to shut off services in your home? No 05/22/2023 Social Connection and Isolation Panel Answer Date Recorded In a typical week, how many times do you talk on the phone with family, friends, or neighbors? Patient declined 05/22/2023 How often do you get togethe r with friends or relatives? Patient declined 05/22/2023 How often do you attend jain or druze serv ices? Patient declined 05/22/2023 Do you [...] Total Score - Questions 1-9 0 05/05 [facility] - Occupational Stress Questionnaire Answer Date [...] place to sleep or slept in a fci (including now)? No 05/22/2023 Education Answer Date [...] as of this encounter Functional Status * AUDIT-C Score Answer Date of Assessment Author 0 05/22/2023 5:26 PM CDT [employer], System Background * Q1: How often do you have a drink containing alcohol? Answer Date of Assessment Author Never 05/22/2023 5:26 PM CDT [employer] [employer] Background * Q2: How many drinks containing alcohol do you have on a typical day when you are drinking? Answer Date of Assessment Author Patient does not drink 05/22/2023 5:26 PM CDT [facility] Background * Q3: How often do you have six or more drinks on one occasion? Answer Date of Assessment Author Never 05/22/2023 5:26 PM CDT [employer] Background * Question Answer Date of Assessment Author Little interest or pleasure in doing things Not at all 05/24/2023 10:53 AM ANDRET Patti Peña CMA Feeling down, depressed, or hopeless Not at all 05/24/2023 10:53 AM CDT Meli Peña CMA * Over the past 2 weeks, how often have you been bothered by any of the following problems? Question Answer Date of Assessment Author Patient Health Questionnaire -2 Score 0 05/24/2023 10:53 AM ANDRET Meli Peña CMA documented as of this [...] Dept 02/22/23 Office Visit [facility] [place] 11/23/22 Office Visit [facility] [place] Showing recent visits within past 182 days and meeting all other requirements Future Appointments Date Type Provider Dept 05/24/23 Appointment Danny Ivan MD [facility] [place] Showing future appointments within next 90 days and meeting all other requirements documented in this encounter Plan of Treatment Upcoming Encounters Date Type Department Care Team (Late st Contact Info) Description 12/11/2024 9:40 AM CDT Office Visit [facility] - Primary Care - [place] [address] [place] [phone] Danny Ivan MD [address] [place] [address] documented as of this encounter Visit Diagnoses Not on filedocumented in this encounter Care Teams Road Oiler Relationship Specialty Start Date End Date Danny Ivan MD PCP - General Internal Medicine 05/26/21 documented as of this encounter
--- OUTSIDE RECORDS SUMMARY | 2024-10-29 10:11 | XMS_ITS | Encounter Summary ---
Author Organization [facility] Address [address] [facility] [place] [address] Phone Care Team Providers Care Bsw Name Role Phone Danny Ivan MD Primary Care Provider [phone] Reason for Visit * Reason Comments Medication Refill Encounter Details Date Type Department Care Team (Late st Contact Info) Description 07/28/2023 Refill [facility] - Internal Medicine - [place] [address] [place] [address] Danny Ivan MD [address] [place] [address] Medication Refill Social History Tobacco Use Types Packs/Day Years Used Date Smoking Tobacco: Never Passive Smoke Exposure: Never Smokeless Tobacco: Never Alcohol Use Standard Drinks/Week Comments Not Currently 0 (1 standard drink = 0.6 oz pur e alcohol) [facility] Utilities Answer Date Recorded In the past 12 months has [employer], gas, oil, or water [employer] threatened to shut off services in your home? No 05/22/2023 Social Connection and Isolation Panel Answer Date Recorded In a typical week, how many times do you talk on the phone with family, friends, or neighbors? Patient declined 05/22/2023 How often do you get togethe r with friends or relatives? Patient declined 05/22/2023 How often do you attend synagogue or yazidism serv ices? Patient declined 05/22/2023 Do you belong to any clubs o r organizations such as synagogue groups, unions, fraternal or athletic groups, or [...] Total Score - Questions 1-9 0 05/05 [facility] - Occupational Stress Questionnaire Answer Date [...] place to sleep or slept in a correction (including now)? No 05/22/2023 Education Answer Date [...] Office Visit Danny Ivan MD [facility] [place] 02/22/23 Office Visit Danny Ivan MD [facility] [place] 11/23/22 Office Visit Danny Ivan MD [facility] [place] Showing recent visits within past 365 days and meeting all other requirements Future Appointments Date Type Provider Dept 09/05/23 Appointment Danny Ivan MD [facility] [place] Showing future appointments within next 90 days and meeting all other requirements documented in this encounter Plan of Treatment Upcoming Encounters Date Type Department Care Team (Late st Contact Info) Description 12/11/2024 9:40 AM CDT Office Visit [facility] - Primary Care - [place] [address] [address] Danny Ivan MD [address] [place] [address] documented as of this encounter Visit Diagnoses Not on filedocumented in this encounter Additional Health Concerns Assessment Noted Time PHQ-9 Depression Total Score: 0 05/24/19 10:53 AM CDT documented as of this encounter Care Teams Bsw Relationship Specialty Start Date End Date Danny Ivan MD PCP - General Internal Medicine 05/26/21 documented as of this encounter
--- OUTSIDE RECORDS SUMMARY | 2024-10-29 10:11 | XMS_ITS | Clinical Summary ---
Author Organization [facility] Address [address] [place] [address] Phone Care Team Providers Care Smelter Liner Name Role Phone Danny Ivan MD Primary [...] Apply 2 times daily. 10/18/19 24 Active hydrOXYzine (ATARAX) 25 MG Tablet Take 1 Tablet by mouth nightly as needed for Anxiety. 90 Tablet 01/23/20 24 Active furosemide (LASIX) 20 MG Tablet TAKE 1 TABLET BY MOUTH EVERY DAY 90 Tablet 1 07/20/19 25 Active atenolol (TENORMIN) 25 MG Tablet TAKE 1 TABLET BY MOUTH EVERY DAY 90 Tablet 1 08/06/19 25 Active allopurinol (ZYLOPRIM) 100 MG Tablet TAKE 1 TABLET BY MOUTH EVERY DAY 90 Tablet 1 08/29/19 25 Active Ozempic, 2 MG/DOSE, 8 MG/3ML Solution Pen-injector INJECT 2MG UNDER THE SKIN ONCE A WEEK 3 mL 3 10/02/19 25 Active cyclobenzapri ne (FLEXERIL) 10 MG Tablet Take 1 Tablet by mouth 3 times daily as needed for Muscle spasms. 42 Tablet 10/26/19 25 Active Ozempic, 2 MG/DOSE, 8 MG/3ML Solution Pen-injector 2 MG BY SUBCUTANEOUS ROUTE ONCE A WEEK. 3 mL 3 07/03/19 25 025 Discontinued cyclobenzapri ne (FLEXERIL) 10 MG Tablet Take 1 Tablet by mouth 3 times daily as needed for Muscle spasms. 42 Tablet 09/11/19 25 025 Discontinued(Stephanie lemus) Active Problems Problem Noted Date Diagnosed Date History of colon polyps 03/12/2024 Chronic pain of left ankle 05/24/2023 Nodule of left lung 02/22/2023 Onychomadesis of toenail 07/14/2022 Hyperuricemia 07/14/2022 Type 2 diabetes mellitus wit hout complication, without long-term current use of insulin 10/06/2021 Essential hypertension, benign 10/06/2021 Mixed hyperlipidemia 10/06/2021 Osteoarthritis, generalized 10/06/2021 Resolved Problems Problem Noted Date Diagnosed Date Resolved Date Generalized anxiety disorder 05/24/2023 09/10/2024 Transaminasemia 10/06/2021 09/05/2023 Encounters Date Type Department Care Team Description 10/25/2024 [facility] [address] [place] [address] Danny Ivan MD Medication Refill 10/25/2024 Refill [facility] [address] [place] [address] Kimmy Cameron PAC Medication Refill 10/01/2024 [facility] [address] [place] [address] Danny Ivan MD Medication Refill 09/10/2024 10:20 AM CDT Office Visit [address] [place] [phone] Danny Ivan MD Type 2 diabetes mellitus without complication, without long-term current use of insulin (Primary Dx); Essential hypertension, benign; Mixed hyperlipidemia; Hyperuricemia Discharge Disposition: Discharged to home or Selfcare 09/08/2024 Travel 08/28/2024 [facility] [address] [place] [address] Danyn Ivan MD Medication Refill 08/05/2024 [facility] [address] [place] [address] Danny Ivan MD Medication Refill 08/04/[address] [place] [phone] Danny Ivan MD Medication Refill from Last 3 Months Immunizations Immunization Administration Dates Next Due Pneumococcal conjugate PCV20 , polysaccharide FBD494 conjugate, adjuvant, PF 10/06/2021 Family History Medical [...] drink = 0.6 oz pur e alcohol) [facility] Utilities Answer Date Recorded In the past 12 months has [employer], gas, oil, or water [employer] threatened to shut off services in your home? No 06/08/2024 Social Connection and Isolation Panel Answer Date Recorded In a typical week, how many times do you talk on the phone with family, friends, or neighbors? More than three times a week 06/08/2024 How often do you get togethe r with friends or relatives? Twice a week 06/08/2024 How often do you attend [facility] or bahai services? Patient declined 06/08/2024 Do you belong to any clubs o r organizations such as quaker groups, unions, fraternal or athletic groups, or school groups? Patient declined 06/08/2024 How often do you attend meet ings of the clubs or organizations you belong to? Patient declined 06/08/2024 Are you , , di vorced, , never , or living with a partner? 06/08/2024 AUDIT-C Answer Date Recorded Q1: How often do you have a drink containing alc ohol? Monthly or less 06/08/2024 Q2: How many drinks containi ng alcohol do you have on a typical day when you are drinking? 1 or 2 06/08/2024 Q3: How often do you have si x or more drinks on one occasion? Never 06/08/2024 Overall Financial Resource Strain (CARDIA) Answe r Date Recorded How hard is it for you to pa y for the very basics like food, housing, medical care, and heating? Not hard at all 06/08/2024 PHQ-2 Answer Date Recorded Total Score - Questions 1-9 0 09/2024 [facility] - Occupational Stress Questionnaire Answer Date Recorded Do you feel stress - tense, restless, nervous, or anxious, or unable to sleep at night because your mind is troubled all the time - these days? Patient declined 06/08/2024 Exercise Vital Sign Answer Date Recorde d On average, how many days pe r week do you engage in moderate to strenuous exercise (like a brisk walk)? 3 days 06/08/2024 On average, how many minutes do you engage in exercise at this level? 20 min 06/08/2024 Hunger Vital Sign Answer Date Recorded Within the past 12 months, y ou worried that your food would run out before you got the money to buy more. Never true 06/09/19 25 Within the past 12 months, t he food you bought just didn't last and you didn't have money to get more. Never true 06/08/2024 PRAPARE - Transportation Answer Date Re corded In the past 12 months, has l ack of transportation kept you from medical appointments or from getting medications? No 07/2024 In the past 12 months, has l ack of transportation kept you from meetings, work, or from getting things needed for daily living? No 06/08/2024 Housing Stability Vital Sign Answer Travis e [...] place to sleep or slept in a longterm (including now)? No 05/22/2023 Housing Stability Vital Sign Answer Travis e Recorded In the last 12 months, was t here a time when you were not able to pay the mortgage or rent on time? No 06/08/2024 Number of Times Moved in the Last Year Not on fi le 06/08/2024 At any time in the past 12 m [facility], were you homeless or living in a longterm (including now)? No 06/08/2024 Education Answer Date Recorded What is the [...] Sign Reading Time Taken Comments Blood Pressure 122/58 09/10/2024 10:21 AM CDT Pulse 92 09/10/2024 10:21 AM CDT Temperature 36.5 C (97.7 F) 09/10/2024 10:21 AM CDT Respiratory Rate 12 12/07/2023 10:19 AM CDT Oxygen Saturation 95% 09/10/2024 10:21 AM CDT Inhaled Oxygen Concentration - - Weight 96.6 kg (213 lb) 09/10/2024 10:21 AM CDT Height 170.2 cm (5' 7) 09/10/2024 10:21 AM CDT Body Mass Index 33.36 09/10/2024 10:21 AM CDT Plan of Treatment Upcoming Encounters Date Type Department Care Team (Late st Contact Info) Description 12/11/2024 9:40 AM CDT Office Visit [facility] - Primary Care - [place] [address] [place] [phone] Danny Ivan MD [address] [place] [address] Health Maintenance Due Date Last Done Comments DEXA Bone Density 1955 Hepatitis C Virus (HCV) Screening 1955 Cologuard 2001 Immunochemical Fecal Occult Blood 2001 Zoster Immunization (1 of 2) 2006 SARS-COV-2 Immunization ( season) 2023 02/19/2021, 01/29/2021 Diabetes: Eye Exam 12/16/2023 12/15/2022, 12/12/2022 Colonoscopy 01/21/2024 Colorectal Cancer Screening 01/21/2024 Diabetes: Hemoglobin A1c 12/10/2024 025, 03/08/2024, 12/07/2023, Additional history exists Diabetes: Nephropathy Screening 03/08/2025 03/08/2024, 02/21/2023, 11/05/2022, Additional history exists Diabetes: Foot Exam 06/10/2025 06/10/2024, Mammogram 06/14/2025 06/14/2024, 12/04, 04/19/2021 Respiratory Syncytial Virus (RSV) Immunization (Adult) (1 - 1-dose 75+ series) 07/23/2031 TdaP Immunization Completed 11/19/2014 DTaP/Tdap/Td Immunization Discontinued 11/22/2014, Pneumococcal Immunization (50+ years) Completed 10/06/2021 Pneumococcal Immunization Combined Discontinued 10/06/2021 Hepatitis B Immunization Aged Out No longer eligible based on patient's age to complete this topic Human Papillomavirus (HPV) Immunization Aged Out No longer eligible based on patient's age to complete this topic Influenza Immunization Discontinued Meningococcal Immunization (ACWY) Aged Out No longer eligible based on patient's age to complete this topic Rotavirus Immunization Aged Out No lo nger eligible based on patient's age to complete this topic Procedures Procedure Name Priority Date/Time Associated Diagnosis Comments LATISHA SCREENING BILATERAL DIGITAL W CAD W SHEIR Routine 06/14/2024 8:00 AM CDT Breast cancer screening by mammogram POCT GLYCOSYLATED HEMOGLOBIN Routine 06/10/2024 10:54 AM CDT Type 2 diabetes mellitus without complication, without long-term current use of insulin CMP (COMPREHENSIVE METABOLIC PANEL) Routine 03/08/2024 Type 2 diabetes mellitus without complication, without long-term current use of insulin (HCC) Mixed hyperlipidemia HM DILATED EYE EXAM 12/15/2022 1 2:00 AM CDT from Last 3 Months or Most Recently Relevant to Health Maintenance Results * LATISHA SCREENING BILATERAL DIGITAL W CAD W SHERI (06/14/2024 8:00 AM CDT) Anatomical Region Laterality Modality breast Bilateral Mammography 06/14/2024 11:0 1 AM CDT Narrative 06/14/2024 2:20 PM CDT - LATISHA SCREENING BILATERAL DIGITAL W CAD W SHERI BILATERAL DIGITAL SCREENING MAMMOGRAM 3D/2D WITH CAD WITH MEDIOLATERAL OBLIQUE CRANIOCAUDAL: 06/14/2024 The study was acquired using digital technology and interpreted from soft copy. Current study was also evaluated with ICAD version 7.2. 2D digital mammographic views, as well as 3D digital tomosynthesis were performed in the CC and MLO projections. CLINICAL: Routine screening. Patient has no complaints. Patient reports 15 pound weight loss since last mammogram. No personal history of cancer. Sister with premenopausal breast cancer. Maternal aunt had breast cancer. COMPARISONS: Comparison is made to exams dated: 05/14/2021 [facility], 12/21/2022 [facility], 05/03/2021, and 12/06/2018 [facility]. BREAST TISSUE:There are scattered areas of fibroglandular density. FINDINGS: Loss of interstital fat correlates with reported history of significant interval weight loss. No significant masses, calcifications, or other findings are seen in either breast. There has been no significant interval change. IMPRESSION: BENIGN There is no mammographic evidence of malignancy. A 1 year screening mammogram is recommended. A letter will be sent to the patient with these results. The patient will be entered into a reminder system with a target due date of 1 year for her next screening exam. Electronically signed by: Melina rider/penrad:06/14/2024 12:40:21 Check Cashier(s): DEREK CalvinR)(M), [facility] letter sent: Normal Exam Reading location: [facility] Mammogram BI-RADS: Category 2: Benign Procedure Note Melina Ashby MD - 06/14/2024 - LATISHA SCREENING BILATERAL DIGITAL W CAD W SHERI BILATERAL DIGITAL SCREENING MAMMOGRAM 3D/2D WITH CAD WITH MEDIOLATERAL OBLIQUE CRANIOCAUDAL: 06/14/2024 The study was acquired using digital technology and interpreted from soft copy. Current study was also evaluated with ICAD version 7.2. 2D digital mammographic views, as well as 3D digital tomosynthesis were performed in the CC and MLO projections. CLINICAL: Routine screening. Patient has no complaints. Patient reports 15 pound weight loss since last mammogram. No personal history of cancer. Sister with premenopausal breast cancer. Maternal aunt had breast cancer. COMPARISONS: Comparison is made to exams dated: 05/14/2021 [facility], 12/21/2022 [facility], 05/03/2021, and 12/06/2018 [facility]. BREAST TISSUE:There are scattered areas of fibroglandular density. FINDINGS: Loss of interstital fat correlates with reported history of significant interval weight loss. No significant masses, calcifications, or other findings are seen in either breast. There has been no significant interval change. IMPRESSION: BENIGN There is no mammographic evidence of malignancy. A 1 year screening mammogram is recommended. A letter will be sent to the patient with these results. The patient will be entered into a reminder system with a target due date of 1 year for her next screening exam. Electronically signed by: Melina rider/penrad:06/14/2024 12:40:21 Check Cashier(s): RT Marixa(R)(M), [facility] letter sent: Normal Exam Reading location: [facility] Mammogram BI-RADS: Category 2: Benign us Danny Ivan MD IMG MAMMO ORDERABLES Final Result * (ABNORMAL) POCT GLYCOSYLATED HEMOGLOBIN (06/10/2024 10:54 AM CDT) HGB-A1C 6.6(A) 4 - 6 % 06/10/2024 10:5 4 AM CDT us Danny Ivan MD POINT OF CARE TESTING (MANU AL) Final Result * CMP (COMPREHENSIVE METABOLIC PANEL) (03/08/2024) Blood 03/08/2024 us Danny Ivan MD CHEMISTRY ORDERABLES Final Result SCAN * DILATED EYE EXAM (12/15/2022 12:00 AM CDT) 12/15/2022 us Provider Scan PROCEDURE/MINOR SURGICAL ORDERAB LES Final Result SCAN from Last 3 Months or Most Recently Relevant to Health Maintenance Insurance MEDICARE Care Teams Smelter Liner Relationship Specialty Start Date End Date Danny Ivan MD PCP - General Internal Medicine 05/26/21
--- OUTSIDE RECORDS SUMMARY | 2024-10-29 10:12 | XMS_ITS | Encounter Summary ---
Author Organization [facility] Address [address] [place] [address] Phone Care Team Providers Care Agricultural Equipment Operator Name Role Phone Danny Ivan MD Primary Care Provider +1- [phone] Reason for Visit * Reason Comments Medication Refill Encounter Details Date Type Department Care Team (Late st Contact Info) Description 09/08/2022 Refill [facility] - [facility] - [place] [address] [place] [address] Danny Ivan MD [address] [place] [address] Medication Refill Social History Tobacco [...] 04/14/22 Office Visit Danny Ivan MD [facility] [place] Showing recent visits within past 182 days and meeting all other requirements Future Appointments Date Type Provider Dept 10/17/22 Appointment Danny Ivan MD [facility] [place] Showing future appointments within next 90 days and meeting all other requirements Passed - HgA1C result on record in past 6 months HGB-A1C Date Value Ref Range Status 04/14/2022 8.4 (A) 4 - 6 Final documented in this encounter Plan of Treatment Upcoming Encounters Date Type Department Care Team (Late st Contact Info) Description 12/11/2024 9:40 AM CDT Office Visit [facility] - [facility] Care - [place] [address] [place] [id number] Danny Ivan MD [address] [place] [address] documented as of this encounter Visit Diagnoses Not on filedocumented in this encounter Care Teams Agricultural Equipment Operator Relationship Specialty Start Date End Date Danny Ivan MD PCP - General Internal Medicine 05/26/21 documented as of this encounter
--- OUTSIDE RECORDS SUMMARY | 2024-10-29 10:12 | XMS_ITS | Encounter Summary ---
Author Organization [facility] Address 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 de Phone Number INTERFACE SYSTEM Refer to [...] ORDERA BLES Final Result Performing Organization Address [facility] de Phone Number INTERFACE SYSTEM Refer to [...] ORDERABLES Final Re sult Performing Organization Address [facility] Phone Number INTERFACE SYSTEM Refer to [...] ORDERABLES Final Re sult Performing Organization Address [facility] Phone Number INTERFACE SYSTEM Refer to clinic/hospital department * POC , URINE (06/21/2005 7:04 AM CDT) HCG QUAL URINE Negative Negative INTER FACE SYSTEM SPECIFIC GRAVITY UA 1.020 1.001 - 1.035 INTERFACE SYSTEM 06/21/2005 7:04 AM CDT us James Monroe MD POINT OF CARE TESTING Final Re sult Performing Organization Address [facility] Phone Number INTERFACE SYSTEM Refer to [...] ORDERABLES Final Res ult Performing Organization Address [facility] Phone Number INTERFACE SYSTEM Refer to clinic/hospital department * HEMOGLOBIN AND HEMATOCRIT (06/17/2005 10:10 AM CDT) HEMOGLOBIN 12.9 11.8 - 14.8 g/dL INTERFACE SYSTEM HEMATOCRIT 39.3 35.5 - 44.0 % INTERFACE SYSTEM 06/17/2005 10:1 0 AM CDT us James Monroe MD HEMATOLOGY ORDERABLES Final Re sult Performing Organization Address [facility] Co de Phone Number INTERFACE SYSTEM Refer to clinic/hospital department documented in this encounter Visit Diagnoses Diagnosis Intramural leiomyoma of uterus- Primary documented in this encounter
--- OUTSIDE RECORDS SUMMARY | 2024-10-29 10:12 | XMS_ITS | Encounter Summary ---
Author Organization [facility] Address [address] [place] [address] Care Team Providers Care Die Operator Name Role Phone Unavailable Primary Care Provider Unavailabl e Encounter Details Date Type Department Care Team (Latest Contact Info) Description 06/20/2007 Outpatient Historical [facility] JOSE E Keith, [place] [address] 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, [place] [address] Admit Date: 06/20/2007 SUSU BALDERAS Sex: F Admit Prov: MARCO KEITH Date: 1955 Primary Care Prov: ANNETTE ELLIS CMRN: [id number] Room: [facility]: [id number] IMAGING SERVICES Ordering Prov: N/A Accession Number: [id number] Interpretation CHEST 2 VIEWS, 06/20/2007 Clinical History: Hypertension and respiratory symptoms. PA and lateral views of the chest on 06/20/2007 without prior films for comparison demonstrates the cardiomediastinal silhouette and pulmonary vasculature to be within normal limits. Lungs are clear of acute processes. No effusions or pneumothoraces are evident. Impression: No acute disease. . Dictated by: ROSEANN SLAUGHTER 06/20/2007 12:47 Electronically signed by: ROSEANN SLAUGHTER06/20/2007 16:37 Transcribed: 06/20/2007 16:36 SMM Procedure Note Roseann Slaughter MD - 06/20/2007 [facility] [address] [place], [place] [address] Admit Date: 06/20/2007 SUSU BALDERAS Sex: F Admit Prov: MARCO KEITH Date: 1955 Primary Care Prov: ANNETTE ELLIS CMRN: [id number] [facility] [id number] IM[facility]ING SERVICES Ordering Prov: N/A Interpretation CHEST [...] CDT) BUN 11 6 - 20 mg/dL [facility] CHLORIDE 98 96 - 108 mmol/L [facility] GLUCOSE 86 65 - 99 mg/dL [facility] SODIUM 137 135 - 145 mmol/L [facility] CALCIUM 9.2 8.4 - 10.2 mg/dL [facility] CO2 26 22 - 30 mmol/L [facility] CREATININE 0.77 0.51 - 0.95 mg/dL [facility] POTASSIUM 4.0 3.5 - 4.9 mmol/L [facility] GFR, >60 >=60 mL/min/1.7 sq meter [facility] GFR >60 >=60 mL/min/1.7 sq meter [facility] Comment: Estimated GFR rate interpretative information for both Americans and non- Americans is available on the [facility] Intranet at: [email or web address] Select: Lab Policies and Procedures Select: Reference Ranges - GFR Blood specimen (specimen) 06/20/2007 12:20 PM CDT 06/20/2007 1:13 PM CDT Marco Keith MD CHEMISTRY ORDERABLES Edited [facility] [address] [place], [place] [address] * (ABNORMAL) CBC WITH DIFFERENTIAL (06/20/2007 12:20 PM CDT) Pathologist [facility] HEMATOCRIT 41.3 35.5 - 44.0 % [facility] RDW-STDEV 48.0 37.1 - 48.7 fL [facility] RBC 4.37 3.90 - 4.90 M/uL [facility] MCHC 32.0 31.5 - 35.5 % [facility] MCV 94.5 82.0 - 99.0 fL [facility] PLATELETS 354(H) 140 - 350 K/uL [facility] HEMOGLOBIN 13.2 11.8 - 14.8 g/dL [facility] RDW 13.9 11.5 - 14.5 % [facility] WBC 10.0(H) 4.0 - 9.8 K/uL [facility] MCH 30.2 27.2 - 32.6 pg [facility] MPV 9.3 9.3 - 12.4 fL [facility] MONOCYTES 6 3 - 13 % [facility] MONOCYTE ABSOLUTE 0.64 0.10 - 1.30 K/uL [facility] NEUTROPHILS 58 45 - 70 % [facility] NEUTROPHIL ABSOLUTE 5.83 1.90 - 7.00 K/uL [facility] EOSINOPHILS 2 0 - 7 % [facility] EOSINOPHIL ABSOLUTE 0.24 0.00 - 0.70 K/uL [facility] LYMPHOCYTES 33 16 - 45 % [facility] LYMPHOCYTE ABSOLUTE 3.26 0.70 - 4.50 K/uL [facility] BASOPHILS 0 0 - 2 % [facility] BASOPHILS ABSOLUTE 0.04 0.00 - 0.20 K/uL [facility] Blood specimen (specimen) 06/20/2007 12:20 PM CDT 06/20/2007 1:25 PM CDT us Marco Keith MD HEMATOLOGY ORDERABLES Edited INTERFACE SYSTEM Refer to clinic/hospital department [facility] [address] [place] [address] documented in this encounter Visit Diagnoses Diagnosis Essential hypertension, benign documented in this encounter
--- OUTSIDE RECORDS SUMMARY | 2024-10-29 10:12 | XMS_ITS | Clinical Summary ---
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
--- OUTSIDE RECORDS SUMMARY | 2024-10-29 10:12 | XMS_ITS | Encounter Summary ---
Author Organization [facility] Address [address] [place] [address] Phone Care Team Providers Care Rate Quoting Operator Name Role Phone Danny Ivan MD Primary Care Provider [phone]- [phone] Reason for Visit * Reason Comments Medication Refill Encounter Details Date Type Department Care Team (Late st Contact Info) Description 01/06/2022 Refill [facility] - [place] [address] [place] [address] Danny Ivan MD [address] [place] [address] Medication Refill Social History Tobacco [...] order placed on 12/29/2021 9:42 AM Order [id number]: naproxen (NAPROSYN) 250 MG Tablet (For orders [...] Dept 01/06/22 Office Visit [facility] [place] 10/06/21 Office Visit Danny Ivan MD [facility] [place] 07/08/21 Office Visit Kimmy Cameron, [facility] [place] 06/24/21 Office Visit Kimmy Cameron, [facility] [place] 06/18/21 Office Visit Kimmy Cameron, [facility] [place] 06/14/21 Office Visit Danny Ivan MD [facility] [place] Showing recent visits within past 365 days [...] Dept 01/06/22 Office Visit Danny Ivan MD [facility] [place] 10/06/21 Office Visit Danny Ivan MD [facility] Showing recent visits within past 182 days [...] Description 12/11/2024 9:40 AM CDT Office Visit [facility] - Primary Care - [place] [address] [place] [address] Danny Ivan MD [address] [place] [address] documented as of this encounter Visit Diagnoses Not on filedocumented in this encounter Care Teams Rate Quoting Operator Relationship Specialty Start Date End Date Danny Ivan MD PCP - General Internal Medicine 05/26/21 documented as of this encounter
--- OUTSIDE RECORDS SUMMARY | 2024-10-29 10:12 | XMS_ITS | Encounter Summary ---
Author Organization [facility] Address [address] [place] [address] Care Team Providers Care Hydrologic Modeler Name Role Phone Unavailable Primary Care Provider Unavailabl e Encounter Details Date Type Department Care Team (Late st Contact Info) Description 06/17/2005 Outpatient Historical [facility]) [address] 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
--- OUTSIDE RECORDS SUMMARY | 2024-10-29 10:12 | XMS_ITS | Encounter Summary ---
Author Organization [facility] Address [address] [place] [address] Phone Care Team Providers Care Stave Block Splitter Name Role Phone Danny Ivan MD Primary Care Provider +1- [phone] Reason for Visit * Reason Comments Medication Refill Encounter Details Date Type Department Care Team (Late st Contact Info) Description 09/01/2022 Refill [facility] - [place] [address] [place] [address] Danny Ivan MD [address] [place] [address] Medication Refill Social History Tobacco [...] 07/14/22 Office Visit Danny Ivan MD [facility] [place] 04/14/22 Office Visit Danny Ivan MD [facility] [place] Showing recent visits within past 182 days and meeting all other requirements Future Appointments Date Type Provider Dept 10/17/22 Appointment Danny Ivan MD [facility] [place] Showing future appointments within next 90 days and meeting all other requirements Passed - HgA1C on record in past 6 months HGB-A1C Date Value Ref Range Status 04/14/2022 8.4 (A) 4 - 6 Final documented in this encounter Plan of Treatment Upcoming Encounters Date Type Department Care Team (Late st Contact Info) Description 12/11/2024 9:40 AM CDT Office Visit [facility] - Primary Care - [place] [address] [place] [address] Danny Ivan MD [address] [place] [address] documented as of this encounter Visit Diagnoses Not on filedocumented in this encounter Care Teams Stave Block Splitter Relationship Specialty Start Date End Date Danny Ivan MD PCP - General Internal Medicine 05/26/21 documented as of this encounter
--- OUTSIDE RECORDS SUMMARY | 2024-10-29 10:12 | XMS_ITS | Clinical Summary ---
Author Organization [address] Address [address] [place] [address] Care Team Providers Care Keymodule Assembly Machine Tender Name Role Phone Danny Ivan MD Primary Care Provider +1- [phone] Allergies Active Allergy Reactions Criticality Noted Date [...] Hypertriglyceridemia 04/17/2017 Polyp of colon 04/17/2017 Immunizations Immunization Administration Dates Next Due Pneumococcal Conjugate Pcv20 10/06/2021 Td, adsorbed 11/22/2014 Tdap 11/19/2014 Surgical History Surgery Date Site/Laterality Comments CARPAL TUNNEL RELEASE ANKLE SURGERY 03/06/2005 - 03/05/2006 ELBOW SURGERY 03/06/2005 - 03/05/2006 HYSTERECTOMY 03/06/2005 - 03/05/2006 Medical History Medical History Date Comments Arthritis Diabetes mellitus (HCC) Gout Hypertension Motion sickness 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, 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 Family History Medical History [...] on file Legal Sex Female 12:29 AM CHECK SERVICES CLERK Gender Identity Not on file Sexual Orientation Not on file Obstetrics History Last Filed Vital Signs Vital Sign Reading Time Taken Comments Blood Pressure 153/78 12/04/2023 9:33 AM CDT Pulse 78 12/04/2023 9:33 AM CDT Temperature 36.6 C (97.8 F) 12/04/2023 9:33 AM CDT Respiratory Rate 18 12/04/2023 9:33 AM CDT Oxygen Saturation 100% 12/04/2023 9:33 AM CDT Inhaled Oxygen Concentration - - Weight 107.4 kg (236 lb 12.8 oz) 12/04/2023 9:33 AM CDT Height 165.1 cm (5' 5) 12/04/2023 9:33 AM CDT Body Mass Index [...] of 2) 2006 Well Visit 65+ 2021 Breast Cancer Screening-Mammogram 12/22/2023 023, 12/21/2022 Fall Risk Assessment 01/17/2024 01/16/2023 Influenza Vaccine (#1) 2024 DTaP/Tdap/Td Vaccine (3 - Td or Tdap) 11/22/2024, 11/19/2014 Colon Cancer Screening-Colonoscopy 01/10/20292018 Colon Cancer Screening-CT Colonography Discontinued Colon Cancer Screening-DNA Stool Discontinued 01/11/20 Colon Cancer Screening-FIT Discontinued 01/10/2019 Colon Cancer Screening-Sigmoidoscopy Discontinued 09/2018 Pneumococcal vaccine 65+ Completed 10/06/2021 Procedures Procedure Name Priority Date/Time Associated Diagnosis Comments CT VIRTUAL COLONOSCOPY DIAGNOSTIC WO CONTRAST Schedule Routine, Read Routine (OP Routine) 01/10/2019 10:37 AM CHECK SERVICES CLERK Other specified congenital malformations of intestine from Last 3 Months or Most Recently Relevant to Health Maintenance Results * CT Colonoscopy Diagnostic WO Contrast (01/10/2019 10:37 AM CHECK SERVICES CLERK) Anatomical Region Laterality Modality Body N/A Computed Tomogra phy 01/10/2019 1:05 PM CHECK SERVICES CLERK Impressions 01/10/2019 2:41 PM CHECK SERVICES CLERK C1: Normal colon or benign lesion, continue routine screening. E4: Potentially important finding Dictated by: Vidal Escalante IV, M.D. The radiology attending physician has personally reviewed this study, and had reviewed and/or edited this written report and agrees with it. Electronically signed by: Pramod Abad M.D. Narrative 01/10/2019 2:41 PM CHECK SERVICES CLERK EXAMINATION: CT colonography without intravenous contrast HISTORY: [...] by: Pramod Abad M.D. Nando Phillips MD IM CT PROCEDURES Final Result from Last 3 Months or Most Recently Relevant to Health Maintenance Insurance [facility] [place] [id number] [place] [address] MEDICARE [place] [address] MEDICARE Care Teams Keymodule Assembly Machine Tender Relationship Specialty Start Date End Date Danny Ivan MD [address] [place] [address] PCP - General Internal Medicine 08/27/21
--- OUTSIDE RECORDS SUMMARY | 2024-10-29 10:12 | XMS_ITS | Encounter Summary ---
Author Organization [employer] Address [address] [place] [address] Care Team Providers Care Extermination Inspector Name Role Phone Unavailable Primary Care Provider Unavailabl e Encounter Details Date Type Department Care Team (Late st Contact Info) Description 04/19/2008 Emergency [facility] Er, Authorized P [...] on file Legal Sex Female 4:51 AM PROCESS STEWARD Gender Identity Not on file Sexual Orientation Not on file documented as of this encounter Plan of Treatment Not on file documented as of this encounter Procedures Procedure Name Priority Date/Time Associated Diagnosis Comments XR CHEST PA OR AP 1 VW Routine 9 7:[address] HEAD WO CONTRAST Routine 04/19/2008 6 :28 PM PROCESS STEWARD DRUG SCREEN, URINE Stat 04/19/2008 6: 05 PM PROCESS STEWARD URINALYSIS W/REFLEX MICROSCOPIC Stat 04/19/2008 6:05 PM PROCESS STEWARD TSH REFLEXIVE Stat 04/19/2008 5:35 PM PROCESS STEWARD TROPONIN (W/REFLEX CKMB/CK) Stat 04/19/2008 5:35 PM PROCESS STEWARD COMPREHENSIVE METABOLIC PANEL Stat 04/19/2008 5:35 PM PROCESS STEWARD ED HOLD Stat 04/19/2008 4:40 PM PROCESS STEWARD CBC WITH DIFFERENTIAL Stat 04/19/2008 4:40 PM PROCESS STEWARD documented in this encounter Results * XR CHEST PA OR AP (04/19/2008 7:20 PM PROCESS STEWARD) Anatomical Region Laterality Modality Chest Other 04/19/2008 7:20 PM PROCESS STEWARD Narrative 04/19/2008 7:43 PM PROCESS STEWARD [address] [address] Admit Date: 04/19/2008 NGA BALDERAS Sex: F Admit Prov: ER, AUTHORIZED P Date: 1955 Primary Care Prov: ANNETTE ELLIS CMRN: [id number] Room: ERA N: [id number] IMAGING SERVICES Ordering Prov: N/A Accession Number: [id number] Interpretation Exam: Portable chest. Examination April 19, 2008 at 1930 hours. History: Confusion. Shortness of breath. Heart and mediastinum are unremarkable. Lungs are clear. Impression: Negative portable chest. . Dictated by: MIKE CM 04/19/2008 19:42 Electronically signed by: MIKE CM 04/19/2008 19:42 Procedure Note Mike Cm - 04/19/[address] [address] Admit Date: 04/19/2008 NGA BALDERAS Sex: F Admit Prov: ER, AUTHORIZED P Date: 1955 Primary Care Prov: ANNETTE ELLIS CMRN: [id number] Room: ER-A N: [id number] IMAGING SERVICES Ordering Prov: N/A Interpretation Exam: Portable chest. Examination April 19, 2008 at 1930 hours. History: Confusion. Shortness of breath. Heart and mediastinum are unremarkable. Lungs are clear. Impression: Negative portable chest. . Dictated by: MIKE CM 04/19/2008 19:42 Electronically signed by: MIKE CM 04/19/2008 19:42 Alena Vernon MD DIAGNOSTIC IMAGING ORDERABLES Fi nal Result * CT HEAD WO CONTRAST (04/19/2008 6:28 PM PROCESS STEWARD) Anatomical Region Laterality Modality Head Other 04/19/2008 6:28 PM PROCESS STEWARD Narrative 04/19/2008 6:54 PM PROCESS STEWARD [facility] [address] [place] [address] Admit Date: 04/19/2008 TRAUMA, SKYLARK Sex: F Admit Prov: ER, AUTHORIZED P Date: Primary Care Prov: PCP, UNKNOWN CMRN: [id number] Room: ER-A SSN: IMAGING SERVICES Ordering Prov: N/A Accession Number: [id number] Interpretation Exam: CT the head without contrast. History: Patient fell. Patient hit head. Patient with confusion. Technique: CT of the head was performed without intravenous contrast. Continuous spiral imaging was performed through the head from above the vertex through the skull base. Images of the brain were reconstructed in the axial plane at 5 mm intervals. Bone and soft tissue windows were reviewed. Findings: The brain and ventricles are within normal limits. There is no hemorrhage, midline shift, mass-effect, or extra-axial fluid collection. Review of bone windows shows no depressed or displaced skull fracture. There is no aggressive bone lesion of the skull. Paranasal sinuses and mastoid air cells are clear. Impression: Negative unenhanced CT of the brain. . Dictated by: MIKE CM 04/19/2008 18:51 Electronically signed by: MIKE CM 04/19/2008 18:52 Procedure Note Mike Cm - 04/19/2008 [facility] [address] [place], [place] [address] Admit Date: 04/19/2008 TRAUMA, SKYLARK Sex: F Admit Prov: ZAIDA, AUTHORIZED P Date: Primary Care Prov: PCP, UNKNOWN CMRN: [id number] Room: ER-A SSN: IMAGING SERVICES Ordering Prov: N/A Interpretation [...] CT of the brain. . Dictated by: MIKE CM 04/19/2008 18:51 Electronically signed by: MIKE CM 04/19/2008 18:[address] us [address] MD CT ORDERABLES Final Result * (ABNORMAL) URINALYSIS (04/19/2008 6:05 PM PROCESS STEWARD) HYALINE CAST 1 0 - 2 /LPF [facility] LEUKOCYTE ESTERASE UA Negative Negative [facility] RBC UA 2 0 - 4 /HPF [facility] SPECIFIC GRAVITY UA 1.013 1.001 - 1.035 [facility] GLUCOSE UA Negative Negative [facility] BLOOD UA Negative Negative [facility] COLOR UA Yellow [facility] NITRITE UA Negative Negative [facility] EPITHELIAL CELLS, URINE 0-2 /HPF [facility] UROBILINOGEN UA <1 <=1 mg/dL [facility] PH UA 5.5 5.0 - 8.0 [facility] WBC UA 1 0 - 5 /HPF [facility] KETONES UA 2+(A) Negative [facility] CLARITY UA Clear Clear [facility] BILIRUBIN UA Negative Negative [facility] PROTEIN UA 1+(A) Negative [facility] Urine specimen (specimen) 04/19/2008 6:05 PM PROCESS STEWARD 04/19/2008 7:06 PM PROCESS STEWARD us Alena Vernon MD URINE ORDERABLES Final Result INTERFACE SYSTEM Refer to clinic/hospital department [facility] CLIA# [id number] [address] [place] [address] * DRUG SCREEN, URINE (04/19/2008 6:05 PM PROCESS STEWARD) COMMENT, TOXICOLOGY See Separate Comment [facility] Comment: Urine sample was not handled as a legal specimen and was received without a chain of custody. The result should be used only for medical purposes. False positive and erroneous results can occur due to cross-reacting substances and other factors. Depending on the clinical context, confirmation of all presumptive positive results by a more specific alternate method is recommended. A negative result indicates the analyte, if present, is below the screening threshold. Drug Ref. Range Screening Threshold Amphetamines Negative 1000 ng/mL Barbiturates Negative 200 ng/mL Benzodiazepines Negative 300 ng/mL Cannabinoids Negative 50 ng/mL Cocaine Metabolites Negative 300 ng/mL Opiates Negative 300 ng/mL Phencyclidine Negative 25 ng/mL The cut-off threshold, known cross-reactive compounds, drugs,and specificity information for each of the urine drugs of abuse are available on the [facility] Intranet at: [email or web address] Select: Lab Policies & Procedures Select: Drugs of Abuse-[facility] To inquire about any potential cross-reactivity of a specific drug not listed at this site, please contact the Chemistry Lab at . AMPHETAMINE QUAL, URINE Negative Negative [facility] BARBITURATE QUAL, URINE Negative Negative [facility] BENZODIAZEPINE QUAL, URINE Negative Negative [facility] CANNABINOIDS QUAL, URINE Presumptive Positive Negative [facility] COCAINE QUAL URINE Negative Negative [facility] OPIATE QUAL, URINE Negative Negative [facility] PCP QUAL, URINE Negative Negative [facility] Urine specimen (specimen) 04/19/2008 6:05 PM PROCESS STEWARD 04/19/2008 7:06 PM PROCESS STEWARD Alena Vernon MD URINE ORDERABLES Edited Performing Organization Address City/[facility] de Phone Number INTERFACE SYSTEM Refer to clinic/hospital department [facility] CLIA# [id number] [address] [place] [address] * TROPONIN (W/REFLEX CKMB/CK) (04/19/2008 5:35 PM PROCESS STEWARD) TROPONIN T <0.01 <=0.03 ng/mL [facility] TROPONIN T INTERP Negative [facility] Blood specimen (specimen) 04/19/2008 5:35 PM PROCESS STEWARD 04/19/2008 5:45 PM PROCESS STEWARD Alena Vernon MD CHEMISTRY ORDERABLES Edited Performing Organization Address City/[facility] de Phone Number INTERFACE SYSTEM Refer to clinic/hospital department [facility] CLIA# [id number] [address] [place] [address] * TSH REFLEXIVE (04/19/2008 5:35 PM PROCESS STEWARD) TSH 1.17 0.27 - 4.20 uU/mL [facility] Blood specimen (specimen) 04/19/2008 5:35 PM PROCESS STEWARD 04/19/2008 5:45 PM PROCESS STEWARD us Alena Vernon MD CHEMISTRY ORDERABLES Final Resul t INTERFACE SYSTEM Refer to clinic/hospital department [facility] CLIA# [id number] [address] [place] [address] * (ABNORMAL) COMPREHENSIVE METABOLIC PANEL (04/19/2008 5:35 PM PROCESS STEWARD) CALCIUM 10.1 8.6 - 10.2 mg/dL [facility] CHLORIDE 97 96 - 108 mmol/L [facility] ALBUMIN 5.1(H) 3.4 - 4.8 g/dL [facility] CREATININE 0.71 0.51 - 0.95 mg/dL [facility] SODIUM 137 135 - 145 mmol/L [facility] ALT 60(H) 0 - 31 U/L [facility] ALKALINE PHOSPHATASE 98 35 - 104 U/L [facility] BILIRUBIN TOTAL 0.3 0.2 - 1.0 mg/dL [facility] CO2 23 22 - 30 mmol/L [facility] TOTAL PROTEIN 8.6 6.3 - 8.6 g/dL [facility] POTASSIUM 3.0(L) 3.5 - 4.9 mmol/L [facility] GLUCOSE 134(H) 65 - 99 mg/dL [facility] AST 38(H) 12 - 32 U/L [facility] BUN 12 6 - 20 mg/dL [facility] GFR, >60 >=60 mL/min/1. 7 sq meter [facility] GFR >60 >=60 mL/min/1. 7 sq meter [facility] Comment: Modification of Diet in Renal Disease (MDRD) study formula. Estimated GFR rate interpretative information for both Americans and non- Americans is available on the [facility] Intranet at: [email or web address] Select: Lab Policies and Procedures Select: Reference Ranges - GFR Blood specimen (specimen) 04/19/2008 5:35 PM PROCESS STEWARD 04/19/2008 5:45 PM PROCESS STEWARD Alena Vernon MD CHEMISTRY ORDERABLES Edited INTERFACE SYSTEM Refer to clinic/hospital department [facility] CLIA# [id number] [address] [facility] [address] [place] [address] * (ABNORMAL) CBC WITH DIFFERENTIAL (04/19/2008 4:40 PM PROCESS STEWARD) HEMOGLOBIN 14.8 11.8 - 14.8 g/dL [facility] RDW 14.3 11.5 - 14.5 % [facility] WBC 9.8 4.0 - 9.8 K/uL [facility] MCH 29.6 27.2 - 32.6 pg [facility] MPV 9.3 9.3 - 12.4 fL [facility] HEMATOCRIT 44.3(H) 35.5 - 44.0 % [facility] RDW-STDEV 46.2 37.1 - 48.7 fL [facility] RBC 5.00(H) 3.90 - 4.90 M/uL [facility] MCHC 33.4 31.5 - 35.5 % [facility] MCV 88.6 82.0 - 99.0 fL [facility] PLATELETS 354(H) 140 - 350 K/uL [facility] LYMPHOCYTES 20 16 - 45 % [facility] LYMPHOCYTE ABSOLUTE 1.96 0.70 - 4.50 K/uL [facility] BASOPHILS 0 0 - 2 % [facility] BASOPHILS ABSOLUTE 0.02 0.00 - 0.20 K/uL [facility] MONOCYTES 7 3 - 13 % [facility] MONOCYTE ABSOLUTE 0.68 0.10 - 1.30 K/uL [facility] NEUTROPHILS 72(H) 45 - 70 % [facility] NEUTROPHIL ABSOLUTE 7.06(H) 1.90 - 7.00 K/uL [facility] EOSINOPHILS 1 0 - 7 % [facility] EOSINOPHIL ABSOLUTE 0.05 0.00 - 0.70 K/uL [facility] Blood specimen (specimen) 04/19/2008 4:40 PM PROCESS STEWARD 04/19/2008 5:43 PM PROCESS STEWARD us Alena Vernon MD HEMATOLOGY ORDERABLES Edited Performing Organization Address [facility] de Phone Number INTERFACE SYSTEM Refer to clinic/hospital department [facility] CLIA# [id number] [address] [place] [address] * ED HOLD (04/19/2008 4:40 PM PROCESS STEWARD) SPECIMEN HOLD, BLOOD 7 days [facility] Specimen of unknown material (specimen) 04/19/2008 4:40 PM PROCESS STEWARD 04/19/2008 5:21 PM PROCESS STEWARD us Authorized P Er CHEMISTRY ORDERABLES Final Resul t Performing Organization Address [facility] de Phone Number INTERFACE SYSTEM Refer to clinic/hospital department [facility] CLIA# [id number] [address] [place] [address] documented in this encounter Visit Diagnoses Diagnosis [...]
--- NOTE | 2024-10-29 10:45 | ED.GENADULT ---
HPI - General Adult General Chief complaint: Extremity Injury, Upper Stated complaint: Left Wrist Pain/Swelling Source: patient Mode of arrival: ambulatory Limitations: no limitations History of Present Illness HPI narrative: Patient presents for evaluation of left wrist pain. Symptom onset 4 days ago. She has history of gout and this feels similar. She rates her pain as 10 out 10 severity. She is currently on allopurinol. In the past she was given steroids, was seemed to help. She is diabetic but states home BS are very well controlled. She reports decreased ROM and states that movement makes her symptoms worse. She is right hand dominant. No paresthesias. Related Data Home Medications ?Medication ?Instructions ?Recorded ?Confirmed ?Last Taken ?Type atenolol 25 mg tablet 25 mg PO DAILY 09/30/20 03/08/24 Unknown History furosemide 20 mg tablet 20 mg PO QAM 09/30/20 03/08/24 Unknown History allopurinol 100 mg tablet 100 mg PO DAILY 10/18/23 03/08/24 Unknown History tirzepatide 12.5 mg/0.5 mL mg subcut 04/06/24 Unknown History subcutaneous pen injector (Mounjaro) citalopram 20 mg tablet mg 10/29/24 Unknown History cyclobenzaprine 10 mg tablet mg 10/29/24 Unknown History semaglutide 2 mg/dose (8 mg/3 mL) mg subcut 10/29/24 Unknown History subcutaneous pen injector (Ozempic) Allergies Allergy/AdvReac Type Severity Reaction Status Date / Time latex Allergy Intermediate skin Verified 10/29/24 10:04 redness SHELLFISH Allergy Unknown unknown Uncoded 10/29/24 10:04 Review of Systems Review of Systems: CONSTITUTIONAL: Denies fever, chills, or sweats. EYES: Denies visual changes, redness, or discharge. ENT: Denies rhinorrhea, congestion, sore throat, or otalgia. CARDIOVASCULAR: Denies chest pain, palpitations, or edema. RESPIRATORY: Denies cough or dyspnea. GASTROINTESTINAL: Denies abdominal pain, nausea, vomiting, or diarrhea. GENITOURINARY: Denies dysuria or hematuria. SKIN: Denies rash or itching. MUSCULOSKELETAL: Reports left wrist pain and decreased ROM. Denies other joint pain NEUROLOGIC: Denies headache, numbness, dizziness, or weakness. PSYCHIATRIC: Denies anxiety or depression. [facility] Past Medical History Medical History Fracture of posterior malleolus of left tibia Gout Diabetes HTN (hypertension) Surgical History Surgical History History of hysterectomy H/O foot surgery Social History Social History Smoking status: Never smoker Alcohol intake: never Substance use: never Occupation/Education: occupation Gender identity (if verbalized by the patient): Female Exam Narrative: GENERAL: Well-appearing, well-nourished, and in no acute distress. HEAD: Normocephalic, atraumatic. EYES: PERRLA and EOMI. ENT: Nares clear, no rhinorrhea or epistaxis. Mucous membranes moist. Oropharynx without tonsillar hypertrophy exudate or other lesions. Bilateral TMs pearly villaseñor nonbulging NECK: Supple. No adenopathy or masses. No carotid bruits or JVD CHEST: Clear to auscultation. No respiratory distress. No wheezes rales or rhonchi HEART: Regular rate and rhythm. No murmur heard. Normal peripheral pulses. ABDOMEN: Soft, nontender, nondistended, normal active bowel sounds. EXTREMITIES: There is tenderness in the left wrist with decreased range of motion. Trace swelling in left wrist. 4/5 hand order expediter strength on the left. 5/5 hand order expediter strength on the right. SKIN: Warm, dry, no rash. NEURO: No focal deficits. Alert and oriented x3. PSYCH: Normal mood and affect. Course Course Emergency Course: This is a 69-year-old female who presented for evaluation of left wrist pain consistent with previous bouts of gout. Will discharge with prednisone and hydrocodone. She should monitor her blood sugar closely at home. She should go to the ER for worsening symptoms. Pt in agreement with plan of care. Level of Care: Express Care Visit Vital Signs Vital signs: Vital Signs Temperature 36.6 C 10/29/24 10:06 Pulse Rate 87 10/29/24 10:06 Respiratory Rate 18 10/29/24 10:06 Blood Pressure 129/70 10/29/24 10:06 Pulse Oximetry 99 10/29/24 10:06 Oxygen Delivery Room Air 08/26/25 10:06 Temperature 36.6 C 10/29/24 10:06 Pulse Rate 87 10/29/24 10:06 Respiratory Rate 18 10/29/24 10:06 Blood Pressure 129/70 10/29/24 10:06 Pulse Oximetry 99 10/29/24 10:06 Oxygen Delivery Room Air 10/29/24 10:06 Medical Decision Making Vital Signs Vital Signs: Vital Signs Temperature 36.6 C 10/29/24 10:06 Pulse Rate 87 10/29/24 10:06 Respiratory Rate 18 10/29/24 10:06 Blood Pressure 129/70 10/29/24 10:06 Pulse Oximetry 99 10/29/24 10:06 Oxygen Delivery Room Air 10/29/24 10:06 Temperature 36.6 C 10/29/24 10:06 Pulse Rate 87 10/29/24 10:06 Respiratory Rate 18 10/29/24 10:06 Blood Pressure 129/70 10/29/24 10:06 Pulse Oximetry 99 10/29/24 10:06 Oxygen Delivery Room Air 10/29/24 10:06 Discharge Plan Discharge Clinical Impression: Acute gout of left wrist Patient Disposition: Home Condition: Stable Instructions: Antibiotic Form, Gout (ED) Patient Language: Niuean Prescriptions: New prednisone 50 mg tablet 50 mg PO DAILY Qty: 5 0RF hydrocodone-acetaminophen 5-325 mg tablet 1 - 2 tablet PO Q4H PRN (Reason: pain) Qty: 20 0RF prednisone 50 mg tablet 50 mg PO DAILY Qty: 5 0RF No Action allopurinol 100 mg tablet 100 mg PO DAILY cyclobenzaprine 10 mg tablet citalopram 20 mg tablet Ozempic 2 mg/dose (8 mg/3 mL) pen injector SUBCUT Mounjaro 12.5 mg/0.5 mL pen injector SUBCUT atenolol 25 mg tablet 25 mg PO DAILY furosemide 20 mg tablet 20 mg PO QAM Follow-up/Referrals: Moncho,Danny Hoskins MD [Primary Care Provider, Unknown] Time of Disposition: 10:44
== END 2024-10-29 10:54 | disposition home or self-care (01) ==
PROVIDERS: Emergency Provider Nurse Practitioner; PCP Internal Medicine
DX: M10.032 Idiopathic gout, left wrist (principal); E11.9 Type 2 diabetes mellitus without complications; Z79.85 Long-term (current) use of injectable non-insulin antidiabetic drugs; I10 Essential (primary) hypertension; Z90.710 Acquired absence of both cervix and uterus
CPT/HCPCS: 99213; G0463